=== PATIENT | female | born 1940 | race Caucasian/White ===

== ENCOUNTER → 2016-11-26 | Outpatient (CLI) | payer OTHER ==
[~2016-11-26] MED LIST: ATEN-171 PO; ATEN50TA21 PO; CITA20TA4 PO; CLX/20 PO; COEN1CAP17 PO; CRS10 PO; CYAN500T13 PO; DOCU100T7 PO; DOXY100C PO; MAGN1TAB19 PO; MECL1CHW4 PO; MISCCAP80 PO; MULTTAB58 PO; OMEG340C PO; OMEP20CA9 PO; OXYC1TAB3 PO; POTA20TA13 PO; PRED20TA PO; ROSU10TA24 PO
[2016-11-26 13:46] LABS: ESTIMATED AVERAGE GLUCOSE 111 mg/dl; HA1C FLAG Normal (Normal)
[2016-11-26 13:48] LABS: ALT/SGPT 30 U/L (12-78); AST/SGOT 22 U/L (15-37); BLOOD UREA NITROGEN 16 mg/dl (7-18); BUN/CREATININE RATIO 20.9 (10-20); CALCIUM 9.1 mg/dl (8.5-10.1); CARBON DIOXIDE 25 mmol/L (21-32); CHLORIDE 104 mmol/L (98-107); CHOLESTEROL 177 mg/dl (0-200); CREATININE 0.74 mg/dl (0.60-1.20); GLUCOSE 88 mg/dl (70-99); POTASSIUM 3.6 mmol/L (3.5-5.1); SODIUM 141 mmol/L (136-145); TRIGLYCERIDES 104 mg/dl (0-150); VERY LOW DENSITY LIPOPROT CALC 21 mg/dl
[2016-11-26 13:58] LABS: ALB/GLOB RATIO 1.2 (0.9-2); ALKALINE PHOSPHATASE 102 U/L (45-117); CHOLESTEROL/HDL RATIO 2.9; HDL CHOLESTEROL 62 mg/dl; LDL CHOLESTEROL CALCULATED 94 mg/dl
== END | disposition home or self-care (01) ==
LOC: C.LAB 12:00
PROVIDERS: ATTEND Internal Medicine
DX: R73.09 Other abnormal glucose (principal)

== ENCOUNTER → 2016-11-27 | Outpatient (CLI) | payer OTHER ==
--- NOTE | 2016-11-27 16:18 | MAMMOGRAPHY REPORT ---
BILATERAL DIGITAL SCREENING MAMMOGRAM WITH CAD: 11/27/2016 CLINICAL HISTORY: Routine screening examination. TECHNIQUE: Bilateral CC and MLO views were obtained. Current study was also evaluated with a Comput er Aided Detection (CAD) system. COMPARISON: Comparison is made to exams dated: 11/22/2015 mammogram, 08/18/2014 mammogram, 05/08/2012 mammogram, 04/23/2011 mammogram, 04/19/2010 mammogram - [facility], and 04/18/2009. BREAST COMPOSITION: There are scattered areas of fibroglandular density in both breasts. FINDINGS: There are benign calcifications scattered in the breasts. Minimal vascular calcification . An asymmetry in the lateral right breast appears very similar to the 04/19/2010, 04/15/2008 and 0 05/08/2012 mammograms, most likely normal glandular tissue. No new suspicious mass, architectural di stortion or cluster of microcalcifications is seen. IMPRESSION: ACR BI-RADS CATEGORY 1: NEGATIVE There is no mammographic evidence of malignancy. A 1 year screening mammogram is recommended. The p atient will receive written notification of the results. Approximately 10% of breast cancers are not detected with mammography. A negative mammographic repor t should not delay biopsy if a clinically suggestive mass is present. Sabrina Sears M.D. ay/:11/27/2016 15:00:29 Brass Bobbin Winder: Martha COBURN(Georges)(Cata), [facility] letter sent: Normal 1/2 BI-RADS Code: ACR BI-RADS Category 1: Negative
== END | disposition home or self-care (01) ==
LOC: C.MAMM 14:34
PROVIDERS: ATTEND Internal Medicine
DX: Z12.31 Encounter for screening mammogram for malignant neoplasm of breast (principal)

== ENCOUNTER 2017-07-23 16:22 | Emergency (ER) | payer OTHER ==
[~2017-07-23] VITALS: Ht 167.6 cm; Wt 79.6 kg
[~2017-07-23 16:22] MED LIST changes: -ATEN50TA21 PO; -CLX/20 PO; -COEN1CAP17 PO; -DOCU100T7 PO; -DOXY100C PO; -MAGN1TAB19 PO; -MULTTAB58 PO; -OMEP20CA9 PO; -OXYC1TAB3 PO; -POTA20TA13 PO; -PRED20TA PO; -ROSU10TA24 PO
[2017-07-23 16:27] VITALS: TEMP 36.8; Ht 167.6 cm; Wt 79.6 kg
[2017-07-23] MEDS ORDERED: KETOROLAC TROMETHAMINE 30 MG/ML VIAL IV STA (16:48)
[2017-07-23] MEDS ORDERED: DiphenhydrAMINE HCL 50 MG/ML VIAL IV STA (16:48)
[2017-07-23] MEDS ORDERED: SODIUM CHLORIDE 0.9% 1000ML 1,000 ML IV STA (16:48)
[2017-07-23] MEDS ORDERED: PROCHLORPERAZINE 5 MG/ML 2 ML VIAL IV STA (16:48)
[2017-07-23] MEDS ORDERED: ATEN50TA21 PO (17:03)
[2017-07-23] MEDS ORDERED: CLX/20 PO (17:03)
[2017-07-23] MEDS ORDERED: ROSU10TA24 PO (17:03)
--- NOTE | 2017-07-23 17:12 | DIAGNOSTIC IMAGING REPORT ---
CT SCAN OF THE BRAIN WITHOUT IV CONTRAST CLINICAL HISTORY: Headache. COMPARISON STUDY: CT of the brain dated 04/30/2014. TECHNIQUE: Unenhanced axial CT scan of the brain is performed from the vertex to the skull base. FINDINGS: Brain parenchyma: There are age-related involutional changes noting mild subcortical and periventricular microangiopathic change. There is no hemorrhage, mass effect, or evidence of acute territorial ischemia by CT criteria. Peñaloza-white matter is preserved. No extra-axial fluid collection is seen. Ventricles, sulci, cisterns: Prominent secondary to involutional change. Intracranial vasculature: There is atherosclerotic calcification of the cavernous carotid arteries. Calvarium: Unremarkable. Sinuses and mastoids: There is near complete opacification of the right maxillary antrum. Thickening and sclerosis of the sinus wall suggests chronicity. Calcified nodule debris is noted. Trace mucosal thickening is seen in the right frontal sinuses and the ethmoid sinuses. The mastoid air cells are well pneumatized. Orbits: The bony orbits are grossly intact. There are bilateral ocular lens implants. IMPRESSION: 1. There is no hemorrhage, mass effect, or evidence of acute territorial ischemia by CT criteria. 2. Chronic appearing paranasal sinus disease as above, greatest involving the right maxillary antrum. Electronically signed by: Reggie Hogan M.D. 07/23/2017 5:11 PM Dictated Date/Time: 07/23/2017 5:08 PM
[2017-07-23] MEDS ORDERED: OMEP20CA9 PO (17:18)
[2017-07-23] MEDS ORDERED: MULTTAB58 PO (17:18)
[2017-07-23] MEDS ORDERED: COEN1CAP17 PO (17:18)
[2017-07-23] MEDS ORDERED: POTA20TA13 PO (17:18)
[2017-07-23] MEDS ORDERED: MAGN1TAB19 PO (17:18)
[2017-07-23] MEDS ORDERED: DOCU100T7 PO (17:18)
--- NOTE | 2017-07-23 17:20 | EMERGENCY ROOM VISIT NOTE ---
ED Visit Note First contact with patient: 16:33 CHIEF COMPLAINT: Migraine headache - right side HISTORY OF PRESENT ILLNESS: This 77-year-old female patient presented to the emergency department ambulatory, with her daughter, with complaints of acute onset of a severe right sided headache that started approximately 2 hours prior to arrival. The patient states she did have a similar episode 2 days ago, where she had sudden onset of a right-sided headache. The patient states that she does have history of migraines, which have presented similarly, however has never come on all at once. The patient states on Saturday, she was able to control the headache with 2 extra strength Excedrin. She states she did take some Excedrin today, but is not experiencing relief of her symptoms. The patient was recently treated for a sinus infection, however did not take the entire course of the Augmentin. She states she took it for approximately 5 days. Patient did take a dose of Augmentin this evening when the headache began. She does have history of migraines, but has not had one for approximately 15 years. The pain at this time is severe on the right side of the face, radiating into the ear and the neck. Patient denies any trauma or falling. The patient states her depression has been worsening recently, and she has been crying a lot. The patient complains of her right teeth hurting, Lasix and sensitivity, and a pressure-like sensation in her head. The patient rates the pain 10/10. The patient denies fever or chills recently, and there is no weakness or numbness of the extremities. There is no difficulty with speech or vision. The pain is severe, constant, and it is slowly increasing in severity. This is not the worst headache of the life. She has not had recent imaging. The patient does report a history of sinus problems, and did recently begin seeing a local ENT. She became very concerned because her father of a CVA. She denies any dizziness, confusion, slurred speech, or facial droop. REVIEW OF SYSTEMS: A 10 system review of systems was performed with positives and pertinent negatives listed in the history of present illness. All other systems were reviewed and are negative. ALLERGIES: None MEDICATIONS: Excedrin, atenolol/chlorthalidone, citalopram, CoQ10, Crestor, magnesium, multivitamin, potassium, MiraLAX PMH: Migraines, hypertension, depression, hyperlipidemia, constipation, hypokalemia SOCIAL HISTORY: The patient lives locally with family. She denies drug, alcohol , tobacco use. PHYSICAL EXAM: Vital Signs: Reviewed Nurse's notes, vital signs stable. GENERAL: This is a 77-year-old white female, who appears in pain, but non toxic in appearance and in no acute distress. MENTAL STATUS: Alert, oriented, and coherent. HEENT: Normocephalic. PERRLA. EOMI. Nares patent, turbinates not inflamed. No drainage. There is tenderness of the right maxillary sinus. Tympanic membranes pearly peñaloza without erythema or effusion bilaterally. Mucous membranes moist. NECK: Supple, no nuchal rigidity, nontender, no lymphadenopathy. HEART: Regular rhythm and normal rate without murmurs, ectopy, gallops, or rubs. LUNGS: Clear to auscultation bilaterally without wheezes, rales or rhonchi. No dullness to percussion. No accessory muscle use. No retractions. SKIN: Normal. NEUROLOGICAL: Pupils are round, equal and react to light. The optic fundi are normal and the discs are flat. The patient moves all extremities well and the gait is normal. RADIOLOGY: CT Head without Contrast: CT SCAN OF THE BRAIN WITHOUT IV CONTRAST CLINICAL HISTORY: Headache. COMPARISON STUDY: CT of the brain dated 04/30/2014. TECHNIQUE: Unenhanced axial CT scan of the brain is performed from the vertex to the skull base. FINDINGS: Brain parenchyma: There are age-related involutional changes noting mild subcortical and periventricular microangiopathic change. There is no hemorrhage, mass effect, or evidence of acute territorial ischemia by CT criteria. Peñaloza-white matter is preserved. No extra-axial fluid collection is seen. Ventricles, sulci, cisterns: Prominent secondary to involutional change. Intracranial vasculature: There is atherosclerotic calcification of the cavernous carotid arteries. Calvarium: Unremarkable. Sinuses and mastoids: There is near complete opacification of the right maxillary antrum. Thickening and sclerosis of the sinus wall suggests chronicity. Calcified nodule debris is noted. Trace mucosal thickening is seen in the right frontal sinuses and the ethmoid sinuses. The mastoid air cells are well pneumatized. Orbits: The bony orbits are grossly intact. There are bilateral ocular lens implants. IMPRESSION: 1. There is no hemorrhage, mass effect, or evidence of acute territorial ischemia by CT criteria. 2. Chronic appearing paranasal sinus disease as above, greatest involving the right maxillary antrum. CT Sinuses without Contrast: SINUSES-MAXILLOFACIAL W/O CT DOSE: HISTORY: Pain right side headache/sinus pain TECHNIQUE: Multiaxial CT images of the paranasal sinuses were performed and reformatted in the coronal plane without the use of contrast. A dose lowering technique was utilized adhering to the principles of ALARA. COMPARISON: None. FINDINGS: Complete opacification right maxillary sinus. Partial calcification what is potentially expansile polypoid change. Expansile change through the medial wall right maxillary sinus to the right nasal canal and associated nasal turbinates. Nasal turbinates themselves show moderate hypertrophic change. There is complete occlusion of the right ostiomeatal unit which is expanded. Minimal mucosal thickening of the ethmoid and frontal air cells. The left ostiomeatal unit is patent. Left maxillary sinus is clear. The orbital margins show no definitive destructive change. The mastoid air cells are clear. The orbits are unremarkable. IMPRESSION: 1. Complete opacification right maxillary sinus with partial calcification of what appears to be expansile polypoid change. 2. The expansile polypoid lesion extends to the right nasal canal and right mid nasal turbinate. 3. Mild mucosal thickening of all remaining sinuses with the left ostiomeatal unit patent. 4. Hypertrophic and polypoid change of the nasal turbinates bilaterally EMERGENCY DEPARTMENT COURSE: I examined the patient. Initial labs were drawn. The patient was given Benadryl, Compazine, Toradol, IV fluids and did note some improvement in her symptoms. EKG did show normal sinus rhythm with a new onset left bundle branch block. The rate was 69 bpm. The patient is not having any cardiac symptoms including chest pain, pressure, dyspnea, or other associated symptoms. She states she was not told that she has a left bundle branch block in the past. Initial labs were reviewed. CBC was without leukocytosis, anemia, thrombocytopenia. CMP is without significant abnormalities. Based on the patient's new onset left bundle branch block, troponin and CK-MB were ordered. These tests were negative. CT of the head and sinuses was ordered and performed. This was reviewed by myself and radiologist with the above findings. I did discuss the case with Dr. Deluca, who did see and evaluate the patient. She did recommend giving the patient IV morphine and Decadron this time, as the patient continues to complain of some lingering pain. We agreed on the assessment and plan and discharge instructions. The patient was given discharge instructions at bedside. Medications were sent to the pharmacy. The patient was discharged home in good condition with her daughter driving. The differential diagnosis includes acute intracranial bleed, meningitis, encephalitis, mass or mass effect, sinusitis, infection, tumor, headache, temporal arteritis and carbon monoxide exposure, and migraine. DIAGNOSIS: Sinus headache, maxillary polyp, Left Bundle Branch Block. DISCHARGE INSTRUCTIONS & TREATMENT: You were seen in the emergency department today for a sinus headache. Imaging did show complete opacification of the right maxillary sinus. You were given pain medication in the emergency department which impairs her ability to drive. Please have drive or operate heavy machinery for the rest of the day. You have been prescribed OxyIR to be used for pain control. Take 1 tablets every 4-6 hours as needed for pain. This is a narcotic medication. You cannot drive or consume alcohol while on this medicine. This medicine should only be used for pain that cannot be controlled with [id number] pain medicines. You were prescribed doxycycline to be taken twice daily for 10 days. This is an antibiotic. All antibiotics have the potential to cause diarrhea. Stop this medication and contact a medical provider if you were to develop any significant adverse side effects including: wheezing, shortness of breath, passing out, vomiting, or a diffuse rash. Always take antibiotics as directed and COMPLETE the ENTIRE course regardless of the improvement of your symptoms. You have been prescribed Prednisone. This is a steroid which will help decrease your inflammation, redness, and itch. Take this medicine as prescribed. Take the ENTIRE 9 day course. It is best to take steroids early in the morning as PM dosing can affect your sleeping patterns. Please relax in a quiet, dark environment today. Drink plenty of fluids and stay well-hydrated. Incidentally, we did notice a left bundle branch block on your EKG. You should follow-up with your PCP regarding this. Your lab work and cardiac enzymes were normal in the emergency department. Please follow up with ENT this week if possible. Contact their office tomorrow to schedule an appointment. Return to the emergency department for worsening headache, dizziness, difficulty with speech, confusion, altered mental status, passing out, chest pain, dyspnea. Problem List Medical Problems: (1) Kidney stones Status: Chronic (2) Migraines Status: Chronic (3) Vertigo Status: Resolved Current/Historical Medications Scheduled Atenolol & Chlorthalidone (Tenoretic 50MG/25MG), 1 TAB PO DAILY Citalopram (Citalopram Hydrobromide), 20 MG PO DAILY Coenzyme Q10 (Ubidecarenone) (Co Q 10), 100 MG PO DAILY Docusate Sodium (Stool Softener), 100 MG PO BID Doxycycline Hyclate (Vibramycin), 100 MG PO BID Magnesium Oxide (Mg Supplement (Magnesium Oxide), 800 MG PO DAILY Multiple Vitamin (Multivitamin), 1 TAB PO DAILY Omeprazole (Prilosec), 20 MG PO DAILY Potassium Chloride Microencaps (Potassium Chloride Er), 40 MEQ PO DAILY Prednisone (Prednisone), 0 PO DAILY Rosuvastatin Calcium (Rosuvastatin Calcium), 10 MG PO DAILY Scheduled PRN Oxycodone Ir (Roxicodone Ir), 1 TAB PO Q4-6H PRN for Pain Allergies Coded Allergies: No Known Allergies (Unverified , 07/14/14) Vital Signs Date Time Temp Pulse Resp B/P (MAP) Pulse Ox O2 Delivery O2 Flow Rate FiO2 07/23/17 19:01 67 18 134/70 94 07/23/17 18:05 74 15 129/65 96 Room Air 07/23/17 17:20 74 19 153/77 95 Room Air 07/23/17 16:27 36.8 73 18 122/78 94 Room Air Laboratory Results 07/23/17 17:20 Red Blood Count 4.63, Mean Corpuscular Volume 89.8, Mean Corpuscular Hemoglobin 31.5, Mean Corpuscular Hemoglobin Concent 35.1, Mean Platelet Volume 8.8, Neutrophils (%) (Auto) 65.6, Lymphocytes (%) (Auto) 21.5, Monocytes (%) (Auto) 11.3, Eosinophils (%) (Auto) 1.1, Basophils (%) (Auto) 0.2, Neutrophils # (Auto ) 6.28, Lymphocytes # (Auto) 2.06, Monocytes # (Auto) 1.08, Eosinophils # (Auto ) 0.11, Basophils # (Auto) 0.02 07/23/17 17:20 Test 07/23/17 17:20 07/23/17 17:42 White Blood Count 9.58 K/uL (4.8-10.8) Red Blood Count 4.63 M/uL (4.2-5.4) Hemoglobin 14.6 g/dL (12.0-16.0) Hematocrit 41.6 % (37-47) Mean Corpuscular Volume 89.8 fL (80-100) Mean Corpuscular Hemoglobin 31.5 pg (25-34) Mean Corpuscular Hemoglobin Concent 35.1 g/dl (32-36) Platelet Count 259 K/uL (130-400) Mean Platelet Volume 8.8 fL (7.4-10.4) Neutrophils (%) (Auto) 65.6 % Lymphocytes (%) (Auto) 21.5 % Monocytes (%) (Auto) 11.3 % Eosinophils (%) (Auto) 1.1 % Basophils (%) (Auto) 0.2 % Neutrophils # (Auto) 6.28 K/uL (1.4-6.5) Lymphocytes # (Auto) 2.06 K/uL (1.2-3.4) Monocytes # (Auto) 1.08 K/uL (0.11-0.59) Eosinophils # (Auto) 0.11 K/uL (0-0.5) Basophils # (Auto) 0.02 K/uL (0-0.2) RDW Standard Deviation 43.6 fL (36.4-46.3) RDW Coefficient of Variation 13.3 % (11.5-14.5) Immature Granulocyte % (Auto) 0.3 % Immature Granulocyte # (Auto) 0.03 K/uL (0.00-0.02) Anion Gap 5.0 mmol/L (3-11) Est Creatinine Clear Calc Drug Dose 57.1 ml/min Estimated GFR () 75.5 Estimated GFR (Non- 65.2 BUN/Creatinine Ratio 20.6 (10-20) Calcium Level 9.4 mg/dl (8.5-10.1) Total Bilirubin 0.5 mg/dl (0.2-1) Aspartate Amino Transf (AST/SGOT) 31 U/L (15-37) Alanine Aminotransferase (ALT/SGPT) 42 U/L (12-78) Alkaline Phosphatase 122 U/L (45-117) Creatine Kinase MB 0.6 ng/ml (0.5-3.6) Troponin I < 0.015 ng/ml (0-0.045) Total Protein 7.3 gm/dl (6.4-8.2) Albumin 3.7 gm/dl (3.4-5.0) Globulin 3.6 gm/dl (2.5-4.0) Albumin/Globulin Ratio 1.0 (0.9-2) Creatine Kinase MB Ratio (0-3.0) Medications Administered Medications (Trade) Dose Ordered Sig/Deshawn Route Start Time Stop Time Status Last Admin Dose Admin Sodium Chloride 1,000 ml @ 999 mls/hr Q1H1M STAT IV 07/23/17 16:48 07/23/17 17:48 DC 07/23/17 17:20 999 MLS/HR Prochlorperazine Edisylate (Compazine Inj) 5 mg NOW STAT IV 07/23/17 16:48 07/23/17 16:52 DC 07/23/17 17:19 5 MG Ketorolac Tromethamine (Toradol Inj) 30 mg NOW STAT IV 07/23/17 16:48 07/23/17 16:52 DC 07/23/17 17:20 30 MG Diphenhydramine HCl (Benadryl Inj) 25 mg NOW STAT IV 07/23/17 16:48 07/23/17 16:52 DC 07/23/17 17:19 25 MG Dexamethasone Sodium Phosphate (Decadron Inj) 10 mg NOW ONCE IV 07/23/17 18:30 07/23/17 18:31 DC 07/23/17 18:42 10 MG Departure Information Impression Primary Impression: Antral (maxillary) polyp Additional Impression: Left bundle branch block (LBBB) on electrocardiogram Dispostion Home / Self-Care Condition GOOD Prescriptions Prednisone (Prednisone) 20 Mg Tab 0 PO DAILY, #18 TAB 3 DAILY FOR 3 DAYS, THEN 2 DAILY FOR 3 DAYS, THEN 1 DAILY FOR 3 DAYS. Prov: Katie Lroenzana PA-C 07/23/17 Oxycodone Ir (Roxicodone Ir) 5 Mg Tab 1 TAB PO Q4-6H Y for Pain, #15 TAB For Initial Treatment Prov: Katie Lorenzana PA-C 07/23/17 Doxycycline Hyclate (VIBRAMYCIN) 100 Mg Cap 100 MG PO BID for 10 Days, #20 CAP Prov: Katie Lorenzana PA-C 07/23/17 Referrals Leonidas Crisostomo M.D. (PCP) Nimo Mcguire PA Patient Instructions ED Headache Sinus, My [facility] Additional Instructions You were seen in the emergency department today for a sinus headache. Imaging did show complete opacification of the right maxillary sinus. You were given pain medication in the emergency department which impairs her ability to drive. Please have drive or operate heavy machinery for the rest of the day. You have been prescribed OxyIR to be used for pain control. Take 1 tablets every 4-6 hours as needed for pain. This is a narcotic medication. You cannot drive or consume alcohol while on this medicine. This medicine should only be used for pain that cannot be controlled with [id number] pain medicines. You were prescribed doxycycline to be taken twice daily for 10 days. This is an antibiotic. All antibiotics have the potential to cause diarrhea. Stop this medication and contact a medical provider if you were to develop any significant adverse side effects including: wheezing, shortness of breath, passing out, vomiting, or a diffuse rash. Always take antibiotics as directed and COMPLETE the ENTIRE course regardless of the improvement of your symptoms. You have been prescribed Prednisone. This is a steroid which will help decrease your inflammation, redness, and itch. Take this medicine as prescribed. Take the ENTIRE 9 day course. It is best to take steroids early in the morning as PM dosing can affect your sleeping patterns. Please relax in a quiet, dark environment today. Drink plenty of fluids and stay well-hydrated. Incidentally, we did notice a left bundle branch block on your EKG. You should follow-up with your PCP regarding this. Your lab work and cardiac enzymes were normal in the emergency department. Please follow up with ENT this week if possible. Contact their office tomorrow to schedule an appointment. Return to the emergency department for worsening headache, dizziness, difficulty with speech, confusion, altered mental status, passing out, chest pain, dyspnea. Problem Qualifiers
--- NOTE | 2017-07-23 17:28 | DIAGNOSTIC IMAGING REPORT ---
SINUSES-MAXILLOFACIAL W/O CT DOSE: HISTORY: Pain right side headache/sinus pain TECHNIQUE: Multiaxial CT images of the paranasal sinuses were performed and reformatted in the coronal plane without the use of contrast. A dose lowering technique was utilized adhering to the principles of ALARA. COMPARISON: None. FINDINGS: Complete opacification right maxillary sinus. Partial calcification what is potentially expansile polypoid change. Expansile change through the medial wall right maxillary sinus to the right nasal canal and associated nasal turbinates. Nasal turbinates themselves show moderate hypertrophic change. There is complete occlusion of the right ostiomeatal unit which is expanded. Minimal mucosal thickening of the ethmoid and frontal air cells. The left ostiomeatal unit is patent. Left maxillary sinus is clear. The orbital margins show no definitive destructive change. The mastoid air cells are clear. The orbits are unremarkable. IMPRESSION: 1. Complete opacification right maxillary sinus with partial calcification of what appears to be expansile polypoid change. 2. The expansile polypoid lesion extends to the right nasal canal and right mid nasal turbinate. 3. Mild mucosal thickening of all remaining sinuses with the left ostiomeatal unit patent. 4. Hypertrophic and polypoid change of the nasal turbinates bilaterally The above report was generated using voice recognition software. It may contain grammatical, syntax or spelling errors. Electronically signed by: Juan Diego Watkins M.D. 07/23/2017 5:26 PM Dictated Date/Time: 07/23/2017 5:23 PM
[2017-07-23 17:47] LABS: BASO % 0.2 %; BASO ABS # 0.02 K/uL (0-0.2); COMPLETE YES; EOS % 1.1 %; HEMATOCRIT 41.6 % (37-47); IG% 0.3 %; LYMPH % 21.5 %; LYMPH ABS # 2.06 K/uL (1.2-3.4); MEAN CELL VOLUME 89.8 fL (80-100); MEAN CORPUSCULAR HEMOGLOBIN 31.5 pg (25-34); MEAN CORPUSCULAR HGB CONC 35.1 g/dl (32-36); MEAN PLATELET VOLUME 8.8 fL (7.4-10.4); MONO % 11.3 %; NEUT % 65.6 %; PLATELET COUNT 259 K/uL (130-400); RED BLOOD COUNT 4.63 M/uL (4.2-5.4); WHITE BLOOD COUNT 9.58 K/uL (4.8-10.8)
[2017-07-23 18:05] LABS: ALT/SGPT 42 U/L (12-78); BLOOD UREA NITROGEN 18 mg/dl (7-18); BUN/CREATININE RATIO 20.6 (10-20); CALCIUM 9.4 mg/dl (8.5-10.1); CARBON DIOXIDE 33 mmol/L (21-32); CHLORIDE 104 mmol/L (98-107); CREATININE 0.85 mg/dl (0.60-1.20); GLUCOSE 80 mg/dl (70-99); POTASSIUM 3.5 mmol/L (3.5-5.1); SODIUM 142 mmol/L (136-145)
[2017-07-23 18:08] LABS: ALKALINE PHOSPHATASE 122 U/L (45-117); AST/SGOT 31 U/L (15-37)
[2017-07-23] MEDS ORDERED: MoRPHine SULFATE 4 MG/ML 1 ML CARP\\VIAL IV STA (18:25)
[2017-07-23] MEDS ORDERED: DEXAMETHASONE SOD INJ 10 MG/ML VIAL IV ONE (18:30)
[2017-07-23] MEDS ORDERED: MoRPHine SULFATE 2 MG/ML CARP ONE (18:33)
[2017-07-23] MEDS ORDERED: PRED20TA PO (18:40)
[2017-07-23] MEDS ORDERED: DOXY100C PO (18:40)
[2017-07-23] MEDS ORDERED: OXYC1TAB3 PO (18:40)
[2017-07-23 19:01] VITALS: BP 134/70; PULSE 67; O2SAT 94
--- NOTE | 2017-07-23 22:20 | EMERGENCY ROOM VISIT NOTE ---
ED Visit Note First contact with patient: 16:33 I have personally seen and evaluated the patient with the PA. I agree with the diagnosis and management decisions and have been personally involved in the case. The patient was placed on a steroid taper, doxycycline and will continue her nasal spray as prescribed. She is established with ENT and will follow-up with them in the next week. The patient seems comfortable with the plan will be discharged to her family members. She was advised to return to the ER for worsening of symptoms or any medical concerns. Please see Katie Lorenzana PA-C's notes for further details of the history, physical and visit.
== END 2017-07-23 19:00 | disposition home or self-care (01) ==
LOC: C.EDB 16:23 → C.EDC 19:00
DX: J33.8 Other polyp of sinus (principal); I44.7 Left bundle-branch block, unspecified; I10 Essential (primary) hypertension; F32.9 Major depressive disorder, single episode, unspecified; E78.5 Hyperlipidemia, unspecified; E87.6 Hypokalemia

== ENCOUNTER → 2017-08-14 | Outpatient (CLI) | payer OTHER ==
[~2017-08-14] MED LIST changes: -ATEN-171 PO; +ATEN50TA21 PO; -CITA20TA4 PO; +CLX/20 PO; +COEN1CAP17 PO; -CRS10 PO; -CYAN500T13 PO; +DOCU100T7 PO; +MAGN1TAB19 PO; -MECL1CHW4 PO; -MISCCAP80 PO; +MULTTAB58 PO; -OMEG340C PO; +OMEP20CA9 PO; +OXYC1TAB3 PO; +POTA20TA13 PO; +PRED20TA PO; +ROSU10TA24 PO
--- NOTE | 2017-08-14 10:38 | DIAGNOSTIC IMAGING REPORT ---
FUSION CT SINUSES W/O CLINICAL HISTORY: 77 years-old Female presenting with 09.82 Postnasal dripTO BE DONE IN 2 WEEKS. E X0D E [id number]. TECHNIQUE: Multidetector CT of the sinuses was performed without the use of intravenous contrast. IV contrast: None. A dose lowering technique was used consistent with the principles of ALARA (as low as reasonably achievable). COMPARISON: 07/23/2017. CT DOSE (mGy.cm): The estimated cumulative dose is 620.44 mGy.cm. FINDINGS: Derrick Helper topogram: Unremarkable. The right maxillary sinus is again completely opacified by peripherally hypodense and essentially hyperdense calcified material. There is erosion of the medial wall of the right maxillary sinus and obstruction secondary to mucosal thickening of the right ostiomeatal unit. Sclerosis of the right maxillary sinus further suggest chronic sinusitis. Remainder of sinuses and mastoid air cells clear. Left ostiomeatal units patent. Nasofrontal ethmoidal recesses patent. Minimal rightward deviation of the bony nasal septum without evidence of spurring. Mary bullosa configuration of the middle turbinates anteriorly. No evidence of bony dehiscence of the optic canals. Limited intracranial evaluation within normal limits. Orbits demonstrate absent bilateral port gamble lenses. No intraorbital inflammatory change. Remaining soft tissues of the face normal. Upper cervical spine with mild degenerative change. 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 Sclerotic right maxillary sinus moses further evidence chronic sinusitis. Electronically signed by: Leonidas Lemus M.D. 08/14/2017 10:37 AM Dictated Date/Time: 08/14/2017 10:31 AM
== END | disposition home or self-care (01) ==
LOC: C.CTS 10:13
PROVIDERS: ATTEND Physician Assistant
DX: R09.82 Postnasal drip (principal)

== ENCOUNTER → 2017-08-23 | Outpatient (CLI) | payer OTHER ==
[~2017-08-23] MED LIST changes: +BIOT1CAP8 PO; +COEN100C7 PO; +MAGN500C PO; +MISCCAP80 PO; +MULT-506 PO; +REGADENOSON 0.4 MG/5 ML SYR ONE; +VITAMIN B PO; +[UNRECOGNIZED DRUG - OTHER] PO
--- NOTE | 2017-08-27 13:51 | MYOCARDIAL PERFUSION SCAN ---
ONE-DAY NUCLEAR MEDICINE TECHNETIUM-99M CARDIOLITE MYOCARDIAL PERFUSION SCAN CLINICAL HISTORY: This stress test is being performed as a preoperative evaluation as the patient has a left bundle branch block. COMPARISON: None. TECHNIQUE: For the stress portion of the study, 28.5 mCi of Technetium 99 m Cardiolite IV was injected at 01:25 pm on 08/23/2017. 30 minutes following the injection, imaging of the heart was performed in multiple projection. For the rest portion of the study, 11.1 mCi of Technetium 99 m Cardiolite was injected IV at 11:29 am. One hour following the injection, imaging of the heart was performed in the same projections. For the stress portion of the study, 0.4 mg of Lexiscan was injected intravenously as per protocol. The patient did not experience chest discomfort and there were no EKG changes over the baseline abnormality. Following the study, the patient was hemodynamically stable without complaints. FINDINGS: The short axis, vertical long axis, and horizontal long axis images were reviewed in detail. There is a small defect in the distal anteroseptum present at stress and rest. This demonstrates normal systolic function and the rotating images suggest that this is breast attenuation rather than a myocardial infarction. There is no evidence of stress induced myocardial ischemia. The left ventricle demonstrates hyperdynamic systolic function without wall motion abnormalities. The ejection fraction is greater than 70%. CONCLUSIONS: 1. No definite scintigraphic evidence of a prior myocardial infarction or stress induced myocardial ischemia. 2. No Lexiscan induced chest pain. 3. No Lexiscan induced EKG changes over the baseline abnormality. 4. Hyperdynamic left ventricular ejection fraction of greater than 70% without wall motion abnormalities.
--- NOTE | 2017-08-29 12:41 | CODING QUERY MEDICAL NECESSITY ---
SUPPORTING DIAGNOSIS NEEDED Brad RODRÍGUEZ, A supporting diagnosis is required for the test/procedure performed on this patient in order for us to be reimbursed by the patient's insurance. Please provide a supporting diagnosis for the following test/procedure listed below next to the test name along with your signature. *If there is no additional diagnosis for this patient that would support the following test/procedure please document that below next to the test/procedure. Test(s)/Procedure(s) that require a supporting diagnosis: * ([id number]) MYOCARDIA PERF IMG (TC) SD DIAGNOSIS: DATE OF SERVICE: 08/23/17 Provider Signature: Date: Thank you Edmundo Pedroza Health Information Management Once completed, please kindly fax back to [phone] For questions please call [phone]
== END | disposition home or self-care (01) ==
LOC: C.NUCL 10:53
PROVIDERS: ATTEND Physician Assistant
DX: I44.7 Left bundle-branch block, unspecified (principal)

== ENCOUNTER → 2017-09-18 | Outpatient (CLI) | payer OTHER ==
[~2017-09-18] MED LIST changes: -COEN1CAP17 PO; -DOCU100T7 PO; -MAGN1TAB19 PO; -MULTTAB58 PO; -OXYC1TAB3 PO; -PRED20TA PO; -REGADENOSON 0.4 MG/5 ML SYR ONE
[2017-09-18 13:18] LABS: BASO % 0.4 %; BASO ABS # 0.03 K/uL (0-0.2); COMPLETE YES; EOS % 2.6 %; IG% 0.3 %; LYMPH % 30.1 %; LYMPH ABS # 2.23 K/uL (1.2-3.4); MEAN CELL VOLUME 88.8 fL (80-100); MEAN CORPUSCULAR HEMOGLOBIN 31.2 pg (25-34); MEAN CORPUSCULAR HGB CONC 35.1 g/dl (32-36); MEAN PLATELET VOLUME 8.9 fL (7.4-10.4); MONO % 7.4 %; NEUT % 59.2 %; PLATELET COUNT 234 K/uL (130-400); RED BLOOD COUNT 4.84 M/uL (4.2-5.4); WHITE BLOOD COUNT 7.41 K/uL (4.8-10.8)
[2017-09-18 13:29] LABS: PARTIAL THROMBOPLASTIN RATIO 1.1; PROTHROMBIN TIME (PATIENT) 10.9 SECONDS (9.0-12.0)
[2017-09-18 13:44] LABS: POTASSIUM 3.2 mmol/L (3.5-5.1)
== END | disposition home or self-care (01) ==
LOC: C.LAB 12:32
DX: Z01.812 Encounter for preprocedural laboratory examination (principal)

== ENCOUNTER → 2017-09-23 | Day surgery (SDC) | payer OTHER ==
[2017-08-29 11:46] VITALS: Ht 166.4 cm; Wt 79.5 kg
[~2017-09-23] VITALS: Ht 166.4 cm; Wt 79.5 kg
[~2017-09-23] MED LIST changes: +ATROPINE SULFATE 0.1 MG/ML 5ML SYR IV PRN; +CEFAZOLIN 2000MG IV PUSH 10 ML IV SCH; +DEXAMETHASONE SOD INJ 4 MG/ML VIAL ONE; +EpHEDrine SULFATE INJ 50 MG/ML AMP IV PRN; +EpHEDrine SULFATE INJ 50 MG/ML AMP ONE; +EpINEphrine INJ 1MG/ML AMP 1 MG/ML AMP ONE; +FENTANYL CITRATE INJ 50 MCG/1 ML 2 ML VIAL ONE; +GLYCOPYRROLATE INJ 0.2 MG/ML VIAL ONE; +HYDROCODONE/ACETAMOPHEN 5/325MG TAB PO PRN; +LACTATED RINGER'S 1000ML 1,000 ML IV SCH; +LIDOCAINE 4% MPF SOAK 5 ML = 1 DOSE TOP ONE; +LIDOCAINE HCL 2% 2 ML VIAL (20MG/ML) ONE; +LIDOCAINE/EPINEPHRINE 1% INJ 50 ML VIAL ONE; +MIDAZOLAM HCL 1 MG/ML 2ML VIAL ONE; +NEOSTIGMINE METHYLSULFATE 5 MG/5 ML SYR ONE; +ONDANSETRON INJ 2 MG/ML 2 ML VIAL IV PRN; +ONDANSETRON INJ 2 MG/ML 2 ML VIAL ONE; +OXYMETAZOLINE HCL 0.05% NA SPR 15 ML BTL PRN; +OXYMETAZOLINE HCL 0.05% NA SPR 15 ML BTL SCH; +PHENYLEPHRINE HCL INJ 10 MG/ML VIAL ONE; +PROPOFOL IV EMULSION 10 MG/ML 20 ML VIAL IV ONE; +SUCCINYLCHOLINE CHLORIDE 20 MG/ML 10 ML VIAL IV ONE
--- NOTE | 2017-09-23 13:56 | History and Physical: Surg Cnt ---
History & Physical Date Sep 23, 2017. Chief Complaint RIGHT CHRONIC SINUSITIS, BILATERAL CANELO BULLOSAE, BILATERAL INFERIOR TURBINATE HYPERTROPHY History of Present Illness The patient is a 77 year old female with complaints of CHRONIC RIGHT MAXILLARY SINUSITIS UNRESPONSIVE TO MAXIMAL MEDICAL RX. Past Medical/Surgical History Medical Problems: (1) Carpal Tunnel Syndrome (2) Cervical Disc Displacmnt (3) Cervicalgia (4) Hyperlipidemia Nec/Nos (5) Kidney stones (6) Migraines (7) Stricture Of Cervix (8) Vertigo ALSO ARTHRITIS, DEPRESSION, GERD, LEFT BBB PSH: S/P KNEE SURGERY, CERVICAL FUSION SURGERY, CARPAL TUNNEL SURGERY, OVARIAN CYSTECTOMY, SHOULDER SURGERY Allergies Coded Allergies: No Known Allergies (Unverified , 09/23/17) Home Medications Scheduled Atenolol & Chlorthalidone (Tenoretic 50MG/25MG), 1 TAB PO QAM Biotin (Biotin), 1 CAP PO QAM Citalopram (Citalopram Hydrobromide), 2 TAB PO QAM Coenzyme Q10 (Ubidecarenone) (Coq10), 1 CAP PO QAM Magnesium Oxide (Mg Supplement (Magnesium), 2 CAP PO QAM Multivitamin (Multivitamin), 1 TAB PO QAM Potassium Chloride Microencaps (Potassium Chloride Er), 40 MEQ PO QAM Probiotic Product (Probiotic), 1 CAP PO QAM Rosuvastatin Calcium (Rosuvastatin Calcium), 10 MG PO QAM [Complete Metabolism], 1 CAP PO QAM [Vitamin B], 1 TAB PO QAM Physical Examination Skin: warm/dry, no rash Eyes: normal inspection, EOMI, sclerae normal ENT: + pertinent finding (BILATERAL INFERIOR AND MIDDLE TURBINATE HYPERTROPHY) Head: normocephalic, atraumatic Neck: supple, no adenopathy, trachea midline Respiratory/Chest: lungs clear, normal breath sounds, no respiratory distress Cardiovascular: regular rate, rhythm, no edema, no murmur Neurologic/Psych: no motor/sensory deficits, alert, normal reflexes, oriented x 3 Diagnosis RIGHT CHRONIC SINUSITIS, BILATERAL CANELO BULLOSAE, BILATERAL INFERIOR TURBINATE HYPERTROPHY Plan of Treatment RIGHT MAXILLARY ANTROSTOMY, RIGHT ANTERIOR ETHMOIDECTOMY, BILATERAL CANELO BULLOSAE RESECTION, BILATERAL INFERIOR TURBINATE REDUCTION
--- NOTE | 2017-09-23 15:01 | [facility] Operative Report ---
Operative Report Operative Date Sep 23, 2017. Pre-Operative Diagnosis Chronic Sinusitis, Hypertrophy of Nasal Turbinates Post-Operative Diagnosis Same Procedure(s) Performed Bilateral Endosocopic Sinus Surgery, Bilateral Inferior Turbinate Reduction Surgeon Dr. Jimenez Radiation Protection Engineer Surgeon(s) None Estimated Blood Loss 50ML Findings 1. BILATERAL CANELO BULLOSA 2. BILATERAL INFERIOR TURBINATE HYPERTROPHY 3. PURULENCE AND INSPISSATED SECRETIONS COMPLETELY FILLING THE RIGHT MAXILLARY SINUS WITH SEVERE MUCOSAL EDEMA INVOLVING THE RIGHT MAXILLARY SINUS 4. MILD MUCOSAL THICKENING OF THE RIGHT ANTERIOR ETHMOID SINUS Specimens 1. Right Maxillary Sinus Contents for Culture and Gram Stain A. Right Maxillary Sinus Contents for permanent specimen I attest to the content of the Intraoperative Record and any orders documented therein. Any exceptions are noted below.
--- NOTE | 2017-09-23 15:03 | Discharge Instructions ---
Discharge Instructions Date of Service Sep 23, 2017. Admission Reason for Admission: Chronic Sinusitis, Hypertrophy Inferior Turbinate Discharge Discharge Diagnosis / Problem: SAME Discharge Goals Goal(s): Therapeutic intervention Activity Recommendations Activity Limitations: as noted below LIGHT ACTIVITY FOR 2 WEEKS AND NO DRIVING WHILE ON NORCO . Current Hospital Diet Patient's current hospital diet: Discharge Diet Recommended Diet: Regular Diet Procedures Procedures Performed: Bilateral Endosocopic Sinus Surgery, Bilateral Inferior Turbinate Reduction Pending Studies Studies pending at discharge: no Medical Emergencies . Who to Call and When: Medical Emergencies: If at any time you feel your situation is an emergency, please call 911 immediately. . Non-Emergent Contact Non-Emergency issues call your: Surgeon . . "Provider Documentation" section prepared by Germain Jimenez. . VTE Core Measure Inpt VTE Proph given/why not?: SCD's
[2017-09-23] MEDS: FENTANYL CITRATE INJ 50 MCG/1 ML 2 ML VIAL IV PRN ×4 (15:29→16:01)
--- NOTE | 2017-09-23 15:35 | OPERATIVE REPORT ---
DATE OF OPERATION: 09/23/2017 PREOPERATIVE DIAGNOSES: 1. Right chronic maxillary sinusitis. 2. Bilateral earl bullosa. 3. Bilateral inferior turbinate hypertrophy. POSTOPERATIVE DIAGNOSES: 1. Right chronic maxillary sinusitis. 2. Bilateral earl bullosa. 3. Bilateral inferior turbinate hypertrophy. PROCEDURES: 1. Right maxillary antrostomy with tissue removal. 2. Right anterior ethmoidectomy. 3. Bilateral endoscopic earl bullosa resection. 4. Bilateral inferior turbinate outfracture and turbinoplasty. SURGEON: Dr. Jimenez. ANESTHESIA: General endotracheal. ESTIMATED BLOOD LOSS: 50 mL. FINDINGS: 1. Bilateral earl bullosa. 2. Bilateral inferior turbinate hypertrophy. 3. Inspissated secretions and purulence completely filling the right maxillary sinus. 4. Severe right maxillary sinus mucosal thickening. 5. Mild right anterior ethmoid sinus mucosal thickening. SPECIMENS: Right maxillary sinus contents for Gram stain, aerobic culture and sensitivity as well as for permanent pathological assessment. COMPLICATIONS: None. INDICATIONS FOR THE PROCEDURE: The patient is a 77-year-old female with a history of right chronic sinusitis which has been unresponsive to maximal medical therapy. In addition, the patient has complaints of bilateral sinonasal congestion and nasal obstruction. She was found to have bilateral earl bullosa, bilateral inferior turbinate hypertrophy, and completely opacified right maxillary sinus on posttreatment fusion CT scan of the sinuses. She presents for the above-mentioned procedures on an outpatient elective basis. DESCRIPTION OF PROCEDURE: After informed consent had been obtained from the patient, the patient was wheeled to the operating room and placed on the operating table in supine position. Monitors were placed. After induction of general endotracheal anesthesia, the patient was prepped in usual fashion for endoscopic sinus surgery. Lidocaine and epinephrine pledgets were placed in the bilateral nasal cavities and pressure applied. After allowing adequate time for vasoconstriction, the left-sided pledgets were removed and 1% lidocaine with 1:100,000 epinephrine was used to inject the left middle turbinate. The right middle turbinate was then addressed in a similar fashion. A sickle knife was used to incise the left middle turbinate longitudinally and the lateral half of the left middle turbinate was removed using straight Arnie-Cut forceps and powered instrumentation. In this fashion, an endoscopic left earl bullosa resection was performed. Powered instrumentation was used to smooth the edge of the lateral half of the middle turbinate. Merogel was placed into the left middle meatus for hemostasis. The right side was then addressed in a similar fashion with the endoscopic earl bullosa resection. There was purulent debris noted to be emanating from the right maxillary sinus. A right maxillary antrostomy was performed using powered instrumentation. A large amount of inspissated secretions and purulence was carefully evacuated from the right maxillary sinus. Care was taken to evacuate all of the sinus contents. There was significant amount of inspissated secretions and purulence, which was sent off for Gram stain, aerobic culture and sensitivity. Severe mucosal thickening was seen within the right maxillary sinus and several pieces of mucosa were removed using 45 degree Arnie-Cut forceps for permanent pathological assessment. A right anterior ethmoidectomy was then performed using powered instrumentation. Merogel was then placed in the right ethmoid cavity/middle meatus. A Ruelas elevator was then used to infracture and subsequently outfracture the inferior turbinates bilaterally. Lidocaine 1% with 1:100,000 epinephrine was used to inject the inferior turbinates bilaterally. Using a 2.0 mm turbinate blade using powered instrumentation, bilateral inferior turbinoplasties were performed in a submucosal fashion. The nasal cavities and nasopharynx were then suctioned. An orogastric tube was placed and the stomach was suctioned free of air and stomach contents. This marked the end of the case. The patient tolerated the procedure well. There were no apparent complications. The patient was extubated and transferred to recovery room in stable condition. I attest to the content of the Intraoperative Record and any orders documented therein. Any exception s are noted below.
[2017-09-23 16:15] VITALS: BP 120/69; PULSE 73; TEMP 36.4; O2SAT 94
--- NOTE | 2017-09-23 16:51 | Anesthesia Progress Nt - [facility] ---
Anesthesia Post Op Note Date & Time Sep 23, 2017 at 16:51 Vital Signs Pain Intensity: 2.0 Vital Signs Past 12 Hours Date Time Temp Pulse Resp B/P (MAP) Pulse Ox O2 Delivery O2 Flow Rate FiO2 09/23/17 16:15 36.4 73 16 120/69 (86) 94 Room Air 09/23/17 16:11 131/36 09/23/17 16:10 68 19 09/23/17 16:10 68 19 96 09/23/17 16:08 36.3 70 20 131/36 94 Room Air 09/23/17 16:06 121/80 09/23/17 16:05 72 23 09/23/17 16:05 72 23 96 09/23/17 16:01 128/59 09/23/17 16:00 70 18 09/23/17 16:00 69 18 94 09/23/17 15:56 135/68 09/23/17 15:55 71 16 09/23/17 15:55 71 16 95 09/23/17 15:51 128/68 09/23/17 15:50 73 16 94 09/23/17 15:50 73 16 09/23/17 15:46 141/70 09/23/17 15:45 75 16 09/23/17 15:45 74 16 93 09/23/17 15:41 122/68 09/23/17 15:40 74 20 94 09/23/17 15:40 73 20 09/23/17 15:36 121/74 09/23/17 15:35 74 18 95 09/23/17 15:35 74 18 09/23/17 15:31 97/85 09/23/17 15:30 74 15 97 09/23/17 15:30 74 15 09/23/17 15:26 117/59 09/23/17 15:25 76 16 95 09/23/17 15:25 76 16 09/23/17 15:21 132/66 09/23/17 15:20 78 13 96 09/23/17 15:20 78 13 09/23/17 15:16 118/76 09/23/17 15:15 36.1 78 18 118/76 94 Humidified Oxygen Mask 09/23/17 11:15 36.2 61 18 137/78 (97) 96 Room Air Notes Mental Status: alert / awake / arousable, participated in evaluation Pt Amnestic to Procedure: Yes Nausea / Vomiting: adequately controlled Pain: adequately controlled Airway Patency, RR, SpO2: stable & adequate BP & HR: stable & adequate Hydration State: stable & adequate Anesthetic Complications: no major complications apparent
== END | disposition home or self-care (01) ==
LOC: X.SURG 10:45
DX: J32.0 Chronic maxillary sinusitis (principal); J34.3 Hypertrophy of nasal turbinates; J34.9 Unspecified disorder of nose and nasal sinuses; F41.8 Other specified anxiety disorders; I10 Essential (primary) hypertension
CPT/HCPCS: 30930; 31255; 31256; S1090

== ENCOUNTER → 2017-11-28 | Outpatient (CLI) | payer OTHER ==
[~2017-11-28] MED LIST changes: -ATROPINE SULFATE 0.1 MG/ML 5ML SYR IV PRN; -CEFAZOLIN 2000MG IV PUSH 10 ML IV SCH; -DEXAMETHASONE SOD INJ 4 MG/ML VIAL ONE; -EpHEDrine SULFATE INJ 50 MG/ML AMP IV PRN; -EpHEDrine SULFATE INJ 50 MG/ML AMP ONE; -EpINEphrine INJ 1MG/ML AMP 1 MG/ML AMP ONE; -FENTANYL CITRATE INJ 50 MCG/1 ML 2 ML VIAL ONE; -GLYCOPYRROLATE INJ 0.2 MG/ML VIAL ONE; -HYDROCODONE/ACETAMOPHEN 5/325MG TAB PO PRN; -LACTATED RINGER'S 1000ML 1,000 ML IV SCH; -LIDOCAINE 4% MPF SOAK 5 ML = 1 DOSE TOP ONE; -LIDOCAINE HCL 2% 2 ML VIAL (20MG/ML) ONE; -LIDOCAINE/EPINEPHRINE 1% INJ 50 ML VIAL ONE; -MIDAZOLAM HCL 1 MG/ML 2ML VIAL ONE; -NEOSTIGMINE METHYLSULFATE 5 MG/5 ML SYR ONE; -OMEP20CA9 PO; -ONDANSETRON INJ 2 MG/ML 2 ML VIAL IV PRN; -ONDANSETRON INJ 2 MG/ML 2 ML VIAL ONE; -OXYMETAZOLINE HCL 0.05% NA SPR 15 ML BTL PRN; -OXYMETAZOLINE HCL 0.05% NA SPR 15 ML BTL SCH; -PHENYLEPHRINE HCL INJ 10 MG/ML VIAL ONE; -PROPOFOL IV EMULSION 10 MG/ML 20 ML VIAL IV ONE; -ROSU10TA24 PO; +ROSU10TA35 PO; -SUCCINYLCHOLINE CHLORIDE 20 MG/ML 10 ML VIAL IV ONE
--- NOTE | 2017-11-29 13:25 | MAMMOGRAPHY REPORT ---
BILATERAL DIGITAL SCREENING MAMMOGRAM TOMOSYNTHESIS WITH CAD: 11/28/2017 CLINICAL HISTORY: Routine screening. Patient has no complaints. TECHNIQUE: Breast tomosynthesis in addition to standard 2D mammography was performed. Current study was also evaluated with a Computer Aided Detection (CAD) system. COMPARISON: Comparison is made to exams dated: 11/27/2016 mammogram, 11/22/2015 mammogram, 08/18/2014 mammogram, 05/08/2012 mammogram, 04/23/2011 mammogram, and 04/19/2010 mammogram - [facility] enter. BREAST COMPOSITION: There are scattered areas of fibroglandular density in both breasts. FINDINGS: No suspicious masses, calcifications, or areas of architectural distortion are noted in ei ther breast. There has been no significant interval change compared to prior exams. Scattered bilater al benign-appearing calcifications are not significantly changed. IMPRESSION: ACR BI-RADS CATEGORY 2: BENIGN There is no mammographic evidence of malignancy. A 1 year screening mammogram is recommended. The pa tient will receive written notification of the results. Approximately 10% of breast cancers are not detected with mammography. A negative mammographic report should not delay biopsy if a clinically suggestive mass is present. Simona Davis M.D. /:11/28/2017 15:14:28 Hide And Skin Classer: Mariely ATKINS)([place]), [facility] letter sent: Normal 1/2 BI-RADS Code: ACR BI-RADS Category 2: Benign
== END | disposition home or self-care (01) ==
LOC: C.MAMM 10:35
PROVIDERS: ATTEND Internal Medicine
DX: Z12.31 Encounter for screening mammogram for malignant neoplasm of breast (principal)

== ENCOUNTER → 2018-03-03 | Outpatient (CLI) | payer OTHER ==
[2018-03-03 17:14] LABS: LIPASE 194 U/L (73-393)
== END | disposition home or self-care (01) ==
LOC: C.LABBC 12:12
PROVIDERS: ATTEND Physician Assistant Medical
DX: R10.11 Right upper quadrant pain (principal)

== ENCOUNTER → 2018-03-18 | Outpatient (CLI) | payer OTHER ==
--- NOTE | 2018-03-19 05:56 | PAP/PSG TECHNICIAN REPORT ---
[facility] Telecommunications Technician Polysomnogram Report Study name: None Report date: 03/19/2018 Study date: 03/18/2018 Referring Physician: Emely Paniagua PA-C Name: DAMARISHAZELMICHAELIS ANGELINA Interpreting Physician: Urbano Robbins M.D. Date of : 1940 Telecommunications Technician: Keya Arrieta [facility]. Sex: Female Age: 77 StudyType: PSG Weight: 176 lbs Height: 77 years, Height Neck Circum:14.5in. BMI: Medications: Citalopram 20mg, CoQ10 100mg, Rosuvastatin Calcium 10mg, Atenolol-Chlorthalidone 50-25 mg, Potassium Chloride ER 20 MEQ, Mag Ox 400mg, Multivitamin, Probiotic, Stool Softener Patient History Study started on room air with no ETCO2 monitoring in room #6. 77 yr old female here tonight for a diagnostic psg. She has a history of depression, EDS and witnessed apnea. Her ESS=11/24. Neck circ=14.5inches Parameters Monitored NPSG: E1-M2, E2-M1, Fp1-M2, Fp2-M1, F3-M2, F4-M2, F4-M1, C3-M2, C4-M2, C4-M1, O1-M2, O2-M2, O2-M1, T3-M2, T4-M1, P3-M2, P4-M1, CHIN1, CHIN2, HR, EKG, Legs, PFLOW, SNOR, FLOW, CFLOW, Tidal Volume, THOR, ABDO, SpO2, PLTH, CPRESS, ETCO2 Wave, ETCO2, pH Sleep Architecture Sleep Stages Time at Lights Off 11:02:49 PM STAGES Time (min.) TST (%) Time at Lights On 5:22:49 AM Wake 74.5 -- Total Recording Time (TRT) 380.00 min. N1 24.5 8 Total Sleep Period (TSP) 342.0 min. N2 155.5 51 Total Sleep Time (TST) 305.5min. N3 39.0 13 Awake Time 74.5 min. REM 86.5 28 Wake after Sleep Onset 37.5 min. Sleep Efficiency (SE) 80 % Sleep Onset Latency (ARUNA) 37.0 min. Number of Stage 1 Shifts None Awakenings 25 Stage Changes 90 Number of REM periods 4 REM 86.5 28 REM Latency 105.0 min. NREM 219.0 72 Body Position Analysis Supine Right Left Side Prone Vertical Total Sleep Time (min.) 380.0 0.0 0.0 0.00 0.0 0.0 Total Sleep Time (%) 100% 0% 0% 0 0% N/A% Total Sleep Time REM (min.) 86.5 0.0 0.0 None 0.0 0.0 Total Sleep Time NREM (min.) 219.0 0.0 0.0 None 0.0 0.0 Intermittent Wake (min.) 74.5 0.0 0.0 None 0.0 0.0 Total Sleep Period (%) 100% None None None None None Arousals Myoclonus (PLM) * Events Count Index Events Count Index Spontaneous 13 3 Events Awake (PLMW) 123 99.1 Respiratory 9 1.6 Events Asleep w/ Arousal (PLMA) 8 1.6 PLM 7 2 Events Asleep w/o Arousal (PLMS) 64 12.6 Snoring 2 0 Total Asleep 72 14.1 Total 31 6 Total 195 31 Respiratory Analysis * CA OA MA CH H RERA Total Count 2 0 0 0 24 1 26 Index 0.4 0.0 0.0 0 4.7 0 5.3 Mean Duration 13.9 0.0 0.0 0.00 19.2 12.4 18.5 Longest Duration 17.6 0.0 0.0 0.00 0.0 12.4 37.2 Respiratory Event Summary Total Supine ~Supine Right Left Prone REM NREM Apneas Count 2 2 N/A N/A N/A N/A 1 1 Index 0.4 0 N/A N/A N/A N/A 1 0 Hypopneas (4% Desat) Count 24 24 N/A N/A N/A N/A 5 19 Index 4.7 4.7 N/A N/A N/A N/A 3.5 5.2 Apneas & All Hypopneas Count 26 26 N/A N/A N/A N/A 6 20 Index 5.1 5 N/A N/A N/A N/A 4.2 5.5 Respiratory Events (Suit Maker+All Hyp+RERA) Count 26 27 N/A N/A N/A N/A 6 20 Index 5.3 5 N/A N/A N/A N/A 4.2 5.8 Respiratory Related Arousal Count 9 27 N/A N/A N/A N/A 0 8 Index 1.6 2 N/A N/A N/A N/A 0 2 Snoring Analysis Supine Right Left Prone REM NREM Total Snore duration 2.3 min Snores count 90 N/A N/A N/A 17 73 90 Snore mean duration 1.5 Sec Snores index 18 N/A N/A N/A 11.8 20.0 17.7 TST with snoring (%) 0.7% Desaturation Event Summary: Minimum %SpO2 Event Count Mean/Min/Max Duration(sec.) Desaturation Index % Time In Bed > 90 49 25.7 / 10.5 / 50.3 23.1 33.6 86 - 90 24 30.8 / 11.0 / 53.8 5.7 66.2 81 - 85 0 N/A 0.0 0.1 76 - 80 0 N/A 0.0 0.0 71 - 75 0 N/A 0.0 0.0 66 - 70 0 N/A 0.0 0.0 61 - 65 0 N/A 0.0 0.0 56 - 60 0 N/A 0.0 0.0 51 - 55 0 N/A 0.0 0.0 < 50 0 N/A 0.0 0.0 Total REM NREM Awake <50% 0.0 min. 0.0 min. 0.0 min. 0.0 min. 51 - 60% 0.0 min. 0.0 min. 0.0 min. 0.0 min. 61 - 70% 0.0 min. 0.0 min. 0.0 min. 0.0 min. 71 - 80% 0.0 min. 0.0 min. 0.0 min. 0.0 min. 81 - 90% 251.1 min. 66.4 min. 170.4 min. 14.3 min. 91 - 100% 127.3 min. 20.2 min. 48.6 min. 58.6 min. Average 90 90 90 92 Minimum SpO2 85 85 86 86 Desaturation Event Index 9.3 9.0 7.9 16.1 # Desat. Events below 89% 39 12 19 8 Time(%) with Saturation below 89% 8.2 3.3 3.9 0.9 Time(min.) with Saturation below 89% 31.0 12.5 14.8 3.6 Time (mins) REM (mins) NREM (mins) % of TST SpO2 Below 90% 39 13 N26 41.0 SpO2 Below 88% 15 0 0 2 Heart Rate Analysis Min (bpm) Max (bpm) Average (bpm) Awake 54 127 62 NREM 56 76 61 REM 57 72 65 Overall 56 76 62 Supplemental O2 Values Minimum O2 level: None Value Start Time End Time Telecommunications Technician Comments Mrs. Krause slept in the supine position. Cardiac arrhythmia and some leg movements were noted, please see print outs. No bruxism noted. Snoring was noted and scored as a 1 on a scale of 1 through 5. (0=no snoring, 5=snoring loud enough to be heard through a closed door or down the [place] way) She did not use the restroom during the night. She stated that she slept about the same as when at home. The final report will be interpreted and signed by a sleep physician. The completed physician report will then be placed in the patient medical record. Therapy (cm H2O) 0 TIB (min.) 380.0 TST (min.) 305.5 Sleep Onset (min.) 37.0 REM Onset From Sleep (min.) 105.0 Sleep Efficiency % 80 Wakefulness (%) 20 Wakefulness (min.) 74.5 NREM 1 (%) 8 NREM 1 (min.) 24.5 NREM 2 (%) 51 NREM 2 (min.) 155.5 NREM 3 (%) 13 NREM 3 (min.) 39.0 REM (%) 28 REM (min.) 86.5 # Arousals 31 Arousal Index 6 # Snore 90 Snore Index 17.7 AHI 5.1 AHI Supine 5 AHI Non-Supine N/A NREM AHI 5.5 REM AHI 4.2 RDI 5.3 # Obstructive Apnea 0 # Central Apnea 2 # Mixed Apnea 0 # Hypopneas 24 RERAs 1 Total Respiratory Events 31 Time Below SpO2 89% (min.) 27.4 Mean NREM SpO2 (%) 90 Mean REM SpO2 (%) 90 Mean Sleep SpO2 (%) 90 Min NREM SpO2 (%) 86 Min REM SpO2 (%) 85 Position Supine (min.) 380.0 Position Non-supine (min.) 0.0 LM Index Sleep 14.1 LM Index NREM 14.5 LM Index REM 13.2 Mean Heart Rate (bpm) 62 Min Heart Rate (bpm) 56
== END | disposition home or self-care (01) ==
LOC: C.NEUR 20:00
PROVIDERS: ATTEND Physician Assistant Medical
DX: G47.30 Sleep apnea, unspecified (principal)

== ENCOUNTER → 2018-06-17 | Outpatient (CLI) | payer OTHER ==
[~2018-06-17] MED LIST changes: +ROSU10TA26 PO; -ROSU10TA35 PO
[2018-06-17 13:05] LABS: BASO % 0.3 %; BASO ABS # 0.02 K/uL (0-0.2); EOS % 2.6 %; EOS ABS # 0.16 K/uL (0-0.5); HEMATOCRIT 43.8 % (37-47); HEMOGLOBIN 15.1 g/dL (12.0-16.0); IG# 0.01 K/uL (0.00-0.02); LYMPH % 31.9 %; LYMPH ABS # 1.94 K/uL (1.2-3.4); MEAN CELL VOLUME 87.6 fL (80-100); MEAN CORPUSCULAR HEMOGLOBIN 30.2 pg (25-34); MEAN CORPUSCULAR HGB CONC 34.5 g/dl (32-36); MEAN PLATELET VOLUME 9.3 fL (7.4-10.4); MONO % 7.6 %; MONO ABS # 0.46 K/uL (0.11-0.59); NEUT % 57.4 %; NEUT ABS # 3.49 K/uL (1.4-6.5); PLATELET COUNT 250 K/uL (130-400); RED CELL DISTRIBUTION WIDTH CV 13.1 % (11.5-14.5); RED CELL DISTRIBUTION WIDTH SD 41.9 fL (36.4-46.3); WHITE BLOOD COUNT 6.08 K/uL (4.8-10.8)
[2018-06-17 13:22] LABS: HEMOGLOBIN A1C 5.7 % (4.5-5.6)
[2018-06-17 14:39] LABS: ALBUMIN 3.9 gm/dl (3.4-5.0); BLOOD UREA NITROGEN 11 mg/dl (7-18); CALCIUM 9.2 mg/dl (8.5-10.1); CARBON DIOXIDE 25 mmol/L (21-32); CREATININE 0.69 mg/dl (0.60-1.20); GLUCOSE 88 mg/dl (70-99); POTASSIUM 3.3 mmol/L (3.5-5.1); SODIUM 138 mmol/L (136-145); TOTAL PROTEIN 7.5 gm/dl (6.4-8.2)
[2018-06-17 14:40] LABS: ALKALINE PHOSPHATASE 105 U/L (45-117); ALT/SGPT 41 U/L (12-78); AST/SGOT 30 U/L (15-37); CHOLESTEROL 201 mg/dl (0-200); LDL CHOLESTEROL CALCULATED 109 mg/dl
== END | disposition home or self-care (01) ==
LOC: C.LABBC 10:59
PROVIDERS: ATTEND Internal Medicine
DX: J32.9 Chronic sinusitis, unspecified (principal); F32.9 Major depressive disorder, single episode, unspecified; M19.90 Unspecified osteoarthritis, unspecified site; E78.5 Hyperlipidemia, unspecified; R73.03 Prediabetes; I10 Essential (primary) hypertension; G31.84 Mild cognitive impairment of uncertain or unknown etiology

== ENCOUNTER → 2018-06-24 | Outpatient (CLI) | payer OTHER ==
--- NOTE | 2018-06-24 13:40 | DIAGNOSTIC IMAGING REPORT ---
BRAIN WITHOUT CONTRAST HISTORY: 78 years-old Female F32.9 [id number] Mild cognitive impairment acute depression with cognitive impairment. Acutely altered mental status. COMPARISON: Brain MRI 04/30/2014 TECHNIQUE: Multiplanar multisequence MRI of the brain was obtained without the use of IV contrast. FINDINGS: There is no restricted diffusion to suggest acute or subacute infarction. Midline structures including the corpus callosum, brainstem, optic chiasm, pituitary and pineal glands appear unremarkable the sagittal T1 series. 4 mm pineal gland cyst incidentally noted. Degenerative changes of the imaged cervical spine. No cerebellar tonsillar herniation. No pathologic blooming artifact on the T2 star series. There is no acute intracranial hemorrhage, midline shift, abnormal extra axial collections, hydrocephalus or intracranial mass. Moderate degree of scattered subcentimeter T2/FLAIR hyperintensities are again seen within the subcortical, deep and periventricular white matter of the cerebral hemispheres bilaterally, not significantly changed from comparison study 04/30/2014. Mild brain atrophy. The major flow voids appear patent. Mastoid air cells are clear. Moderate mucosal thickening with air-fluid level of the left maxillary sinus suggesting acute process. Mild mucosal thickening of the ethmoid air cells and right maxillary sinus. Soft tissues and skull appear unremarkable. Prior bilateral cataract repair. IMPRESSION: 1. Mild atrophy without acute intracranial abnormality. 2. Moderate chronic microvascular ischemic changes. 3. Paranasal sinus disease includes moderate disease about the left maxillary sinus. The above report was generated using voice recognition software. It may contain grammatical, syntax or spelling errors. Electronically signed by: Henok Christianson M.D. 06/24/2018 1:39 PM Dictated Date/Time: 06/24/2018 1:33 PM
== END | disposition home or self-care (01) ==
LOC: C.MRIBC 12:56
PROVIDERS: ATTEND Internal Medicine
DX: F32.9 Major depressive disorder, single episode, unspecified (principal); G31.84 Mild cognitive impairment of uncertain or unknown etiology; I67.9 Cerebrovascular disease, unspecified; J32.0 Chronic maxillary sinusitis

== ENCOUNTER 2022-04-20 22:46 | Observation (INO) ==
[2022-04-20] MEDS ORDERED: fentaNYL citrate 100 MCG/2 ML VIAL IV STA (23:16)
[2022-04-20] MEDS ORDERED: SODIUM CHLORIDE 0.9% 1000ML 500 ML IV ONE (23:16)
[2022-04-20] MEDS ORDERED: ONDANSETRON INJ 2 MG/ML 2 ML VIAL IV STA (23:16)
[2022-04-20 23:32] LABS: Basophils # (auto) 0.01 K/uL (0-0.2); Basophils % (auto) 0.1 %; Eosinophils # (auto) 0.17 K/uL (0-0.5); Eosinophils % (auto) 1.5 %; Hematocrit (blood only) 39.4 % (37-47); Hemoglobin 13.8 g/dL (12.0-16.0); Immature Granulocytes # (auto) 0.03 K/uL (0.00-0.02); Immature Granulocytes % (auto) 0.3 %; Lymphocytes # (auto) 1.94 K/uL (1.2-3.4); Lymphocytes % (auto) 17.3 %; Mean Corpuscular Hemoglobin 32.6 pg (25-34); Mean Corpuscular Volume 93.1 fL (80-100); Mean Platelet Volume 9.2 fL (7.4-10.4); Monocytes # (auto) 1.16 K/uL (0.11-0.59); Monocytes % (auto) 10.3 %; Neutrophils # (auto) 7.92 K/uL (1.4-6.5); Neutrophils % (auto) 70.5 %; Platelet Count 198 K/uL (130-400); RDW Coefficient of Variation 13.3 % (11.5-14.5); RDW Standard Deviation 45.4 fL (36.4-46.3); Red Blood Count 4.23 M/uL (4.2-5.4); White Blood Count 11.23 K/uL (4.8-10.8)
[2022-04-20 23:53] LABS: Alanine Aminotransferase 21 U/L (7-52); Albumin Globulin Ratio 1.6 (0.9-2); Albumin Level 4.2 gm/dl (3.4-5.0); Alkaline Phosphatase 100 U/L (34-104); Anion Gap 8 (3-11); Aspartate Aminotransferase 21 U/L (13-39); BUN Creatinine Ratio 26.5 (10-20); Bilirubin,Total 0.6 mg/dl (0.2-1.0); Blood Urea Nitrogen 22 mg/dl (6-23); Calcium 9.3 mg/dl (8.5-10.1); Carbon Dioxide 25 mmol/L (21-32); Chloride 105 mmol/L (98-107); Est GFR (African American) 75.6 ml/min; Est GFR (Non-African American) 65.2 ml/min; Globulin 2.6 gm/dl (2.5-4.0); Glucose 99 mg/dl (70-99(Fasting)); Lipase 66 U/L (11-82); Potassium 3.8 mmol/L (3.5-5.1); Sodium 138 mmol/L (136-145); Total Protein 6.8 gm/dl (6.0-8.3)
[2022-04-21 00:05] LABS: Troponin I High Sensitivity 3.5 pg/ml (0-14)
[2022-04-21 00:05] LABS: iSTAT Creatinine 0.8 mg/dl (0.6-1.3); iSTAT Hemoglobin 11.9 g/dl (12.0-16.0); iSTAT Ionized Calcium 1.1 mmol/l (1.12-1.32); iSTAT Potassium 3.5 mmol/L (3.3-5.0)
--- NOTE | 2022-04-21 00:05 | Emergency Department Note ---
ED Visit Note I agree with the diagnosis and management decisions and have been personally involved in the case. CT imaging of the abdomen pelvis was performed due to severe abdominal pain. CT imaging reveals diverticulosis without evidence of acute diverticulitis. Patient was noted to have a mild elevation of the WBC and significant abdominal pain. Patient was medicated with IV Zosyn IV Tylenol and IV fentanyl. Due to the ongoing discomfort, she was evaluated by the hospitalist service for presumed diverticulitis and further management. Please see Sera Hernandez PA-C's notes for further details of the history, physical and visit. .
[2022-04-21 00:21] LABS: Appearance Urine Clear (Clear); Bilirubin Urine Negative (Negative); Blood Urine Negative (Negative); Color Urine Yellow; Glucose Urine UA Negative (Negative); Ketones Urine Negative (Negative); Leukocyte Esterase Urine Negative (Negative); Nitrite Urine Negative (Negative); Protein Urine Negative (Negative); Specific Gravity Urine 1.025 (1.000-1.030); Urobilinogen Urine Negative (Negative)
[2022-04-21] MEDS ORDERED: OPTIRAY 320 100ml IV ONE ×2 (00:22→13:10)
[2022-04-21] MEDS ORDERED: ACETAMINOPHEN 1,000 MG/100 ML VIAL IV STA (00:46)
[2022-04-21] MEDS ORDERED: PIPERACILLIN/TAZOBACTAM 4.5 GM/120 ML BAG IV ONE (00:46)
--- NOTE | 2022-04-21 00:50 | Emergency Department Note ---
History of Present Illness General Chief complaint: Abdominal Pain Stated complaint: ABDOMINAL PAIN Time Seen by Provider: 04/20/22 23:05 History of Present Illness Maximum Pain Intensity: 5 This 81-year-old with dementia and depression presents to the ER complaining of severe sudden onset of abdominal pain Location: Abdomen Quality: Severe Severity: Severe Duration: This afternoon Timing: This afternoon Context: Daughter was concerned and brought the patient in Modifying factors: better with nothing; worse with movement patient denies chest pain, dyspnea, fevers, flulike illness, blood thinners, history of ischemic bowel, prior abdominal surgeries besides ovarian cyst issues. Home Medications Medication Instructions Recorded Confirmed Type donepezil 10 mg tablet 10 mg PO HS #90 tab 02/01/21 04/21/22 Rx multivitamin 1 tab PO QAM 02/15/21 04/21/22 History spironolactone 25 mg tablet 25 mg PO DAILY #90 tab 05/23/21 04/21/22 Rx rosuvastatin 10 mg tablet 10 mg PO DAILY #90 tab 08/18/21 04/21/22 Rx potassium chloride 10 mEq 10 meq PO DAILY #90 cap 10/18/21 04/21/22 Rx capsule,extended release sertraline 100 mg tablet 150 mg PO DAILY #135 tab 10/24/21 04/21/22 Rx Focus Factor Vitamin 1 tab PO DAILY 04/20/22 04/21/22 History valacyclovir 1 gram tablet 1,000 mg PO DAILY 04/20/22 04/21/22 History atenolol 50 mg tablet 50 mg PO DAILY 04/21/22 04/21/22 History memantine 10 mg tablet 10 mg PO BID 04/21/22 04/21/22 History Allergies Allergy/AdvReac Type Severity Reaction Status Date / Time simvastatin [From Zocor] Allergy Unknown CAN'T Verified 04/20/22 23:59 REMEMBER Past Med/Surg History Medical History Abdominal pain, RUQ Carpal tunnel syndrome Cervicalgia Chronic osteoarthritis Chronic sinusitis Confusion Depression Fatigue GERD without esophagitis Hoarseness Hyperlipidemia Hypertension Hypertrophy of both inferior nasal turbinates Kidney stones Left bundle branch block Migraines Osteopenia after menopause Other and unspecified hyperlipidemia Other cervical disc displacement, mid-cervical region, unspecified level Pre-diabetes Primary osteoarthritis, unspecified hand Sensorineural hearing loss (SNHL) of both ears Sleep apnea Stricture of cervix Vertigo Surgical History Cervical vertebral fusion H/O ovarian cystectomy History of arthroplasty History of carpal tunnel surgery History of shoulder surgery History of sinus surgery S/P excision of Flannery's neuroma Status post medial meniscus repair Family History Father Emphysema lung Asthma Sinusitis Mother Stroke syndrome Brother Stroke syndrome Epilepsy Esophageal cancer Sinusitis Coronary heart disease Sister Sinusitis Breast cancer Thoracic spinal stenosis Aunt Stroke Uncle Stroke Grandmother Cancer Denies family history of Ovarian cancer Prostate cancer Myocardial infarction Lung cancer Colorectal cancer Social History Smoking Status: Never smoker Second Hand Exposure: No; Hx Alcohol Use: No Hx Substance Use: No Preferred Language: [place] Communication Ability: Effective Visual Impairment: Limited Hearing Ability: Use of Hearing Aid marital status: / Current Living Situation: Alone current occupational status: retired How many Children do You have: 3 Feels Safe at Home: Yes Childhood Exposure to Second-Hand Smoke: Yes (dad smoked in house ) caffeine: Yes (soda ) Dental Care, Regularly: Yes Physical Activity Frequency: Does not Exercise Seatbelt Use: always Sunscreen Use: Yes (sometimes ) Review of Systems A total of 10 systems reviewed and were otherwise negative Physical Exam Vital Signs Vital Signs - 24 hr 04/20/22 22:57 04/20/22 23:06 04/21/22 00:33 Temperature 36.8 C Temperature Source Temporal Artery Scan Pulse Rate 74 Respiratory Rate 18 14 Blood Pressure 116/52 L Blood Pressure [Right Arm] 131/59 L Blood Pressure Mean 73 Blood Pressure Mean [Right Arm] 83 Blood Pressure Position Sitting Blood Pressure Position [Right Arm] Lying Pulse Oximetry 97 93 97 Oxygen Delivery Method Room Air Room Air Sepsis Recent Fever Within 48 Hours No Sepsis New/Unexplained Change in Mental Status N/A Sepsis Action Taken by Nursing No Action Required VITALS: Vitals are noted on the nurse's note and reviewed by myself. Vital signs stable. GENERAL: Elderly female writhing in pain, nondiaphoretic, well-developed well- nourished. SKIN: The skin was without rashes, erythema, edema, or bruising. There is no tenting of the skin. Capillary reflex less than 2 seconds. HEAD: Normocephalic atraumatic. EARS: External auditory canals clear, EYES: Pupils equal round and reactive to light and accommodation. Conjunctivae without injection, sclerae without icterus. Extraocular movements intact. NOSE: Patent, turbinates without inflammation or discharge. MOUTH: Mucous membranes moist. Pharynx without erythema or exudate. Uvula midline. Airway patent. Tongue does not deviate. NECK: Supple without nuchal rigidity. No lymphadenopathy. No thyromegaly. Cervical spine is nontender. No JVD. HEART: Regular rate and rhythm LUNGS: Clear to auscultation bilaterally without wheezes, rales or rhonchi. No retractions or accessory muscle use. ABDOMEN: Positive bowel sounds x 4. Normal tympanic percussion. Soft, diffuse severe tenderness throughout, without masses or organomegaly. Ramírez sign negative. No guarding or rebound tenderness. No CVA tenderness MUSCULOSKELETAL: No muscle atrophy, erythema, or edema noted. NEURO: Patient was alert and oriented to person place and time. Normal sensati on to light and sharp touch. No focal neurological deficits. Course Administered Medications Discontinued Medications Fentanyl Citrate (Fentanyl Citrate 100 Mcg/2 Ml Vial) 25 mcg IV NOW STA Stop: 04/20/22 23:17 Last Admin: 04/20/22 23:33 Dose: 25 mcg Documented by: [id number] Sodium Chloride (Nss 1000ml) 500 mls @ 999 mls/hr IV .Q31M ONE Stop: 04/20/22 23:46 Last Admin: 04/20/22 23:32 Dose: 999 mls/hr Documented by: [id number] Ioversol (Optiray 320 100ml) 94 ml IV ONCE ONE Stop: 04/21/22 00:23 Last Admin: 04/21/22 00:25 Dose: 94 ml Documented by: [id number] Ondansetron HCl (Ondansetron Inj 2 Mg/Ml 2 Ml Vial) 4 mg IV NOW STA Stop: 04/20/22 23:17 Last Admin: 04/20/22 23:33 Dose: 4 mg Documented by: [id number] Medical Decision Making Medical Records Attestation: I reviewed the patient's medical records. Home Medications Current Medication List: was personally reviewed by me Laboratory Data Attestation: I reviewed the patient's lab results. Result diagrams: 04/20/22 23:20 04/20/22 23:20 Lab Results 04/20/22 04/20/22 04/20/22 Range/Units 23:20 23:20 23:20 WBC 11.23 H (4.8-10.8) K/uL RBC 4.23 (4.2-5.4) M/uL Hgb 13.8 (12.0-16.0) g/dL POC Hgb (12.0-16.0) g/dl Hct 39.4 (37-47) % POC Hct (37-47) % MCV 93.1 (80-100) fL MCH 32.6 (25-34) pg MCHC 35.0 (32-36) g/dL RDW Std Deviation 45.4 (36.4-46.3) fL RDW Coeff of Major 13.3 (11.5-14.5) % Plt Count 198 (130-400) K/uL MPV 9.2 (7.4-10.4) fL Immature Gran % (Auto) 0.3 % Neut % (Auto) 70.5 % Lymph % (Auto) 17.3 % Humphreys % (Auto) 10.3 % Eos % (Auto) 1.5 % Baso % (Auto) 0.1 % Neut # (Auto) 7.92 H (1.4-6.5) K/uL Lymph # (Auto) 1.94 (1.2-3.4) K/uL Humphreys # (Auto) 1.16 H (0.11-0.59) K/uL Eos # (Auto) 0.17 (0-0.5) K/uL Baso # (Auto) 0.01 (0-0.2) K/uL Immature Gran # (Auto) 0.03 H (0.00-0.02) K/uL POC Sodium (135-144) mmol/L Sodium 138 (136-145) mmol/L POC Potassium (3.3-5.0) mmol/L Potassium 3.8 (3.5-5.1) mmol/L POC Chloride (101-112) mmol/L Chloride 105 (98-107) mmol/L Carbon Dioxide 25 (21-32) mmol/L POC Total CO2 (24-31) mmol/L Anion Gap 8 (3-11) POC Anion Gap (16-25) mmol/L POC BUN (7-18) mg/dl BUN 22 (6-23) mg/dl Creatinine 0.83 (0.6-1.2) mg/dl POC Creatinine (0.6-1.3) mg/dl Est Cr Clr Drug Dosing Not Reportable Est GFR ( Amer) 75.6 ml/min Est GFR (Non-Af Amer) 65.2 ml/min BUN/Creatinine Ratio 26.5 H (10-20) Glucose 99 (70-99(Fasting)) mg/dl POC Glucose (other) (70-99) mg/dl Lactate 1.0 (0.4-2.0) mmol/L Calcium 9.3 (8.5-10.1) mg/dl POC Ioniz Calcium Celine (1.12-1.32) mmol/l Magnesium 2.0 (1.7-2.4) mg/dl Total Bilirubin 0.6 (0.2-1.0) mg/dl AST 21 (13-39) U/L ALT 21 (7-52) U/L Alkaline Phosphatase 100 (34-104) U/L Troponin I High Sens 3.5 (0-14) pg/ml Total Protein 6.8 (6.0-8.3) gm/dl Albumin 4.2 (3.4-5.0) gm/dl Globulin 2.6 (2.5-4.0) gm/dl Albumin/Globulin Ratio 1.6 (0.9-2) Lipase 66 (11-82) U/L Urine Color Urine Appearance (Clear) Urine pH (4.5-7.5) Ur Specific [place] (1.000-1.030) Urine Protein (Negative) Urine Glucose (UA) (Negative) Urine Ketones (Negative) Urine Blood (Negative) Urine Nitrite (Negative) Urine Bilirubin (Negative) Urine Urobilinogen (Negative) Ur Leukocyte Esterase (Negative) 04/20/22 04/20/22 Range/Units 23:20 23:51 WBC (4.8-10.8) K/uL RBC (4.2-5.4) M/uL Hgb (12.0-16.0) g/dL POC Hgb 11.9 L (12.0-16.0) g/dl Hct (37-47) % POC Hct 35 L (37-47) % MCV (80-100) fL MCH (25-34) pg MCHC (32-36) g/dL RDW Std Deviation (36.4-46.3) fL RDW Coeff of Major (11.5-14.5) % Plt Count (130-400) K/uL MPV (7.4-10.4) fL Immature Gran % (Auto) % Neut % (Auto) % Lymph % (Auto) % Humphreys % (Auto) % Eos % (Auto) % Baso % (Auto) % Neut # (Auto) (1.4-6.5) K/uL Lymph # (Auto) (1.2-3.4) K/uL Humphreys # (Auto) (0.11-0.59) K/uL Eos # (Auto) (0-0.5) K/uL Baso # (Auto) (0-0.2) K/uL Immature Gran # (Auto) (0.00-0.02) K/uL POC Sodium 141 (135-144) mmol/L Sodium (136-145) mmol/L POC Potassium 3.5 (3.3-5.0) mmol/L Potassium (3.5-5.1) mmol/L POC Chloride 106 (101-112) mmol/L Chloride (98-107) mmol/L Carbon Dioxide (21-32) mmol/L POC Total CO2 22 L (24-31) mmol/L Anion Gap (3-11) POC Anion Gap 17.0 (16-25) mmol/L POC BUN 21 H (7-18) mg/dl BUN (6-23) mg/dl Creatinine (0.6-1.2) mg/dl POC Creatinine 0.8 (0.6-1.3) mg/dl Est Cr Clr Drug Dosing Est GFR ( Amer) ml/min Est GFR (Non-Af Amer) ml/min BUN/Creatinine Ratio (10-20) Glucose (70-99(Fasting)) mg/dl POC Glucose (other) 95 (70-99) mg/dl Lactate (0.4-2.0) mmol/L Calcium (8.5-10.1) mg/dl POC Ioniz Calcium Celine 1.10 L (1.12-1.32) mmol/l Magnesium (1.7-2.4) mg/dl Total Bilirubin (0.2-1.0) mg/dl AST (13-39) U/L ALT (7-52) U/L Alkaline Phosphatase (34-104) U/L Troponin I High Sens (0-14) pg/ml Total Protein (6.0-8.3) gm/dl Albumin (3.4-5.0) gm/dl Globulin (2.5-4.0) gm/dl Albumin/Globulin Ratio (0.9-2) Lipase (11-82) U/L Urine Color Yellow Urine Appearance Clear (Clear) Urine pH 7.0 (4.5-7.5) Ur Specific [place] 1.025 (1.000-1.030) Urine Protein Negative (Negative) Urine Glucose (UA) Negative (Negative) Urine Ketones Negative (Negative) Urine Blood Negative (Negative) Urine Nitrite Negative (Negative) Urine Bilirubin Negative (Negative) Urine Urobilinogen Negative (Negative) Ur Leukocyte Esterase Negative (Negative) Imaging Data Attestation: I personally reviewed and interpreted this imaging study as follows: MDM Narrative Prior records/ancillary studies reviewed. Triage Nursing notes reviewed. Additional history obtained from family. The patient's history was concerning for abdominal pain. Differential diagnosis: Etiologies such as appendicitis, diverticulitis, PUD, biliary pathology, UTI, pancreatitis, obstruction, mesenteric ischemia, aortic pathology, infections, inflammatory bowel disease, renal colic, as well as others were entertained. Physical examination findings: As above. ER treatment provided: An order was placed for continuous cardiac monitoring. The monitor shows a rate of 60-100 with a sinus rhythm. Fluids fentanyl Zofran Tylenol Zosyn On reassessment the patient felt better. Diagnostics interpreted by me: ECG: Ordered for abdominal pain EKG: Normal sinus, left bundle branch block, no acute ST-T wave changes. Impression normal sinus rhythm with a left bundle branch block interpreted by myself I think arrhythmia is unlikely. EKG shows no interval abnormalities such as QT prolongation or WPW. There are no findings to suggest Brugada syndrome. Cardiac monitoring in the emergency department reveals no tachycardic or bradycardic dysrhythmia. Hypertrophic cardiomyopathy was considered but there are no clear historical elements pointing toward this. EKG is not suggestive. The QRS voltage is not extremely large and there are no suggestive Q waves. The labs revealed negative lactic. Mild leukocytosis Imaging studies: Preliminary Findings Only See Final Report For Complete Findings CT ABDOMEN & PELVIS With Contrast: Diverticulitis noted near the transition of the descending and sigmoid colon in the left lateral pelvis. No evidence for perforation or abscess. No evidence for bowel obstruction. The intra-abdominal solid organs are stable in appearance from the examination dated 07/15/2021. No appreciable alteration. No other significant alteration. Radiologist: Tristan Rivera MD Consultation: A consultation was placed with the hospitalist. The case was discussed and diagnostics were reviewed. The patient was evaluated in the ER for further treatment. Exam and history seem consistent with diverticulitis. Patient was in severe amount of pain. Patient will be admitted. Medicine was consulted. She is given pain meds and antibiotics. She was reassessed multiple times. Patient and family are agreeable. By the evaluation outlined above emergent etiologies such as appendicitis, PUD, biliary pathology, UTI, pancreatitis, obstruction, mesenteric ischemia, aortic pathology inflammatory bowel disease, renal colic, as well as others were deemed relatively unlikely. The pt/daughter informed about the findings as listed above. All questions were answered and pleased with the treatment. The chart was completed utilizing [employer] Speech voice recognition software. Grammatical errors, random word insertions, pronoun errors, and incomplete sentences are an occassional consequence of this system due to software limitations, ambient noise, and hardware issues. Any formal questions or c oncerns about the content, text, or information contained within the body of this dictation should be directly addressed to the physician assistant professor of philosophy for clarification. Impression & Plan Diverticulitis Discharge Plan Visit Data Chief Complaint: Abdominal Pain Stated Complaint: ABDOMINAL PAIN ED Provider: Paola Deluca ED Midlevel Provider: Teresa Hernandez Discharge Problem: Diverticulitis Patient Disposition: Admitted As Inpatient Condition: Good Forms Stand Alone Forms: My [facility] Alg Prescriptions Prescriptions: No Action donepezil 10 mg tablet 10 mg PO HS Qty: 90 RF: 3 spironolactone 25 mg tablet 25 mg PO DAILY Qty: 90 RF: 3 rosuvastatin 10 mg tablet 10 mg PO DAILY Qty: 90 RF: 3 potassium chloride 10 mEq capsule, extended release 10 meq PO DAILY Qty: 90 RF: 3 sertraline 100 mg tablet 150 mg PO DAILY Qty: 135 RF: 3 multivitamin Tablet 1 tab PO QAM RF: 0 valacyclovir 1 gram Tablet 1,000 mg PO DAILY RF: 0 Focus Factor Vitamin 1 tab PO DAILY RF: 0 atenolol 50 mg tablet 50 mg PO DAILY RF: 0 memantine 10 mg tablet 10 mg PO BID RF: 0 Referrals Referrals: Leonidas Crisostomo MD [Primary Care Provider] -
--- NOTE | 2022-04-21 01:49 | History & Physical Report ---
Date of Service April 21, 2022 Assessment & Plan (1) Diverticulitis: Plan: 81yo female with history of dementia, HTN, HLP presenting with acute LLQ abdominal pain that began 04/20/22. Patient found to have acute uncomplicated diverticulitis - no perforation/abscess. She is afebrile, HD stable. Very uncomfortable in the ER with significant abdominal tenderness. Workup otherwise significant for WBC=11.23. -Admit to medical -Keep NPO for now. Advance to clear liquids as tolerated -Zosyn 3.375gm IV q 8 hours -Morphine PRN -Zofran PRN -Gentle IV hydration with LR at 100mL/hr x 2 liters -Serial abdominal exam to assess for progression of pain or distention - reim aging if patient's clinical symptoms progress -Monitor for improvement in symptoms. Patient will be clear for discharge when pain improves, tolerating PO. She should complete 10-14 days of antibiotics Recommended for followup colonoscopy in 6-8 weeks if desired (2) Dementia: Plan: Patient with dementia. Daughter reports that she becomes confused in the hospital -Frequent orientation, ambulation as tolerated -Maintenance of sleep/wake cycle as able -Continue Aricept and Namenda -Continue Sertraline -Avoid potentially delirium inducing agents (3) Hypertension: Plan: Blood pressure adequately controlled at present. Per last PCP note, Atenolol was decreased to 25mg po daily -Continue Atenolol 25mg po daily -Continue to monitor BP (4) Hyperlipemia: Plan: Chronic. Stable -Continue Rosuvastatin 10mg po daily (5) Depression: Plan: Chronic. -Continue Sertraline (6) Sleep apnea: Plan: Chronic. No device use Plan: F/E/N - LR at 100mL/hr x 2 liters, electrolytes WNL, NPO for now - advance to clear liquids as tolerated Ppx - low risk for DVT Code - Full per discussion with patient Dispo - Admit to medical History of Present Illness Chief Complaint: abdominal pain Primary Care Provider: Leonidas Crisostomo MD Brunilda Krause is an 81yo female with history of HTN, HLP, GERD and Dementia presenting with acute uncomplicated diverticulitis. Patient developed left sided lower abdominal pain yesterday 04/20/22 which has been progressing in severity. The pain is severe, 10/10, cramping in nature. She has some associated chills but otherwise is without nausea, vomiting, diarrhea or distentions. She reports she is not passing gas. Is uncertain of when her last BM was. Patient with dementia, becomes confused when in the hospital. She presently lives alone with family close by to check on her. She had an episode of diverticulitis many years ago. In the ER patient noted to be in severe discomfort. She was provided with IV Fentanyl - still in discomfort. Afebrile, HD stable ER Course: Acetaminophen, Fentanyl 25mcg IV, Zofran 4mg, Zosyn 4.5gm, NSS x 500 Allergies Allergy/AdvReac Type Severity Reaction Status Date / Time simvastatin [From Zocor] Allergy Unknown CAN'T Verified 04/20/22 23:59 REMEMBER Home Medications Medication Instructions Recorded Confirmed Type donepezil 10 mg tablet 10 mg PO HS #90 tab 02/01/21 04/21/22 Rx multivitamin 1 tab PO QAM 02/15/21 04/21/22 History spironolactone 25 mg tablet 25 mg PO DAILY #90 tab 05/23/21 04/21/22 Rx rosuvastatin 10 mg tablet 10 mg PO DAILY #90 tab 08/18/21 04/21/22 Rx potassium chloride 10 mEq 10 meq PO DAILY #90 cap 10/18/21 04/21/22 Rx capsule,extended release sertraline 100 mg tablet 150 mg PO DAILY #135 tab 10/24/21 04/21/22 Rx Focus Factor Vitamin 1 tab PO DAILY 04/20/22 04/21/22 History valacyclovir 1 gram tablet 1,000 mg PO DAILY 04/20/22 04/21/22 History atenolol 50 mg tablet 50 mg PO DAILY 04/21/22 04/21/22 History memantine 10 mg tablet 10 mg PO BID 04/21/22 04/21/22 History Past Med/Surg History Medical History Abdominal pain, RUQ Carpal tunnel syndrome Cervicalgia Chronic osteoarthritis Chronic sinusitis Confusion Depression Fatigue GERD without esophagitis Hoarseness Hyperlipidemia Hypertension Hypertrophy of both inferior nasal turbinates Kidney stones Left bundle branch block Migraines Osteopenia after menopause Other and unspecified hyperlipidemia Other cervical disc displacement, mid-cervical region, unspecified level Pre-diabetes Primary osteoarthritis, unspecified hand Sensorineural hearing loss (SNHL) of both ears Sleep apnea Stricture of cervix Vertigo Surgical History Cervical vertebral fusion H/O ovarian cystectomy History of arthroplasty History of carpal tunnel surgery History of shoulder surgery History of sinus surgery S/P excision of Flannery's neuroma Status post medial meniscus repair Family History Father Emphysema lung Asthma Sinusitis Mother Stroke syndrome Brother Stroke syndrome Epilepsy Esophageal cancer Sinusitis Coronary heart disease Sister Sinusitis Breast cancer Thoracic spinal stenosis Aunt Stroke Uncle Stroke Grandmother Cancer Denies family history of Ovarian cancer Prostate cancer Myocardial infarction Lung cancer Colorectal cancer Social History Smoking Status: Never smoker Second Hand Exposure: No; Hx Alcohol Use: No Hx Substance Use: No Preferred Language: Malay Communication Ability: Effective Visual Impairment: Limited Hearing Ability: Use of Hearing Aid marital status: / Current Living Situation: Alone current occupational status: retired How many Children do You have: 3 Feels Safe at Home: Yes Childhood Exposure to Second-Hand Smoke: Yes (dad smoked in house ) caffeine: Yes (soda ) Dental Care, Regularly: Yes Physical Activity Frequency: Does not Exercise Seatbelt Use: always Sunscreen Use: Yes (sometimes ) Review of Systems Review of Systems: All systems reviewed & are unremarkable except as noted in HPI & below Physical Exam Physical Exam: General: patient resting comfortably, NAD, non-toxic in appearance, AA&O to person and location. Provides adequate history Skin: warm, dry, intact, no rashes or lesions HEENT: NC/AT, PERRL, EOMI, anicteric sclera, conjunctiva without injection, external ear normal to inspection and nontender, nares patent, moist mucus membranes, dentition intact, no oropharyngeal lesions, neck supple, trachea midline, no LAD, no thyromegaly, no JVD Heart: +S1/S2, regular, no m/r/g Lungs: equal air entry bilaterally, no rales/rhonchi/wheezes Abd: +BS, soft, mildly distended - very tender to palpation in LLQ with voluntary guarding, no rebound tenderness Ext: warm, 2+ pulses in UE/LE bilaterally, no clubbing/cyanosis or edema Neuro: nonfocal, patient AA&O x 3, speech intact, no facial droop, moving all extremities on command with equal strength 5/5 Results & Data Results & Data ([facility]) Vital Signs (Past 12 Hours) Vital Signs Temp Pulse Resp BP BP Pulse Ox 04/21/22 00:33 14 131/59 L 97 04/20/22 23:06 93 04/20/22 22:57 36.8 C 74 18 116/52 L 97 Laboratory Results Laboratory Results WBC 11.23 K/uL (4.8-10.8) H 04/20/22 23:20 RBC 4.23 M/uL (4.2-5.4) 04/20/22 23:20 Hgb 13.8 g/dL (12.0-16.0) 04/20/22 23:20 POC Hgb 11.9 g/dl (12.0-16.0) L 04/20/22 23:51 Hct 39.4 % (37-47) 04/20/22 23:20 POC Hct 35 % (37-47) L 04/20/22 23:51 MCV 93.1 fL (80-100) 04/20/22 23:20 MCH 32.6 pg (25-34) 04/20/22 23:20 MCHC 35.0 g/dL (32-36) 04/20/22 23:20 RDW Std Deviation 45.4 fL (36.4-46.3) 04/20/22 23:20 RDW Coeff of Major 13.3 % (11.5-14.5) 04/20/22 23:20 Plt Count 198 K/uL (130-400) 04/20/22 23:20 MPV 9.2 fL (7.4-10.4) 04/20/22 23:20 Immature Gran % (Auto) 0.3 % 04/20/22 23:20 Neut % (Auto) 70.5 % 04/20/22 23:20 Lymph % (Auto) 17.3 % 04/20/22 23:20 [place] % (Auto) 10.3 % 04/20/22 23:20 Eos % (Auto) 1.5 % 04/20/22 23:20 Baso % (Auto) 0.1 % 04/20/22 23:20 Neut # (Auto) 7.92 K/uL (1.4-6.5) H 04/20/22 23:20 Lymph # (Auto) 1.94 K/uL (1.2-3.4) 04/20/22 23:20 [place]ry # (Auto) 1.16 K/uL (0.11-0.59) H 04/20/22 23:20 Eos # (Auto) 0.17 K/uL (0-0.5) 04/20/22 23:20 Baso # (Auto) 0.01 K/uL (0-0.2) 04/20/22 23:20 Immature Gran # (Auto) 0.03 K/uL (0.00-0.02) H 04/20/22 23:20 POC Sodium 141 mmol/L (135-144) 04/20/22 23:51 Sodium 138 mmol/L (136-145) 04/20/22 23:20 POC Potassium 3.5 mmol/L (3.3-5.0) 04/20/22 23:51 Potassium 3.8 mmol/L (3.5-5.1) 04/20/22 23:20 POC Chloride 106 mmol/L (101-112) 04/20/22 23:51 Chloride 105 mmol/L (98-107) 04/20/22 23:20 Carbon Dioxide 25 mmol/L (21-32) 04/20/22 23:20 POC Total CO2 22 mmol/L (24-31) L 04/20/22 23:51 Anion Gap 8 (3-11) 04/20/22 23:20 POC Anion Gap 17.0 mmol/L (16-25) 04/20/22 23:51 POC BUN 21 mg/dl (7-18) H 04/20/22 23:51 BUN 22 mg/dl (6-23) 04/20/22 23:20 Creatinine 0.83 mg/dl (0.6-1.2) 04/20/22 23:20 POC Creatinine 0.8 mg/dl (0.6-1.3) 04/20/22 23:51 Est Cr Clr Drug Dosing Not Reportable 04/20/22 23:20 Est GFR ( Amer) 75.6 ml/min 04/20/22 23:20 Est GFR (Non-Af Amer) 65.2 ml/min 04/20/22 23:20 BUN/Creatinine Ratio 26.5 (10-20) H 04/20/22 23:20 Glucose 99 mg/dl (70-99(Fasting)) 04/20/22 23:20 POC Glucose (other) 95 mg/dl (70-99) 04/20/22 23:51 Lactate 1.0 mmol/L (0.4-2.0) 04/20/22 23:20 Calcium 9.3 mg/dl (8.5-10.1) 04/20/22 23:20 POC Ioniz Calcium Celine 1.10 mmol/l (1.12-1.32) L 04/20/22 23:51 Magnesium 2.0 mg/dl (1.7-2.4) 04/20/22 23:20 Total Bilirubin 0.6 mg/dl (0.2-1.0) 04/20/22 23:20 AST 21 U/L (13-39) 04/20/22 23:20 ALT 21 U/L (7-52) 04/20/22 23:20 Alkaline Phosphatase 100 U/L (34-104) 04/20/22 23:20 Troponin I High Sens 3.5 pg/ml (0-14) 04/20/22 23:20 Total Protein 6.8 gm/dl (6.0-8.3) 04/20/22 23:20 Albumin 4.2 gm/dl (3.4-5.0) 04/20/22 23:20 Globulin 2.6 gm/dl (2.5-4.0) 04/20/22 23:20 Albumin/Globulin Ratio 1.6 (0.9-2) 04/20/22 23:20 Lipase 66 U/L (11-82) 04/20/22 23:20 Urine Color Yellow 04/20/22 23:20 Urine Appearance Clear (Clear) 04/20/22 23:20 Urine pH 7.0 (4.5-7.5) 04/20/22 23:20 Ur Specific [place] 1.025 (1.000-1.030) 04/20/22 23:20 Urine Protein Negative (Negative) 04/20/22 23:20 Urine Glucose (UA) Negative (Negative) 04/20/22 23:20 Urine Ketones Negative (Negative) 04/20/22 23:20 Urine Blood Negative (Negative) 04/20/22 23:20 Urine Nitrite Negative (Negative) 04/20/22 23:20 Urine Bilirubin Negative (Negative) 04/20/22 23:20 Urine Urobilinogen Negative (Negative) 04/20/22 23:20 Ur Leukocyte Esterase Negative (Negative) 04/20/22 23:20 SARS-CoV-2, RNA, NAAT NEGATIVE (NEGATIVE) 04/21/[address] Abdomen and Pelvis with Contrast: Per STAT rad - diverticulitis noted near the transition of the descending and sigmoid colon in the left lateral pelvis. No evidence for perforation or abscess. No evidence for bowel obstruction. The intra-abdominal solid organs are stable in appearance from the examination dated 07/15/21. No appreciable alteration. No other significant alteration. PG Care Time/CCT Total # of Minutes Spent Total Time Spent with Patient: Total time spent is greater than 50% in coordination of care (as documented) at patient's floor/unit and/or counseling patient: Coding Level of Care Code 04684 Initial Inpt Care Lvl 3 Diagnoses Diverticulitis K57.92 Hyperlipemia E78.5 Dementia F03.90 Dementia type: unspecified type Dementia behavioral disturbance: without behavioral disturbance Hypertension I10 Hypertension type: essential hypertension Sleep apnea G47.33 Sleep apnea type: obstructive Depression F32.9 Depression Type: reactive depression (1) Dementia Dementia type: unspecified type Dementia behavioral disturbance: without behavioral disturbance Qualified Code(s): F03.90 - Unspecified dementia without behavioral disturbance (2) Hypertension Hypertension type: essential hypertension Qualified Code(s): I10 - Essential (primary) hypertension (3) Sleep apnea Sleep apnea type: obstructive Qualified Code(s): G47.33 - Obstructive sleep apnea (adult) (pediatric) (4) Depression Depression Type: reactive depression Qualified Code(s): F32.9 - Major depressive disorder, single episode, unspecified
[2022-04-21] MEDS ORDERED: LACTATED RINGER'S 1,000 ML IV SCH (03:50)
[2022-04-21] MEDS ORDERED: MoRPHine SULFATE 2 MG/ML CARP IV PRN ×3 (03:50→12:43)
[2022-04-21] MEDS: PIPERACILLIN/TAZOBACTAM 3.375 GM in DEXTROSE 5% 100 ML IV SCH ×3 (06:57→16:54)
--- NOTE | 2022-04-21 07:41 | CT Scan Report ---
CT abd pelvis IV con only CLINICAL HISTORY: Left-sided lower abdominal pain and nausea COMPARISON STUDY: 07/15/2021 CT DOSE: 628.32 mGy.cm TECHNIQUE: Standard CT of the Abdomen and Pelvis was performed with IV contrast. A dose lowering annie hnique was utilized adhering to the principles of ALARA. Contrast Volume: Optiray 320, 94 ml. The patient did not receive oral contrast. FINDINGS: Lung base: The lung bases are clear with minimal linear scarring again seen. Coronary artery calcific ation is present. Abdominal cavity: There is no evidence for abdominal mass, adenopathy or ascites. Liver: There is homogeneous attenuation of the liver parenchyma. There is no evidence for enhancing m ass lesion. Spleen: There is homogeneous attenuation of the splenic parenchyma. There is no enhancing mass lesion . Pancreas: There is homogeneous attenuation of the pancreatic parenchyma. There is no evidence for mas s lesion or peripancreatic fluid collection. Gall Bladder: The gallbladder is well distended with no evidence for intraluminal calculi, wall thick ening or pericholecystic edema. Adrenal glands: The adrenal glands are normal in size and attenuation. There is no evidence for enhan cing mass lesion. Kidneys: There is homogeneous attenuation of the renal parenchyma bilaterally. There is no evidence f or renal calculus or hydronephrosis. There is no evidence for enhancing mass. Bilateral parapelvic cy sts are again seen. Bowel: The bowel loops are normally placed within the abdomen and pelvis without evidence for dilatat ion or obstruction. There is no evidence for mass lesion. There is extensive diverticulosis of the de scending and sigmoid colon. There is acute diverticulitis of the distal descending colon with pericol onic inflammatory changes present. There is no evidence for perforation or abscess. There is no evide nce for free air. Bladder: The bladder is within normal limits with no evidence for focal mass, calculus or diverticulu m. : There is no evidence for pelvic mass or adenopathy. There is no evidence for pelvic ascites. Vasculature: There is no evidence for aneurysmal dilatation of the abdominal aorta. Atherosclerotic c alcification is present. Osseous structures: There is no acute osseous pathology. Degenerative changes are seen. IMPRESSION: 1. Extensive diverticulosis of the descending and sigmoid colon with mild acute diverticulitis of the distal descending colon. No evidence for perforation or abscess. ACT 112: Negative or not required by law. Electronically signed by: Carlo Driver M.D. 04/21/2022 7:39 AM
--- NOTE | 2022-04-21 09:30 | Surgery Consultation ---
Date of Consultation April 21, 2022 Assessment & Plan (1) Diverticulitis: Certainly no urgent indication for surgical intervention. CT scan reviewed. Appears to be relatively mild inflammation. We will keep her n.p.o. and IV antibiotics. We will follow along. She is a poor historian does not recall her last colonoscopy was. Could consider colonoscopy in 6 to 8 weeks after resolution. (2) Dementia: (3) Hypertension: History of Present Illness Attending Physician: Desire Jones MD History of Present Illness Brunilda is a very pleasant 81-year-old lady. She states that she has had left lower quadrant abdominal pain since yesterday. She presented to the hospital and work-up has revealed acute diverticulitis. She does not recall ever having this before. Allergies Allergy/AdvReac Type Severity Reaction Status Date / Time simvastatin [From Zocor] Allergy Unknown CAN'T Verified 04/20/22 23:59 REMEMBER Home Medications Medication Instructions Recorded Confirmed Type donepezil 10 mg tablet 10 mg PO HS #90 tab 02/01/21 04/21/22 Rx multivitamin 1 tab PO QAM 02/15/21 04/21/22 History spironolactone 25 mg tablet 25 mg PO DAILY #90 tab 05/23/21 04/21/22 Rx rosuvastatin 10 mg tablet 10 mg PO DAILY #90 tab 08/18/21 04/21/22 Rx potassium chloride 10 mEq 10 meq PO DAILY #90 cap 10/18/21 04/21/22 Rx capsule,extended release sertraline 100 mg tablet 150 mg PO DAILY #135 tab 10/24/21 04/21/22 Rx Focus Factor Vitamin 1 tab PO DAILY 04/20/22 04/21/22 History valacyclovir 1 gram tablet 1,000 mg PO DAILY 04/20/22 04/21/22 History atenolol 50 mg tablet 50 mg PO DAILY 04/21/22 04/21/22 History memantine 10 mg tablet 10 mg PO BID 04/21/22 04/21/22 History Patient History Medical History Abdominal pain, RUQ Carpal tunnel syndrome Cervicalgia Chronic osteoarthritis Chronic sinusitis Confusion Depression Fatigue GERD without esophagitis Hoarseness Hyperlipidemia Hypertension Hypertrophy of both inferior nasal turbinates Kidney stones Left bundle branch block Migraines Osteopenia after menopause Other and unspecified hyperlipidemia Other cervical disc displacement, mid-cervical region, unspecified level Pre-diabetes Primary osteoarthritis, unspecified hand Sensorineural hearing loss (SNHL) of both ears Sleep apnea Stricture of cervix Vertigo Surgical History Cervical vertebral fusion H/O ovarian cystectomy History of arthroplasty History of carpal tunnel surgery History of shoulder surgery History of sinus surgery S/P excision of Flannery's neuroma Status post medial meniscus repair Family History Father Emphysema lung Asthma Sinusitis Mother Stroke syndrome Brother Stroke syndrome Epilepsy Esophageal cancer Sinusitis Coronary heart disease Sister Sinusitis Breast cancer Thoracic spinal stenosis Aunt Stroke Uncle Stroke Grandmother Cancer Denies family history of Ovarian cancer Prostate cancer Myocardial infarction Lung cancer Colorectal cancer Social History Smoking Status: Never smoker Second Hand Exposure: No; Hx Alcohol Use: No Hx Substance Use: No Preferred Language: [place] Citizen Communication Ability: Effective Visual Impairment: Limited Hearing Ability: Use of Hearing Aid 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 marital status: / Current Living Situation: Alone current occupational status: retired How many Children do You have: 3 Feels Safe at Home: Yes Childhood Exposure to Second-Hand Smoke: Yes (dad smoked in house ) caffeine: Yes (soda ) Dental Care, Regularly: Yes Physical Activity Frequency: Does not Exercise Seatbelt Use: always Sunscreen Use: Yes (sometimes ) Review of Systems Review of Systems: All systems reviewed & are unremarkable except as noted in HPI & below Physical Exam Constitutional: WD/WN, vitals as above no acute distress and not ill appearing Eyes: PERRL, conjunctivae normal, anicteric sclerae EOM intact bilaterally ENMT: external ear and nose normal, oropharynx normal Ears: no hearing impairment Neck: trachea midline, no thyromegaly Respiratory: normal respiratory effort; no respiratory distress and does not use accessory muscles Cardiovascular: Rate/Rhythm: regular rate and regular rhythm Gastrointestinal (Abdomen): Soft. Positive left lower quadrant tenderness. Positive guarding. Mild suprapubic tenderness. No peritonitis. Skin: no rashes, warm and dry Psychiatric: Orientation: alert, oriented x 3 and cooperative Results & Data ([facility]) Vital Signs (Past 12 Hours) Vital Signs Temp Pulse Pulse Resp BP BP Pulse Ox 04/21/22 08:00 72 20 122/66 98 04/21/22 07:00 36.8 C 63 16 101/56 L 93 04/21/22 06:00 101/56 L 04/21/22 04:00 128/76 04/21/22 03:50 72 16 120/72 92 04/21/22 02:00 123/51 L 04/21/22 00:33 14 131/59 L 97 04/20/22 23:06 93 04/20/22 22:57 36.8 C 74 18 116/52 L 97 PG Care Time/CCT Total # of Minutes Spent Total Time Spent with Patient: Total time spent is greater than 50% in coordination of care (as documented) at patient's floor/unit and/or counseling patient: Coding Level of Care Code 20678 Initial Inpt Care Lvl 3 Diagnoses Diverticulitis K57.92 Dementia F03.90 Dementia type: unspecified type Dementia behavioral disturbance: without behavioral disturbance Hypertension I10 Hypertension type: essential hypertension (1) Dementia Dementia type: unspecified type Dementia behavioral disturbance: without behavioral disturbance Qualified Code(s): F03.90 - Unspecified dementia without behavioral disturbance (2) Hypertension Hypertension type: essential hypertension Qualified Code(s): I10 - Essential (primary) hypertension
[2022-04-21] MEDS: ONDANSETRON INJ 2 MG/ML 2 ML VIAL IV PRN (10:39)
[2022-04-21] MEDS: SERTRALINE HCL 50 MG TABLET PO SCH (11:29)
[2022-04-21] MEDS: ROSUVASTATIN CALCIUM 10 MG TAB PO SCH (11:29)
[2022-04-21] MEDS: ATENOLOL 25 MG TABLET PO SCH (11:29)
[2022-04-21] MEDS: valACYclovir HCL 500 MG TABLET PO SCH (11:32)
[2022-04-21] MEDS: MEMANTINE HCL 10 MG TAB PO SCH ×2 (11:32→20:16)
--- NOTE | 2022-04-21 12:10 | History & Physical Bridge Note ---
Date of Service April 21, 2022 History & Physical Bridge Note I have examined the patient, reviewed the History & Physical and in the interval since the performance of the History & Physical I have noted the following changes of clinical significance: no changes noted Patient seen in ER B pod room 5 Patient stated had been feeling improved compared to admission regarding pain, however for some reason diet was advanced to clear liquids. Patient without much appetite but decided to eat jello x 2 attempted broth and developed worsened LLQ pain. She states not as severe as the pain that brought her in but discussed NPO at least 24 hours/until pain improving. Just got dose of morphine and stated no need for additional pain medication at this time. Passed some gas but no BM. Given dose zofran earlier for nausea but no nausea currently. General surgery on consult/following. Significant tenderness LLQ on exam, generalized tenderness. No guarding/rigidity. Placed back to NPO, discussed with nursing staff. Will continue supportive care/IVF/Zosyn/pain control/antiemetics and monitor status. To alert of any worsening abdominal pain but do not suspect need for repeat CTAP at this time.
[2022-04-21] MEDS ORDERED: MoRPHine SULFATE 2 MG/ML CARP IV ONE (12:39)
[2022-04-21] MEDS ORDERED: MoRPHine SULFATE 2 MG/ML CARP ONE (12:44)
[2022-04-21 12:59] LABS: Hematocrit (blood only) 38.6 % (37-47); Hemoglobin 13.1 g/dL (12.0-16.0); Mean Corpuscular Hemoglobin 31.1 pg (25-34); Mean Corpuscular Hgb Conc 33.9 g/dL (32-36); Mean Corpuscular Volume 91.7 fL (80-100); Mean Platelet Volume 9.2 fL (7.4-10.4); Platelet Count 193 K/uL (130-400); RDW Coefficient of Variation 13.5 % (11.5-14.5); RDW Standard Deviation 44.6 fL (36.4-46.3); Red Blood Count 4.21 M/uL (4.2-5.4); White Blood Count 8.98 K/uL (4.8-10.8)
[2022-04-21 13:17] LABS: BUN Creatinine Ratio 19.3 (10-20); Calcium 8.8 mg/dl (8.5-10.1); Creatinine Clr Calc Pharmacy 54.3 ml/min; Est GFR (African American) 75.6 ml/min; Est GFR (Non-African American) 65.2 ml/min; Magnesium 1.9 mg/dl (1.7-2.4); Potassium 3.8 mmol/L (3.5-5.1)
--- NOTE | 2022-04-21 13:31 | CT Scan Report ---
CT OF THE ABDOMEN AND PELVIS WITH CONTRAST CLINICAL HISTORY: worsening abdominal pain COMPARISON STUDY: CT of the abdomen and pelvis April 21, 2022 at 12:22 am. TECHNIQUE: Following IV administration of 94 mL of Optiray, axial images of the abdomen and pelvis we re obtained from the lung bases to the proximal femurs. Images were reviewed in the axial, sagittal, and coronal planes. IV contrast was administered without complication. Automated exposure control wa s utilized for the study. A dose lowering technique was utilized adhering to the principles of ALARA . CT DOSE: 661.36 mGy.cm FINDINGS: Lung bases are unremarkable. Small hiatal hernia is present. No pneumatosis, free air or po rtal venous gas is present. Liver, spleen, adrenal glands and pancreas are unremarkable. There are bi lateral renal parapelvic cysts. There is no hydronephrosis. There is contrast within the bladder from recent contrast-enhanced CT. A few small right renal calculi measure up to 2 mm. There are no ureter al calculi. There is moderate renal cortical thinning. No evidence for a bowel obstruction. Extensive colonic diverticulosis is noted. There is an inflamed diverticulum of the mid descending colon with moderate inflammation and mild colonic wall thickening. Moderate adjacent inflammation is unchanged. The appearance is unchanged since prior CT. No additional sites of bowel wall thickening are noted. N o acute fracture within the visualized skeletal structures. Major vasculature is patent. There is mod erate plaque of the abdominal aorta. IMPRESSION: Acute diverticulitis of the descending colon, similar to prior exam. No free air or absc ess. ACT 112: Negative or not required by law. Electronically signed by: Dg Lacy M.D. 04/21/2022 1:30 PM
[2022-04-21] MEDS ORDERED: MAGNESIUM SULFATE / D5W 1 GM/100 ML BAG IV ONE (14:35)
[2022-04-21] MEDS: POTASSIUM CHLORIDE 10 MEQ in LACTATED RINGER'S 1,000 ML IV SCH (17:09)
[2022-04-21] MEDS: DONEPEZIL HCL 10 MG TAB PO SCH (20:16)
[2022-04-21] MEDS: ACETAMINOPHEN 1000 MG/100 ML IV IV PRN (20:22)
[2022-04-22] MEDS: PIPERACILLIN/TAZOBACTAM 3.375 GM in DEXTROSE 5% 100 ML IV SCH ×3 (01:34→17:32)
[2022-04-22] MEDS: POTASSIUM CHLORIDE 10 MEQ in LACTATED RINGER'S 1,000 ML IV SCH ×2 (05:13→19:42)
--- NOTE | 2022-04-22 06:08 | Surgery Progress Note ---
Date of Service April 22, 2022 Assessment & Plan (1) Diverticulitis: Plan: Patient has been admitted by the medical service. Continue analgesics Continue antiemetics Continue broad-spectrum antibiotics in the form of Zosyn Continue n.p.o. status until further improvement of abdominal pain noted Continue hydration measures with IV fluids until oral intake can be advanced Check a.m. labs when available As above. warper tender with palpation. Would continue n.p.o. with ice chips another 24 hours. Highly doubt surgical intervention at this time will be necessary. We will continue to follow until lower quadrant pain improves. Admission and Anticipated Discharge Date Admission Date: April 21, 2022 Subjective Patient is resting in bed. She does note some continued abdominal pain but overall feels this is improved since admission. She denies any nausea or vomiting. No fevers, shakes, or chills. She has not passed any flatus or not had a bowel movement since admission. Physical Exam Gastrointestinal (Abdomen): Abdomen is soft and nondistended. Bowel sounds are hypoactive. Patient does have pain with palpation which is greatest in the left lower quadrant. Results & Data ([facility]) Vital Signs (Past 12 Hours) Vital Signs Temp Pulse Resp BP Pulse Ox 04/22/22 00:27 36.5 C 64 16 120/60 92 PG Care Time/CCT Total # of Minutes Spent Total Time Spent with Patient: Total time spent is greater than 50% in coordination of care (as documented) at patient's floor/unit and/or counseling patient: Coding Level of Care Code 55803 Subseq Hosp Care Lvl 2 Diagnoses Diverticulitis K57.92
[2022-04-22 07:26] LABS: Basophils # (auto) 0.02 K/uL (0-0.2); Basophils % (auto) 0.3 %; Eosinophils # (auto) 0.12 K/uL (0-0.5); Eosinophils % (auto) 1.8 %; Hematocrit (blood only) 38.1 % (37-47); Hemoglobin 12.9 g/dL (12.0-16.0); Immature Granulocytes # (auto) 0.02 K/uL (0.00-0.02); Immature Granulocytes % (auto) 0.3 %; Lymphocytes # (auto) 0.73 K/uL (1.2-3.4); Lymphocytes % (auto) 11.2 %; Mean Corpuscular Hemoglobin 31.6 pg (25-34); Mean Corpuscular Hgb Conc 33.9 g/dL (32-36); Mean Corpuscular Volume 93.4 fL (80-100); Mean Platelet Volume 9.2 fL (7.4-10.4); Monocytes # (auto) 0.56 K/uL (0.11-0.59); Monocytes % (auto) 8.6 %; Neutrophils # (auto) 5.09 K/uL (1.4-6.5); Neutrophils % (auto) 77.8 %; Platelet Count 182 K/uL (130-400); RDW Coefficient of Variation 13.4 % (11.5-14.5); RDW Standard Deviation 46.1 fL (36.4-46.3); Red Blood Count 4.08 M/uL (4.2-5.4); White Blood Count 6.54 K/uL (4.8-10.8)
[2022-04-22] MEDS: ACETAMINOPHEN 1000 MG/100 ML IV IV PRN (07:38)
[2022-04-22 07:43] LABS: Albumin Globulin Ratio 1.4 (0.9-2); Albumin Level 3.5 gm/dl (3.4-5.0); BUN Creatinine Ratio 14.3 (10-20); Bilirubin,Total 0.8 mg/dl (0.2-1.0); Calcium 8.4 mg/dl (8.5-10.1); Creatinine Clr Calc Pharmacy 58.5 ml/min; Est GFR (African American) 82.8 ml/min; Est GFR (Non-African American) 71.4 ml/min; Globulin 2.5 gm/dl (2.5-4.0); Magnesium 2.1 mg/dl (1.7-2.4); Phosphorus 3.6 mg/dl (2.5-4.9); Potassium 3.6 mmol/L (3.5-5.1)
[2022-04-22 07:54] LABS: Vitamin D, 25 Hydrox 29.5 ng/ml (30-100)
--- NOTE | 2022-04-22 08:11 | Hospitalist Progress Note ---
Date of Service April 22, 2022 Assessment & Plan (1) Diverticulitis: Plan: 81yo female with history of dementia, HTN, HLP presenting with acute LLQ abdominal pain that began 04/20/22 with evidence for acute diverticulitis of distal descending colon w/o abscess or perforation WBC 11k, given 125mcg fentanyl on admit for pain * Patient given clear liquid diet for some unknown reason 04/21 morning after admitted with increased discomfort and screaming out in pain and repeat imaging completed, no significant change/no abscess/fluid collection -- mild acute diverticulitis distal descending colon Continue Zosyn , WBC 6.5k and has remained afebrile -- Plan to complete 10-14 days, transition to Augmentin at discharge Continue NPO for now this morning - pain significantly improved, passing gas, no BM - Will plan to try clear liquids this afternoon given significant improvement but continue clears overnight, full liquid in AM if continued improvement - Continue LR, but decreased to 75cc/hr and added 10meq Kcl, can further decrease as tolerating PO -IV mag given to keep ~2, mag 2.1 on AM labs Pain control --IV Tylenol added and has been significantly helped -- Morphine available for breakthrough but limiting opiates given age and Tyle nol seems to be effective Antiemetics prn PT/OT consulted given lives alone (daughter close by) Patient with history of dementia and if able to provide daughter with info for diet could consider home with full liquid for a day or two then advance to low fiber rather than more quickly advance prior to discharge Rec f/u colonoscopy 6-8 wks after resolution -- discussed with daughter and can discuss in follow up with PCP (2) Dementia: Plan: Patient with dementia. Daughter reports that she becomes confused in the hospital Frequent orientation, ambulation as tolerated. Maintain sleep/wake cycle Continue aricept/namenda, sertraline Appears at stable baseline per daughter (3) Hypertension: Plan: Blood pressure adequately controlled at present. Per last PCP note, Atenolol was decreased to 25mg po daily -Continue Atenolol 25mg po daily -- held this morning given BP on lower side yesterday, BP stable 133/65 Resume in AM as long as BP stable (4) Hyperlipemia: Plan: Chronic. Stable -Continue Rosuvastatin 10mg po daily when diet advanced (5) Depression: Plan: Chronic. -Continue Sertraline (6) Sleep apnea: Plan: Chronic. No device use Plan: DVT Prophylaxis -- SCDs added, consider adding chemoproph pending time in hospital PT/OT consulted as patient lives alone, however does have daughter that lives very close Admission and Anticipated Discharge Date Admission Date: April 21, 2022 Supervising Physician Co-Signing Physician Notes PA Supervision Note: I did not personally see or examine the patient today, but I verified all menjivar points of EMY Dawsno's assessment and plan with the following exceptions/additions: None Subjective Patient evaluated late morning. Sitting up in chair. Pain is MUCH improved, only slightly tender/cramping to her LLQ. States about a 3-4/10 well controlled with ordered medications. Passing some gas/belly grumbling and she is hungry but states she will eat whatever/whenever we give it. Initially thought she was in a fpc. Discussed keeping NPO for now but if continued pain control can consider increased. Updated daughter at ok from patient. Discussed improvement, clear liquids for tonight. She endorses her mother definitely had a c-scope in the past if not several during her life but unsure of any issues, and not due for further. Discussed c- scope after tx/resolution but can discuss with PCP and wait vs pursue vs if another episode then would push further to investigate. She is in agreement to continue full liquid diet with advancement to low fiber x 2 weeks at discharge if patient able to be advanced to that tomorrow and tolerates rather than keeping in the hospital longer. Will continue to monitor. Review of Systems Review of Systems: All systems reviewed & are unremarkable except as noted in HPI & below Physical Exam Physical Exam: General: WD/WN female sitting up in bed, NAD HEENT: head normocephalic atraumatic, mmm, trachea midline without deviation Resp: CTAB, no w/c/r 96% RA CV: bradycardic (rate 56bpm), regular, no edema GI: +BS throughout, no guarding/rigidity, slight tenderness to deep palpation LLQ no tariq MSK/Neuro: moves all extremities, no focal deficit Psych: alert to person/place (occasionally), not time, easily reoriented and baseline dementia, pleasant and cooperative Results & Data Results & Data ([facility]) Vital Signs (Past 12 Hours) Vital Signs Temp Pulse Resp BP Pulse Ox 04/22/22 07:31 36.7 C 58 L 18 133/65 96 04/22/22 00:27 36.5 C 64 16 120/60 92 Laboratory Results 04/22/22 04/22/22 04/22/22 Range/Units 06:37 06:37 06:37 WBC 6.54 (4.8-10.8) K/uL RBC 4.08 L (4.2-5.4) M/uL Hgb 12.9 (12.0-16.0) g/dL Hct 38.1 (37-47) % MCV 93.4 (80-100) fL MCH 31.6 (25-34) pg MCHC 33.9 (32-36) g/dL RDW Std Deviation 46.1 (36.4-46.3) fL RDW Coeff of Major 13.4 (11.5-14.5) % Plt Count 182 (130-400) K/uL MPV 9.2 (7.4-10.4) fL Immature Gran % (Auto) 0.3 % Neut % (Auto) 77.8 % Lymph % (Auto) 11.2 % [place] % (Auto) 8.6 % Eos % (Auto) 1.8 % Baso % (Auto) 0.3 % Neut # (Auto) 5.09 (1.4-6.5) K/uL Lymph # (Auto) 0.73 L (1.2-3.4) K/uL [place] # (Auto) 0.56 (0.11-0.59) K/uL Eos # (Auto) 0.12 (0-0.5) K/uL Baso # (Auto) 0.02 (0-0.2) K/uL Immature Gran # (Auto) 0.02 (0.00-0.02) K/uL Sodium 138 (136-145) mmol/L Potassium 3.6 (3.5-5.1) mmol/L Chloride 105 (98-107) mmol/L Carbon Dioxide 27 (21-32) mmol/L Anion Gap 6 (3-11) BUN 11 (6-23) mg/dl Creatinine 0.77 (0.6-1.2) mg/dl Est Cr Clr Drug Dosing 58.5 ml/min Est GFR ( Amer) 82.8 ml/min Est GFR (Non-Af Amer) 71.4 ml/min BUN/Creatinine Ratio 14.3 (10-20) Glucose 82 (70-99(Fasting)) mg/dl Calcium 8.4 L (8.5-10.1) mg/dl Phosphorus 3.6 (2.5-4.9) mg/dl Magnesium 2.1 (1.7-2.4) mg/dl Total Bilirubin 0.8 (0.2-1.0) mg/dl AST 16 (13-39) U/L ALT 16 (7-52) U/L Alkaline Phosphatase 76 (34-104) U/L Total Protein 6.0 (6.0-8.3) gm/dl Albumin 3.5 (3.4-5.0) gm/dl Globulin 2.5 (2.5-4.0) gm/dl Albumin/Globulin Ratio 1.4 (0.9-2) Vitamin B12 477 (180-914) pg/ml 25-OH Vitamin D Total 29.5 L (30-100) ng/ml 04/21/22 04/21/22 Range/Units 12:19 12:19 WBC 8.98 (4.8-10.8) K/uL RBC 4.21 (4.2-5.4) M/uL Hgb 13.1 (12.0-16.0) g/dL Hct 38.6 (37-47) % MCV 91.7 (80-100) fL MCH 31.1 (25-34) pg MCHC 33.9 (32-36) g/dL RDW Std Deviation 44.6 (36.4-46.3) fL RDW Coeff of Major 13.5 (11.5-14.5) % Plt Count 193 (130-400) K/uL MPV 9.2 (7.4-10.4) fL Immature Gran % (Auto) % Neut % (Auto) % Lymph % (Auto) % [place] % (Auto) % Eos % (Auto) % Baso % (Auto) % Neut # (Auto) (1.4-6.5) K/uL Lymph # (Auto) (1.2-3.4) K/uL [place] # (Auto) (0.11-0.59) K/uL Eos # (Auto) (0-0.5) K/uL Baso # (Auto) (0-0.2) K/uL Immature Gran # (Auto) (0.00-0.02) K/uL Sodium 136 (136-145) mmol/L Potassium 3.8 (3.5-5.1) mmol/L Chloride 103 (98-107) mmol/L Carbon Dioxide 27 (21-32) mmol/L Anion Gap 6 (3-11) BUN 16 (6-23) mg/dl Creatinine 0.83 (0.6-1.2) mg/dl Est Cr Clr Drug Dosing 54.3 ml/min Est GFR ( Amer) 75.6 ml/min Est GFR (Non-Af Amer) 65.2 ml/min BUN/Creatinine Ratio 19.3 (10-20) Glucose 80 (70-99(Fasting)) mg/dl Calcium 8.8 (8.5-10.1) mg/dl Phosphorus (2.5-4.9) mg/dl Magnesium 1.9 (1.7-2.4) mg/dl Total Bilirubin (0.2-1.0) mg/dl AST (13-39) U/L ALT (7-52) U/L Alkaline Phosphatase (34-104) U/L Total Protein (6.0-8.3) gm/dl Albumin (3.4-5.0) gm/dl Globulin (2.5-4.0) gm/dl Albumin/Globulin Ratio (0.9-2) Vitamin B12 (180-914) pg/ml 25-OH Vitamin D Total (30-100) ng/ml Diagnostic Findings Abdomen/Pelvis CT 04/21/22 12:43 CT OF THE ABDOMEN AND PELVIS WITH CONTRAST CLINICAL HISTORY: worsening abdominal pain COMPARISON STUDY: CT of the abdomen and pelvis April 21, 2022 at 12:22 am. TECHNIQUE: Following IV administration of 94 mL of Optiray, axial images of the abdomen and pelvis were obtained from the lung bases to the proximal femurs. Images were reviewed in the axial, sagittal, and coronal planes. IV contrast was administered without complication. Automated exposure control was utilized for the study. A dose lowering technique was utilized adhering to the principles of ALARA. CT DOSE: 661.36 mGy.cm FINDINGS: Lung bases are unremarkable. Small hiatal hernia is present. No pneumatosis, free air or portal venous gas is present. Liver, spleen, adrenal glands and pancreas are unremarkable. There are bilateral renal parapelvic cysts. There is no hydronephrosis. There is contrast within the bladder from recent contrast-enhanced CT. A few small right renal calculi measure up to 2 mm. There are no ureteral calculi. There is moderate renal cortical thinning. No evidence for a bowel obstruction. Extensive colonic diverticulosis is noted. There is an inflamed diverticulum of the mid descending colon with moderate inflammation and mild colonic wall thickening. Moderate adjacent inflammation is unchanged. The appearance is unchanged since prior CT. No additional sites of b owel wall thickening are noted. No acute fracture within the visualized skeletal structures. Major vasculature is patent. There is moderate plaque of the abdominal aorta. IMPRESSION: Acute diverticulitis of the descending colon, similar to prior exam. No free air or abscess. ACT 112: Negative or not required by law. Electronically signed by: Dg Lacy M.D. 04/21/2022 1:30 PM PG Care Time/CCT Total # of Minutes Spent Total Time Spent with Patient: Total time spent is greater than 50% in coordination of care (as documented) at patient's floor/unit and/or counseling patient: Coding Level of Care Code 63995 Subseq Hosp Care Lvl 2 Diagnoses Diverticulitis K57.92 Dementia F03.90 Dementia behavioral disturbance: without behavioral disturbance Dementia type: unspecified type Hypertension I10 Hypertension type: essential hypertension Hyperlipemia E78.5 Depression F32.9 Depression Type: reactive depression Sleep apnea G47.33 Sleep apnea type: obstructive (1) Sleep apnea Sleep apnea type: obstructive Qualified Code(s): G47.33 - Obstructive sleep apnea (adult) (pediatric) (2) Dementia Dementia behavioral disturbance: without behavioral disturbance Dementia type: unspecified type Qualified Code(s): F03.90 - Unspecified dementia without behavioral disturbance (3) Depression Depression Type: reactive depression Qualified Code(s): F32.9 - Major depressive disorder, single episode, unspecified (4) Hypertension Hypertension type: essential hypertension Qualified Code(s): I10 - Essential (primary) hypertension
[2022-04-22] MEDS: MEMANTINE HCL 10 MG TAB PO SCH ×2 (09:08→20:48)
[2022-04-22] MEDS: SERTRALINE HCL 50 MG TABLET PO SCH (09:08)
[2022-04-22] MEDS: valACYclovir HCL 500 MG TABLET PO SCH (09:08)
[2022-04-22] MEDS ORDERED: KETOROLAC TROMETHAMINE 15 MG/ML VIAL IV ONE (15:11)
[2022-04-22] MEDS: ONDANSETRON INJ 2 MG/ML 2 ML VIAL IV PRN (15:19)
[2022-04-22] MEDS ORDERED: ONDANSETRON INJ 2 MG/ML 2 ML VIAL IV STA (19:35)
[2022-04-22] MEDS: DONEPEZIL HCL 10 MG TAB PO SCH (20:47)
[2022-04-23] MEDS: PIPERACILLIN/TAZOBACTAM 3.375 GM in DEXTROSE 5% 100 ML IV SCH ×2 (01:55→09:12)
[2022-04-23] MEDS: ACETAMINOPHEN 1000 MG/100 ML IV IV PRN (04:52)
[2022-04-23 08:22] LABS: Hematocrit (blood only) 35.7 % (37-47); Hemoglobin 12.2 g/dL (12.0-16.0); Red Blood Count 3.84 M/uL (4.2-5.4)
[2022-04-23 08:23] LABS: Mean Corpuscular Hemoglobin 31.8 pg (25-34); Mean Corpuscular Hgb Conc 34.2 g/dL (32-36); Mean Platelet Volume 9.3 fL (7.4-10.4); Platelet Count 190 K/uL (130-400); RDW Coefficient of Variation 13.3 % (11.5-14.5); RDW Standard Deviation 45.3 fL (36.4-46.3)
[2022-04-23 08:42] LABS: Calcium 8.1 mg/dl (8.5-10.1); Creatinine Clr Calc Pharmacy 60.1 ml/min; Est GFR (African American) 85.4 ml/min; Est GFR (Non-African American) 73.7 ml/min; Magnesium 1.7 mg/dl (1.7-2.4); Potassium 3.4 mmol/L (3.5-5.1)
--- NOTE | 2022-04-23 08:53 | Electrocardiogram Report ---
Test Reason : Blood Pressure : / mmHG Vent. Rate : 061 BPM Atrial Rate : 061 BPM P-R Int : 188 ms QRS Dur : 126 ms QT Int : 476 ms P-R-T Axes : 076 006 081 degrees QTc Int : 479 ms Normal sinus rhythm Left bundle branch block Abnormal ECG When compared with ECG of 15-JUL-2021 15:52, No significant change was found Confirmed by Leander Malloy [id number]) on 04/21/2022 10:33:58 AM Referred By: REFERRED SELF Confirmed By:Leander Malloy
--- NOTE | 2022-04-23 10:06 | Surgery Progress Note ---
Date of Service April 23, 2022 Assessment & Plan (1) Diverticulitis: Plan: Clinically improving. Currently no indication for surgical intervention. Can slowly advance diet and discharge on antibiotics. We will sign off. Please call if any concerns or questions. (2) Confusion: Admission and Anticipated Discharge Date Admission Date: April 21, 2022 Subjective Patient seen. Pleasantly confused. Currently denying any abdominal pain. Physical Exam Eyes: PERRL, conjunctivae normal, anicteric sclerae EOM intact bilaterally ENMT: external ear and nose normal, oropharynx normal Ears: no hearing impa irment Neck: trachea midline, no thyromegaly Respiratory: normal respiratory effort; no respiratory distress and does not use accessory muscles Cardiovascular: Rate/Rhythm: regular rate and regular rhythm Gastrointestinal (Abdomen): Soft. Nontender. No guarding. Improved from her initial exam. Skin: no rashes, warm and dry Psychiatric: Orientation: alert, oriented x 3 and cooperative Results & Data ([facility]) Vital Signs (Past 12 Hours) Vital Signs Temp Pulse Resp BP Pulse Ox 04/23/22 07:26 36.6 C 64 16 122/64 95 PG Care Time/CCT Total # of Minutes Spent Total Time Spent with Patient: Total time spent is greater than 50% in coordination of care (as documented) at patient's floor/unit and/or counseling patient: Coding Level of Care Code 75135 Subseq Hosp Care Lvl 2 Diagnoses Diverticulitis K57.92 Confusion R41.0
[2022-04-23] MEDS: MEMANTINE HCL 10 MG TAB PO SCH ×2 (11:19→21:28)
[2022-04-23] MEDS: SERTRALINE HCL 50 MG TABLET PO SCH (11:19)
[2022-04-23] MEDS ORDERED: POTASSIUM CHLORIDE CRTAB 20 MEQ TABCR PO STA (12:00)
--- NOTE | 2022-04-23 12:00 | Hospitalist Progress Note ---
Date of Service April 23, 2022 Assessment & Plan (1) Diverticulitis: Plan: 81yo female with history of dementia, HTN, HLP presenting with acute LLQ abdominal pain that began 04/20/22 with evidence for acute diverticulitis of distal descending colon w/o abscess or perforation WBC 11k Shortly after admission, had increased discomfort and screaming out in pain - repeat imaging completed, no significant change/no abscess/fluid collection -- mild acute diverticulitis distal descending colon Improving with bowel rest, IVFs, abx. Now tolerating clear liquids diet. Leukocytosis resolved, afebrile. Still some abdominal tenderness but overall improved. Now with frequent loose stools -check C. diff -continue IV Zosyn for now, plan to convert to po abx on dc to complete 10 day course -IVFs now dcd -continue pain control as needed-convert IV tylenol to po now that keon po. IV morphine ordered but none used since 04/22 -follow clinically -adv diet to full liquids (2) Dementia: Plan: Patient with dementia. Daughter reports that she becomes confused in the hospital Frequent orientation, ambulation as tolerated. Maintain sleep/wake cycle Continue aricept/namenda, sertraline try to avoid opioids for pain control unless really needed Appears at stable baseline per daughter (3) Hypertension: Plan: Blood pressure stable Per last PCP note, Atenolol was decreased to 25mg po daily -restart atenolol (held yesterday for low normal BPs) (4) Hyperlipemia: Plan: Chronic. Stable -restart Rosuvastatin 10mg po daily as now keon po (5) Depression: Plan: Chronic. -Continue Sertraline (6) Sleep apnea: Plan: Chronic. No device use Plan: DVT Prophylaxis -- SCDs, add Lovenox PT/OT consulted as patient lives alone, however does have daughter that lives very close Continued stay Admission and Anticipated Discharge Date Admission Date: April 21, 2022 Subjective Pt a little confused at times as per nursing. Reporting frequent diarrhea today. Tolerating clear liquids diet. Has some abdominal tenderness she reports. Denies CP, SOB. Review of Systems 2 Review of Systems: All systems reviewed & are unremarkable except as noted in HPI & below Physical Exam Constitutional: WD/WN, vitals as above Eyes: + anicteric sclerae ENMT: external ear and nose normal, oropharynx normal Neck: trachea midline, no thyromegaly Respiratory: normal respiratory effort, lungs clear to auscultation Cardiovascular: RRR, no murmur, no edema Chest (Breasts): Chest: normal inspection of chest Gastrointestinal (Abdomen): Inspection/Auscultation: abdomen normal to inspection and normal bowel sounds; abdomen not distended Percussion/Palpation: + abdomen tender (in LLQ without guarding or rebound) and abdomen soft Musculoskeletal: Extremities: extremities normal to inspection; no cyanosis and no clubbing Skin: no rashes, warm and dry Neurologic: moves all extremities and awake; no focal motor deficits Psychiatric: Orientation: alert, oriented to person and cooperative Lymphatic: no lymphedema Results & Data Results & Data ([facility]) Vital Signs (Past 12 Hours) Vital Signs Temp Pulse Resp BP Pulse Ox 04/23/22 07:26 36.6 C 64 16 122/64 95 Laboratory Results 04/23/22 04/23/22 Range/Units 07:28 07:28 WBC 5.90 (4.8-10.8) K/uL RBC 3.84 L (4.2-5.4) M/uL Hgb 12.2 (12.0-16.0) g/dL Hct 35.7 L (37-47) % MCV 93.0 (80-100) fL MCH 31.8 (25-34) pg MCHC 34.2 (32-36) g/dL RDW Std Deviation 45.3 (36.4-46.3) fL RDW Coeff of Major 13.3 (11.5-14.5) % Plt Count 190 (130-400) K/uL MPV 9.3 (7.4-10.4) fL Sodium 138 (136-145) mmol/L Potassium 3.4 L (3.5-5.1) mmol/L Chloride 106 (98-107) mmol/L Carbon Dioxide 23 (21-32) mmol/L Anion Gap 9 (3-11) BUN 9 (6-23) mg/dl Creatinine 0.75 (0.6-1.2) mg/dl Est Cr Clr Drug Dosing 60.1 ml/min Est GFR ( Amer) 85.4 ml/min Est GFR (Non-Af Amer) 73.7 ml/min BUN/Creatinine Ratio 12.0 (10-20) Glucose 79 (70-99(Fasting)) mg/dl Calcium 8.1 L (8.5-10.1) mg/dl Magnesium 1.7 (1.7-2.4) mg/dl PG Care Time/CCT Total # of Minutes Spent Total Time Spent with Patient: Total time spent is greater than 50% in coordination of care (as documented) at patient's floor/unit and/or counseling patient: Coding Level of Care Code 44801 Subseq Hosp Care Lvl 2 Diagnoses Diverticulitis K57.92 Dementia F03.90 Dementia type: unspecified type Dementia behavioral disturbance: without behavioral disturbance Hypertension I10 Hypertension type: essential hypertension Hyperlipemia E78.5 Depression F32.9 Depression Type: reactive depression Sleep apnea G47.33 Sleep apnea type: obstructive (1) Dementia Dementia type: unspecified type Dementia behavioral disturbance: without behavioral disturbance Qualified Code(s): F03.90 - Unspecified dementia without behavioral disturbance (2) Hypertension Hypertension type: essential hypertension Qualified Code(s): I10 - Essential (primary) hypertension (3) Depression Depression Type: reactive depression Qualified Code(s): F32.9 - Major depressive disorder, single episode, unspecified (4) Sleep apnea Sleep apnea type: obstructive Qualified Code(s): G47.33 - Obstructive sleep apnea (adult) (pediatric)
[2022-04-23] MEDS: valACYclovir HCL 500 MG TABLET PO SCH (12:08)
[2022-04-23] MEDS ORDERED: ATENOLOL 25 MG TABLET PO ONE (13:00)
[2022-04-23] MEDS: MAGNESIUM SULFATE / D5W 1 GM/100 ML BAG IV SCH ×2 (13:48→16:17)
[2022-04-23] MEDS: ENOXAPARIN INJ 40 MG/0.4 ML SYR SQ SCH (14:43)
[2022-04-23] MEDS ORDERED: ACETAMINOPHEN 325 MG TAB PO PRN (18:08)
[2022-04-23] MEDS: AMOXICILLIN/CLAVULANATE 875 MG TAB PO SCH (18:40)
[2022-04-23] MEDS ORDERED: MENTHOL-ZINC OXIDE 360 APPLN/120 GM TUBE EXT SCH (21:00)
[2022-04-23] MEDS: DONEPEZIL HCL 10 MG TAB PO SCH (21:28)
[2022-04-24 08:18] LABS: Basophils # (auto) 0.01 K/uL (0-0.2); Basophils % (auto) 0.2 %; Eosinophils # (auto) 0.18 K/uL (0-0.5); Eosinophils % (auto) 3.7 %; Hematocrit (blood only) 37.4 % (37-47); Hemoglobin 12.5 g/dL (12.0-16.0); Immature Granulocytes # (auto) 0.01 K/uL (0.00-0.02); Immature Granulocytes % (auto) 0.2 %; Lymphocytes # (auto) 1.19 K/uL (1.2-3.4); Lymphocytes % (auto) 24.5 %; Mean Corpuscular Hgb Conc 33.4 g/dL (32-36); Mean Corpuscular Volume 92.8 fL (80-100); Mean Platelet Volume 9.3 fL (7.4-10.4); Monocytes # (auto) 0.43 K/uL (0.11-0.59); Monocytes % (auto) 8.9 %; Neutrophils # (auto) 3.03 K/uL (1.4-6.5); Neutrophils % (auto) 62.5 %; Platelet Count 213 K/uL (130-400); RDW Coefficient of Variation 13.7 % (11.5-14.5); Red Blood Count 4.03 M/uL (4.2-5.4); White Blood Count 4.85 K/uL (4.8-10.8)
[2022-04-24] MEDS: valACYclovir HCL 500 MG TABLET PO SCH (08:41)
[2022-04-24] MEDS: AMOXICILLIN/CLAVULANATE 875 MG TAB PO SCH (08:41)
[2022-04-24] MEDS: SERTRALINE HCL 50 MG TABLET PO SCH (08:41)
[2022-04-24] MEDS: ROSUVASTATIN CALCIUM 10 MG TAB PO SCH (08:41)
[2022-04-24] MEDS: MEMANTINE HCL 10 MG TAB PO SCH (08:41)
[2022-04-24] MEDS: ATENOLOL 25 MG TABLET PO SCH (08:42)
[2022-04-24] MEDS ORDERED: CHOLECALCIFEROL 1,000 UNITS 25 MCG TAB PO SCH (09:00)
[2022-04-24 09:05] LABS: Albumin Globulin Ratio 1.3 (0.9-2); Albumin Level 3.5 gm/dl (3.4-5.0); BUN Creatinine Ratio 7.5 (10-20); Bilirubin,Total 0.4 mg/dl (0.2-1.0); Calcium 8.7 mg/dl (8.5-10.1); Creatinine Clr Calc Pharmacy 67.3 ml/min; Est GFR (African American) 94.2 ml/min; Est GFR (Non-African American) 81.3 ml/min; Globulin 2.6 gm/dl (2.5-4.0); Potassium 3.5 mmol/L (3.5-5.1); Total Protein 6.1 gm/dl (6.0-8.3)
[2022-04-24] MEDS: ENOXAPARIN INJ 40 MG/0.4 ML SYR SQ SCH (12:59)
--- NOTE | 2022-04-24 15:06 | Discharge Summary ---
Date of Service April 24, 2022 Admission HPI Per Admitting Provider Brunilda Krause is an 81yo female with history of HTN, HLP, GERD and Dementia presenting with acute uncomplicated diverticulitis. Patient developed left sided lower abdominal pain yesterday 04/20/22 which has been progressing in severity. The pain is severe, 10/10, cramping in nature. She has some associated chills but otherwise is without nausea, vomiting, diarrhea or distentions. She reports she is not passing gas. Is uncertain of when her last BM was. Patient with dementia, becomes confused when in the hospital. She presently lives alone with family close by to check on her. She had an episode of diverticulitis many years ago. In the ER patient noted to be in severe discomfort. She was provided with IV Fentanyl - still in discomfort. Afebrile, HD stable ER Course: Acetaminophen, Fentanyl 25mcg IV, Zofran 4mg, Zosyn 4.5gm, NSS x 500 Discharge Data Allergies Allergy/AdvReac Type Severity Reaction Status Date / Time simvastatin [From Zocor] Allergy Unknown CAN'T Verified 04/20/22 23:59 REMEMBER Consultations 04/21/22 00:46 ED Decision to Admit Stat 04/21/22 07:53 Consult General Surgery Routine Ordered Studies 04/20/22 23:05 CT abd pelvis IV con only Urgent 04/21/22 12:43 CT abd pelvis IV con only Stat Hospital Course (1) Diverticulitis: 81yo female with history of dementia, HTN, HLP presenting with acute LLQ abdominal pain that began 04/20/22 with evidence for acute diverticulitis of distal descending colon w/o abscess or perforation WBC 11k Shortly after admission, had increased discomfort and screaming out in pain - repeat imaging completed, no significant change/no abscess/fluid collection -- mild acute diverticulitis distal descending colon Improving with bowel rest, IVFs, abx. Now tolerating clear liquids diet. Leukocytosis resolved, afebrile. Still some abdominal tenderness but overall improved. Now with frequent loose stools -check C. diff -continue IV Zosyn for now, plan to convert to po abx on dc to complete 10 day course -IVFs now dcd -continue pain control as needed-convert IV tylenol to po now that keon po. IV morphine ordered but none used since 04/22 -follow clinically -adv diet to full liquids (2) Dementia: Patient with dementia. Daughter reports that she becomes confused in the hospital Frequent orientation, ambulation as tolerated. Maintain sleep/wake cycle Continue aricept/namenda, sertraline try to avoid opioids for pain control unless really needed Appears at stable baseline per daughter (3) Hypertension: Blood pressure stable Per last PCP note, Atenolol was decreased to 25mg po daily -restart atenolol (held yesterday for low normal BPs) (4) Hyperlipemia: Chronic. Stable -restart Rosuvastatin 10mg po daily as now keon po (5) Depression: Chronic. -Continue Sertraline (6) Sleep apnea: Chronic. No device use DVT Prophylaxis -- SCDs, add Lovenox PT/OT consulted as patient lives alone, however does have daughter that lives very close Continued stay Home Health Attestation I certify that this patient is under my care and that I, or a physicians clinical trials assistant working with me, had a face to-face encounter that meets the home health [id number] encounter requirements with this patient. The encounter with the patient was in whole, or in part, for the following medical condition, which is the primary reason for home health care (list medical condition): divertculitis I certify that, based on my findings, the following services are medically necessary home health services: My clinical findings support the need for the above services because: OT Assess ADL Status and Restore Function w ADLs PT Assessment for Endurance / Balance / Strength PT Eval for Safety and Mobility PT Eval for Safety, Gait Training, Assistive Devices PT Gait and Balance Training, Strengthening and Safety Further, I certify that my clinical findings support that this patient is homebound (i.e. absences from home require considerable and taxing effort and are for medical reasons or [employer] services or infrequently or of short duration when for other reasons) because: Transportation Assistance/Unable to Leave Home Unassisted Certification for Home Health Services: Based on the above findings, I certify that this patient is confined to the home and needs intermittent halfway care, physical therapy and/or speech therapy or continues to need occupational therapy. The patient is under my care, and I have initiated the establishment of the plan of care. This patient will be followed by a physician who will periodically review the plan of care. Discharge Plan Discharge Items Patient Disposition: Home - Home Health Services Reason For Visit: ACUTE DIVERTICULITIS Discharge Diagnosis: Acute diverticulitis Condition on Discharge: Good Activity: As commented below Activity Comment: Gradually increase activities over the next week Non-emergency contact: Primary Care Provider Call non-emergency contact if: you have any medication questions, your symptoms worsen, your pain is not controlled, your pain is worsening, your pain is unusual for you, your pain is concerning for you and you have a fever Follow-up/Referrals: Leonidas Crisostomo MD [Primary Care Provider] - 04/26/22 11:00 am (5-7 days ) Diet: Full liquid Addtl Attending Provider Instructions: Mrs Krause, You were hospitalized at [facility] for acute diverticulitis of the left colon. Please see handout describing diverticulitis. You were treated with bowel rest, IV fluids, pain medication, and IV antibiotics. With time your abdominal symptoms improved. You were restarted on a simple, clear liquid diet and you tolerated this. The clear liquid diet was then advanced to full liquids and thus far you are tolerating this as well. Recommendations: 1. Diet - * please follow a FULL LIQUIDS diet TODAY, 04/24/22, as well as TOMORROW on 04/25/22. * see handout on FULL LIQUIDS diet for more information; note that FULL LIQUIDS includes dairy products (avoid cheese, however). * you can start to slowly introduce LOW FIBER foods into your diet on 04/26/22. Again go slowly with this. See handout on LOW FIBER FOODS for additional information. * once over to LOW FIBER diet please stay on the low fiber diet for an additional 10 days. * by early May you can then resume a "normal" diet including foods rich in fiber. * again it is important to go very slowly with the diet advancement and to stay well-hydrated by drinking plenty of fluids. 2. Antibiotics - * start this TONIGHT upon return home * amoxicillin-clavulanate 875mg twice daily x 7 more days * probiotics once daily x 10 days 3. Under normal circumstances we would typically recommend a colonoscopy in about 8 weeks. This would be to evaluate the area of diverticulitis identified on the CT scan and to check for any other abnormalities in that region. However, this will be an individual decision up to you and your family doctor. Please speak with your family doctor about pros/cons of undergoing a colonoscopy later this summer. 4. Changes to your blood pressure medications - * during times of illness we often have to adjust your blood pressure medications * please do the following - * LOWER your atenolol dose to 25mg (1/2 tablet) once daily * HOLD your spironolactone for now; your family doctor will tell you if you need to resume it in the future 5. Your vitamin D level was just scantly low at 29.5 (normal is >30). Please take [id number] vitamin D 1000 IU daily. 6. Your stools may be loose/runny/soft for a few more days. As the diverticulitis fully resolves the stools will return to normal. Follow-up - see your family doctor in 5-7 days Return to [facility] if - * you have recurrent, severe abdominal pain * you have severe nausea and/or vomiting * you develop severe diarrhea * you have fevers over 100 degrees * any other concerns It was our pleasure to care for you at [facility]! Continue to feel better, Dr Carmona Pending Studies at Discharge: No Stand-Alone Forms: My [facility], Smoking Cessation Medications and DC Order Prescriptions: New cholecalciferol (vitamin D3) 25 mcg (1,000 unit) Capsule 1,000 unit PO QAM Qty: 60 RF: 0 amoxicillin-pot clavulanate 875-125 mg tablet 1 tab PO BID 7 Days Qty: 14 RF: 0 Saccharomyces boulardii 250 mg capsule 250 mg PO DAILY 10 Days Qty: 10 RF: 0 Continued rosuvastatin 10 mg tablet 10 mg PO DAILY Qty: 90 RF: 3 potassium chloride 10 mEq capsule, extended release 10 meq PO DAILY Qty: 90 RF: 3 sertraline 100 mg tablet 150 mg PO DAILY Qty: 135 RF: 3 donepezil 10 mg tablet See Rx Instructions .ROUTE .COMPLEX Qty: 90 RF: 3 multivitamin Tablet 1 tab PO QAM RF: 0 valacyclovir 1 gram Tablet 1,000 mg PO DAILY RF: 0 Focus Factor Vitamin 1 tab PO DAILY RF: 0 memantine 10 mg tablet 10 mg PO BID RF: 0 atenolol 50 mg tablet 25 mg PO DAILY Qty: 0 RF: 0 Discontinued spironolactone 25 mg tablet 25 mg PO DAILY Qty: 90 RF: 3 Discharge Orders: Discharge Order (Routine); Ordered 06/21/22 Ordered By: Rachid Becerra/Other Patient Handouts: Low-Fiber Diet, ED Diverticulitis, ED Full Liquid Diet Admission Data Admit Date/Time: 04/21/22 01:30 Attending Provider: Rachid Carmona Admit Provider: Faiza Rojas Primary Care Provider: Leonidas Crisostomo Other Providers: Faiza Rojas ; Tristan Ortiz Coding Diagnoses Diverticulitis K57.92 Dementia F03.90 Dementia type: unspecified type Dementia behavioral disturbance: without behavioral disturbance Hypertension I10 Hypertension type: essential hypertension Hyperlipemia E78.5 Depression F32.9 Depression Type: reactive depression Sleep apnea G47.33 Sleep apnea type: obstructive
== END 2022-04-24 16:54 | disposition home or self-care (01) | DRG 392 ==
LOC: ED 22:46 → EDINP 04-21 01:30 → SUATTDRO 04-21 01:30 → INTOOBSV 04-21 01:30 → 3W 04-21 15:15
DX: I44.7 Left bundle-branch block, unspecified; H90.3 Sensorineural hearing loss, bilateral; E83.42 Hypomagnesemia; F03.90 Unspecified dementia, unspecified severity, without behavioral disturbance, psychotic disturbance, mood disturbance, and anxiety; I10 Essential (primary) hypertension; K21.9 Gastro-esophageal reflux disease without esophagitis; G43.909 Migraine, unspecified, not intractable, without status migrainosus; G47.30 Sleep apnea, unspecified; M85.9 Disorder of bone density and structure, unspecified; B02.30 Zoster ocular disease, unspecified; K57.32 Diverticulitis of large intestine without perforation or abscess without bleeding; Z88.8 Allergy status to other drugs, medicaments and biological substances; F32.A Depression, unspecified; Z90.721 Acquired absence of ovaries, unilateral; E78.5 Hyperlipidemia, unspecified; J30.9 Allergic rhinitis, unspecified; M19.049 Primary osteoarthritis, unspecified hand; E87.6 Hypokalemia

== ENCOUNTER 2024-05-05 21:07 | Observation (INO) ==
[2024-05-05] MEDS: SODIUM CHLORIDE 0.9% 500 ML IV STA (22:06)
--- NOTE | 2024-05-05 22:07 | Emergency Department Note ---
Impression & Plan Kidney stone on right side, Hydronephrosis, Acute right flank pain ED Provider Note NAME: VERN ISLAS AGE: 83 SEX: F : 1940 ARRIVES VIA: Walk-In INFORMANT: Patient, the patient's family members ED PROVIDER(S): Rolo Murillo DO CHIEF COMPLAINT: Abdominal pain HPI: The patient is an 83-year-old female who presented to the emergency department with family for evaluation of acute abdominal pain. The patient has a history of kidney stones but she also has a history of diverticulitis. There is no reported fever but the patient did have nausea and vomiting prior to arrival. The patient was well earlier in the evening according to the family. ROS: See above HPI for pertinent positives & negatives. A total of 10 systems reviewed and were otherwise negative. PAST MEDICAL HISTORY: See Below PAST SURGICAL HISTORY: See Below FAMILY HISTORY: See Below SOCIAL HISTORY: See Below HOME MEDICATIONS: See Below ALLERGIES: See Below VITALS: See Below PHYSICAL EXAMINATION: GENERAL: The patient is awake and alert. The patient is very anxious and appears to be uncomfortable. EYES: The conjunctivae are clear. The pupils are round and reactive. EARS, NOSE, MOUTH AND THROAT: The nose is without any evidence of any deformity. NECK: The neck is nontender and supple. RESPIRATORY: Normal respiratory effort is noted there is no evidence of wheezing rhonchi or rales CARDIOVASCULAR: Regular rate and rhythm noted there no murmurs rubs or gallops normal S1 normal S2. GASTROINTESTINAL: The abdomen is distended with diffuse tenderness to palpation. There is guarding in the right side of the abdomen. MUSCULOSKELETAL/EXTREMITIES: There is no evidence of gross deformity full range of motion is noted in the hips and shoulders. SKIN: There is no obvious evidence of any rash. There are no petechiae, pallor or cyanosis noted. NEUROLOGIC: Patient is awake alert and oriented to person place and situation. Strength was symmetric. MEDICAL DECISION MAKING: The patient is an 83-year-old female who presented to the emergency department with severe right-sided flank pain. The patient was treated with pain medication in the emergency department. She was reevaluated multiple times. The patient does have a history of kidney stones. The patient was feeling somewhat improved on reevaluation. I discussed the patient's laboratory and radiographic studies with her and her family member. She does appear to have a distal right ureteral calculus with hydronephrosis. She does not live at home she lives in a personal residential. It sounds though they were not comfortable managing the patient's pain as an outpatient and I do not feel given her comorbidities that she would be an outpatient candidate. For this reason I discussed her case with the on-call [facility] hospitalist. Triage Nursing notes reviewed. Prior medical records reviewed Vital Signs: reviewed and remarkable for hypertension. Differential diagnosis: Etiologies such as appendicitis, diverticulitis, obstruction, inflammatory bowel disease, renal colic, PUD, biliary pathology, pancreatitis, mesenteric ischemia, aortic pathology, infections, genitourinary, UTI, perforated viscus, as well as others were entertained. ER treatment provided: See below Diagnostics interpreted by me: ECG: EKG was obtained in the emergency department. My interpretation is sinus rhythm at 65 bpm. Left bundle branch block pattern was noted. There was no ectopy. This was compared to a tracing from April 20, 2022. No changes were noted. Cardiac Monitoring: An order was placed for continuous cardiac monitoring. The monitor shows a rate of 91 bpm with sinus rhythm. Laboratory studies: As stated above and show below. Imaging studies: See below. Radiographic imaging was reviewed by myself Consultation(s): I discussed this case with Dr. Rojas who is on-call for the [facility] hospitalist group. 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) Pre-diabetes (Chronic) Sensorineural hearing loss (SNHL) of both ears (Chronic) Atherosclerosis of both carotid arteries (Chronic) Hypokalemia (Chronic) Medical History Diverticulitis Hyperlipemia Other cervical disc displacement, mid-cervical region, unspecified level Dementia Abdominal pain, RUQ Carpal tunnel syndrome Chronic sinusitis Fatigue Hoarseness Other and unspecified hyperlipidemia Hypertrophy of both inferior nasal turbinates Primary osteoarthritis, unspecified hand Sleep apnea Stricture of cervix Kidney stones Migraines Vertigo Surgical History History of sinus surgery H/O ovarian cystectomy Status post medial meniscus repair Cervical vertebral fusion History of carpal tunnel surgery History of arthroplasty S/P excision of Flannery's neuroma History of shoulder surgery Family History Father Emphysema lung Asthma Sinusitis Mother Stroke syndrome Brother Stroke syndrome Epilepsy Esophageal cancer Sinusitis Coronary heart disease Sister Sinusitis Breast cancer Thoracic spinal stenosis Aunt Stroke Uncle Stroke Grandmother Cancer Denies family history of Ovarian cancer Prostate cancer Myocardial infarction Lung cancer Colorectal cancer Social History Smoking Status: Never smoker Second Hand Exposure: No; Do You Dip or Chew Tobacco: No; Hx Alcohol Use: No Hx Substance Use: No Preferred Language: German Communication Ability: Effective Communication Ability Comment: daughter reports decreased ability in last few months Visual Impairment: Limited Hearing Ability: Use of Hearing Aid Finance Executive Required: No Beliefs That Will Affect Care: None marital status: / Current Living Situation: Alone current occupational status: retired How many Children do You have: 3 Feels Safe at Home: Yes Childhood Exposure to Second-Hand Smoke: Yes (dad smoked in house ) caffeine: Yes (soda ) Dental Care, Regularly: Yes Physical Activity Frequency: Does not Exercise Seatbelt Use: always Sunscreen Use: Yes (sometimes ) Assistive Devices: Cane, Glasses and Hearing Aid - Bilateral Allergies Allergies Allergy/AdvReac Type Severity Reaction Status Date / Time metronidazole Allergy Unknown CAN'T Verified 05/05/24 22:53 REMEMBER simvastatin [From Zocor] Allergy Unknown CAN'T Verified 05/05/24 22:53 REMEMBER ciprofloxacin [From Cipro] AdvReac Intermediate vertigo Verified 05/05/24 22:53 Home Meds Home Medications Medication Instructions Recorded Confirmed [id number] 250 1 tab PO Q6H PRN Migraine Headache 05/05/24 05/05/24 mg-250 mg-65 mg tablet (Excedrin Migraine) cholecalciferol (vitamin D3) 25 25 mcg PO DAILY 05/05/24 05/05/24 mcg (1,000 unit) tablet (Vitamin D3) donepezil 10 mg tablet 10 mg PO HS 05/05/24 05/05/24 losartan 50 mg tablet 50 mg PO DAILY 05/05/24 05/05/24 memantine 10 mg tablet 10 mg PO BID 05/05/24 05/05/24 multivitamin no.34-folic acid 1 1 tab PO DAILY 05/05/24 05/05/24 mg-NADH 5 [id number] mg tablet (Amladex) naproxen sodium 220 mg tablet 220 mg PO Q12H PRN Pain 05/05/24 05/05/24 potassium chloride 10 mEq 10 meq PO DAILY 05/05/24 05/05/24 capsule,extended release quetiapine 25 mg tablet 25 mg PO HS 05/05/24 05/05/24 rosuvastatin 10 mg tablet 10 mg PO DAILY 05/05/24 05/05/24 sertraline 100 mg tablet 100 mg PO DAILY 05/05/24 05/05/24 sertraline 50 mg tablet 50 mg PO DAILY 05/05/24 05/05/24 valacyclovir 1 gram tablet 1,000 mg PO DAILY 05/05/24 05/05/24 Results & Data (ED) Vital Signs Vital Signs - 24 hr 05/05/24 21:09 05/05/24 22:14 05/05/24 22:17 Temperature 36.6 C Temperature Source Temporal Artery Scan Pulse Rate 76 72 77 Pulse Rate from SpO2 Sensor 72 Respiratory Rate 20 24 Respiratory Effort / Characteristics Non-Labored Respiratory Depth Normal Respiratory Pattern Regular Blood Pressure 138/74 141/85 H Blood Pressure Mean 95 104 Pulse Oximetry 98 97 Oxygen Delivery Method Room Air Room Air Sepsis Recent Fever Within 48 Hours No Sepsis New/Unexplained Change in Mental Status No Sepsis Action Taken by Nursing No Action Required 05/05/24 22:30 05/05/24 23:00 05/05/24 23:39 Temperature Temperature Source Pulse Rate 75 80 85 Pulse Rate from SpO2 Sensor 73 70 76 Respiratory Rate 25 H 17 22 Respiratory Effort / Characteristics Respiratory Depth Respiratory Pattern Blood Pressure 145/80 H 132/75 150/80 H Blood Pressure Mean 101 94 103 Pulse Oximetry 97 96 94 Oxygen Delivery Method Room Air Room Air Room Air Sepsis Recent Fever Within 48 Hours Sepsis New/Unexplained Change in Mental Status Sepsis Action Taken by Nursing 05/06/24 00:09 05/06/24 00:30 Temperature Temperature Source Pulse Rate 82 91 H Pulse Rate from SpO2 Sensor 82 91 H Respiratory Rate 22 22 Respiratory Effort / Characteristics Respiratory Depth Respiratory Pattern Blood Pressure 138/81 156/98 H Blood Pressure Mean 100 117 Pulse Oximetry 99 100 Oxygen Delivery Method Room Air Room Air Sepsis Recent Fever Within 48 Hours Sepsis New/Unexplained Change in Mental Status Sepsis Action Taken by Snf Medications Current Medication List: was personally reviewed by me Laboratory Data Attestation: I reviewed the patient's lab results. 05/05/24 22:04 05/05/24 22:04 Lab Results 05/05/24 05/06/24 Range/Units 22:04 00:40 WBC 7.33 (4.8-10.8) K/ul RBC 4.35 (4.20-5.40) M/uL Hgb 13.7 (12.0-16.0) g/dl Hct 38.8 (37.0-47.0) % MCV 89.2 (80.0-100.0) fL MCH 31.5 (25.0-34.0) pg MCHC 35.3 (32.0-36.0) g/dL RDW Std Deviation 43.3 (36.4-46.3) fL RDW Coeff of Major 13.2 (11.5-14.5) % Plt Count 201 (130-400) K/uL MPV 9.2 L (9.4-12.4) fL Immature Gran % (Auto) 0.3 % Neut % (Auto) 62.8 % Lymph % (Auto) 26.2 % Bracken % (Auto) 9.1 % Eos % (Auto) 1.1 % Baso % (Auto) 0.5 % Neut # (Auto) 4.60 (1.40-6.50) K/uL Lymph # (Auto) 1.92 (1.20-3.40) K/uL Bracken # (Auto) 0.67 H (0.11-0.59) K/uL Eos # (Auto) 0.08 (0.00-0.50) K/uL Baso # (Auto) 0.04 (0.00-0.20) K/uL Immature Gran # (Auto) 0.02 (0.01-0.20) K/uL PT 10.7 (9.0-12.0) Seconds INR 1.0 (0.9-1.1) APTT 24 (21-31) Seconds PTT Ratio 0.9 Sodium 140 (136-145) mmol/L Potassium 3.6 (3.5-5.1) mmol/L Chloride 108 H (98-107) mmol/L Carbon Dioxide 22 (21-32) mmol/L Anion Gap 10 (3-11) BUN 28 H (6-23) mg/dl Creatinine 1.00 (0.6-1.2) mg/dl Est Cr Clr Drug Dosing 43.7 ml/min Est GFR ( Amer) 59.5 ml/min Est GFR (Non-Af Amer) 51.3 ml/min BUN/Creatinine Ratio 28.0 H (10-20) Glucose 94 (70-99(Fasting)) mg/dl Calcium 9.9 (8.6-10.3) mg/dl Total Bilirubin 0.4 (0.2-1.0) mg/dl AST 18 (13-39) U/L ALT 15 (7-52) U/L Alkaline Phosphatase 98 (34-104) U/L Troponin I High Sens 6.8 (0-14) pg/ml Total Protein 6.8 (6.0-8.3) gm/dl Albumin 4.5 (3.4-5.0) gm/dl Globulin 2.3 L (2.5-4.0) gm/dl Albumin/Globulin Ratio 2.0 (0.9-2) Lipase 84 H (11-82) U/L Urine Color [place] Urine Appearance Cloudy A (Clear) Urine pH 6.0 (4.5-7.5) Ur Specific Leburn 1.019 (1.000-1.030) Urine Protein Trace H (Negative) Urine Glucose (UA) Trace H (Negative) Urine Ketones Trace H (Negative) Urine Blood 3+ H (Negative) Urine Nitrite Negative (Negative) Urine Bilirubin Negative (Negative) Urine Urobilinogen Negative (Negative) Ur Leukocyte Esterase 1+ H (Negative) Urine WBC (Auto) 0-5 (0-5) /hpf Urine RBC (Auto) >20 H (0-2) /hpf U Hyaline Cast (Auto) 0-2 (0-2) /lpf U Epithel Cells (Auto) 0-2 (0-2) /hpf Urine Bacteria (Auto) None Seen (None Seen) Administered Medications Morphine Sulfate (Morphine Sulfate 4 Mg/Ml 1 Ml Carp\Vial) 4 mg IV Q15M PRN PRN Reason: Pain Stop: 05/19/24 21:53 Last Admin: 05/05/24 22:09 Dose: 4 mg Documented By: HENNA Discontinued Medications Sodium Chloride (Nss) 500 mls @ 999 mls/hr IV .Q31M STA Stop: 05/05/24 22:24 Last Infusion: 05/05/24 23:09 Dose: Infused Documented By: Admin: 05/05/24 22:06 Dose: 999 mls/hr Documented By: HENNA Ondansetron HCl (Ondansetron Inj 2 Mg/Ml 2 Ml Vial) 4 mg IV NOW STA Stop: 05/05/24 21:55 Last Admin: 05/05/24 22:09 Dose: 4 mg Documented By: HENNA Imaging Data Attestation: I personally reviewed and interpreted this imaging study as follows: My Impression: CT of the abdomen and pelvis was obtained in the emergency department. My interpretation is hydronephrosis with a distal right ureteral calculus, final report below Radiologist's Impression: Abdomen/Pelvis CT 05/05/24 21:54 Exam(s): CT ABDOMEN + PELVIS Without Contrast EXAM: CT Abdomen and Pelvis Without Intravenous Contrast CLINICAL HISTORY: Flank Pain. TECHNIQUE: Axial computed tomography images of the abdomen and pelvis without intravenous contrast. CTDI is 27 mGy and DLP is 1257 mGy-cm. Automated exposure control was utilized for the study. A dose lowering technique was utilized adhering to the principles of ALARA. COMPARISON: CT abdomen and pelvis 06/24/2022 FINDINGS: Lung bases: Unremarkable. No mass. No consolidation. Mediastinum: Small hiatal hernia. ABDOMEN: Liver: Unremarkable. Gallbladder and bile ducts: Unremarkable. No calcified stones. No ductal dilation. Pancreas: Unremarkable. No ductal dilation. Spleen: Unremarkable. No splenomegaly. Adrenals: Unremarkable. No mass. Kidneys and ureters: Mild right hydronephrosis secondary to a 5 mm left distal ureteral calculus. Simple appearing bilateral renal cysts are present, no follow up is needed. No left hydronephrosis. Stomach and bowel: Diverticulosis. No obstruction. No mucosal thickening. PELVIS: Appendix: No findings to suggest acute appendicitis. Bladder: Unremarkable. No stones. Reproductive: Hysterectomy. ABDOMEN and PELVIS: Intraperitoneal space: Unremarkable. No free air. No significant fluid collection. Bones/joints: No acute fracture. No dislocation. Soft tissues: Unremarkable. Vasculature: Moderate atherosclerosis. No abdominal aortic aneurysm. Lymph nodes: Unremarkable. No enlarged lymph nodes. IMPRESSION: 1. Mild right hydronephrosis secondary to a 5 mm left distal ureteral calculus. 2. Small hiatal hernia. 3. Diverticulosis. Electronically signed by: Vidhi Alba MD 05/06/24 01:34 AM Discharge Plan Visit Data Chief Complaint: Flank Pain Stated Complaint: RT FLANK PAIN, VOMITING, POSSIBLE KIDNEY STONE ED Provider: Rloo Murillo Discharge Problem: Kidney stone on right side, Hydronephrosis, Acute right flank pain Patient Disposition: Being Evaluated by Hospitalist Forms Stand Alone Forms: My [facility] Prescriptions Prescriptions: No Action losartan 50 mg Tablet 50 mg PO DAILY quetiapine 25 mg tablet 25 mg PO HS potassium chloride 10 mEq Capsule, Extended Release 10 meq PO DAILY valacyclovir 1 gram Tablet 1,000 mg PO DAILY donepezil 10 mg Tablet 10 mg PO HS sertraline 100 mg Tablet 100 mg PO DAILY naproxen sodium 220 mg Tablet 220 mg PO Q12H PRN (Reason: Pain) sertraline 50 mg Tablet 50 mg PO DAILY Rx Instructions: Take with 100 mg to = 150mg. Excedrin Migraine 250-250-65 mg Tablet 1 tab PO Q6H PRN (Reason: Migraine Headache) rosuvastatin 10 mg Tablet 10 mg PO DAILY memantine 10 mg Tablet 10 mg PO BID cholecalciferol (vitamin D3) [Vitamin D3] 25 mcg (1,000 unit) Tablet 25 mcg PO DAILY Amladex 1-5-50 mg Tablet 1 tab PO DAILY Referrals [facility]: [facility] [Primary Care Provider] - Discharge Problem: Hydronephrosis Qualifiers: Hydronephrosis type: unspecified Qualified Code(s): N13.30 - Unspecified hydronephrosis
[2024-05-05] MEDS: MoRPHine SULFATE 4 MG/ML 1 ML CARP\\VIAL IV PRN (22:09)
[2024-05-05] MEDS: ONDANSETRON INJ 2 MG/ML 2 ML VIAL IV STA (22:09)
[2024-05-05 22:22] LABS: Basophils # (auto) 0.04 K/uL (0.00-0.20); Basophils % (auto) 0.5 %; Eosinophils # (auto) 0.08 K/uL (0.00-0.50); Eosinophils % (auto) 1.1 %; Hematocrit (blood only) 38.8 % (37.0-47.0); Hemoglobin 13.7 g/dl (12.0-16.0); Immature Granulocytes # (auto) 0.02 K/uL (0.01-0.20); Immature Granulocytes % (auto) 0.3 %; Lymphocytes # (auto) 1.92 K/uL (1.20-3.40); Lymphocytes % (auto) 26.2 %; Mean Corpuscular Hemoglobin 31.5 pg (25.0-34.0); Mean Corpuscular Hgb Conc 35.3 g/dL (32.0-36.0); Mean Corpuscular Volume 89.2 fL (80.0-100.0); Mean Platelet Volume 9.2 fL (9.4-12.4); Monocytes # (auto) 0.67 K/uL (0.11-0.59); Monocytes % (auto) 9.1 %; Neutrophils % (auto) 62.8 %; Platelet Count 201 K/uL (130-400); RDW Coefficient of Variation 13.2 % (11.5-14.5); RDW Standard Deviation 43.3 fL (36.4-46.3); Red Blood Count 4.35 M/uL (4.20-5.40); White Blood Count 7.33 K/ul (4.8-10.8)
[2024-05-05 22:45] LABS: Albumin Level 4.5 gm/dl (3.4-5.0); Bilirubin,Total 0.4 mg/dl (0.2-1.0); Calcium 9.9 mg/dl (8.6-10.3); Creatinine Clr Calc Pharmacy 43.7 ml/min; Est GFR (African American) 59.5 ml/min; Est GFR (Non-African American) 51.3 ml/min; Globulin 2.3 gm/dl (2.5-4.0); Partial Thromboplastin Ratio 0.9; Partial Thromboplastin Time 24 Seconds (21-31); Potassium 3.6 mmol/L (3.5-5.1); Prothrombin Time 10.7 Seconds (9.0-12.0); Total Protein 6.8 gm/dl (6.0-8.3)
[2024-05-05 22:51] LABS: Troponin I High Sensitivity 6.8 pg/ml (0-14)
[2024-05-06 01:13] LABS: Appearance Urine Cloudy (Clear); Bacteria Urine Automated None Seen (None Seen); Bilirubin Urine Negative (Negative); Blood Urine 3+ (Negative); Cast Urine Automated 0-2 /lpf (0-2); Color Urine Orange; Epithelial Cell Urine Auto 0-2 /hpf (0-2); Glucose Urine UA Trace (Negative); Ketones Urine Trace (Negative); Leukocyte Esterase Urine 1+ (Negative); Nitrite Urine Negative (Negative); Protein Urine Trace (Negative); RBC Urine Automated >20 /hpf (0-2); Specific Gravity Urine 1.019 (1.000-1.030); Urobilinogen Urine Negative (Negative); WBC Urine Automated 0-5 /hpf (0-5)
--- NOTE | 2024-05-06 01:35 | CT Scan Report ---
Exam(s): CT ABDOMEN + PELVIS Without Contrast EXAM: CT Abdomen and Pelvis Without Intravenous Contrast CLINICAL HISTORY: Flank Pain. TECHNIQUE: Axial computed tomography images of the abdomen and pelvis without intravenous contrast. CTDI is 27 mGy and DLP is 1257 mGy-cm. Automated exposure control was utilized for the study. A dose lowering technique was utilized adhering to the principles of ALARA. COMPARISON: CT abdomen and pelvis 06/24/2022 FINDINGS: Lung bases: Unremarkable. No mass. No consolidation. Mediastinum: Small hiatal hernia. ABDOMEN: Liver: Unremarkable. Gallbladder and bile ducts: Unremarkable. No calcified stones. No ductal dilation. Pancreas: Unremarkable. No ductal dilation. Spleen: Unremarkable. No splenomegaly. Adrenals: Unremarkable. No mass. Kidneys and ureters: Mild right hydronephrosis secondary to a 5 mm left distal ureteral calculus. Simple appearing bilateral renal cysts are present, no follow up is needed. No left hydronephrosis. Stomach and bowel: Diverticulosis. No obstruction. No mucosal thickening. PELVIS: Appendix: No findings to suggest acute appendicitis. Bladder: Unremarkable. No stones. Reproductive: Hysterectomy. ABDOMEN and PELVIS: Intraperitoneal space: Unremarkable. No free air. No significant fluid collection. Bones/joints: No acute fracture. No dislocation. Soft tissues: Unremarkable. Vasculature: Moderate atherosclerosis. No abdominal aortic aneurysm. Lymph nodes: Unremarkable. No enlarged lymph nodes. IMPRESSION: 1. Mild right hydronephrosis secondary to a 5 mm left distal ureteral calculus. 2. Small hiatal hernia. 3. Diverticulosis. Electronically signed by: Vidhi Alba MD 05/06/24 01:34 AM
--- NOTE | 2024-05-06 01:58 | History & Physical Report ---
Date of Service May 06, 2024 Assessment & Plan (1) Kidney stone on right side: Plan: Patient with distal right ureteral calculus - 5mm. No evidence of infection on UA -Admit to medical -Pain control with Tylenol and Morphine PRN -Zofran PRN -IVF -Flomax Plan Dementia -Frequent orientation -Continue Aricept and Namenda -Continue Seroquel and Sertraline HTN - blood pressure stable -Continue Losartan HLP - chronic -Continue Crestor History of Present Illness Chief Complaint: flank pain Primary Care Provider: Gillismargarita Bhatt [place] Cornelia Krause is an 83yo female with history of HLP, HTN, Dementia presenting with acute, severe right flank pain. Patient developed pain around 20:00, right sided with associated nausea and vomiting as well as shaking chills. She has history of kidney stones in the past but does not recall details. In the ER she is afebrile, HD stable Pain improved with Morphine ER Course: NSS x 500mL Morphine 4mg IV Zofran 4mg IV Allergies Allergy/AdvReac Type Severity Reaction Status Date / Time metronidazole Allergy Unknown CAN'T Verified 05/05/24 22:53 REMEMBER simvastatin [From Zocor] Allergy Unknown CAN'T Verified 05/05/24 22:53 REMEMBER ciprofloxacin [From Cipro] AdvReac Intermediate vertigo Verified 05/05/24 22:53 Home Medications Medication Instructions Recorded Confirmed Type ixtiixp-xxocvwctpxzlx-ifynwuac 250 1 tab PO Q6H PRN Migraine Headache 05/05/24 05/05/24 History mg-250 mg-65 mg tablet (Excedrin Migraine) cholecalciferol (vitamin D3) 25 25 mcg PO DAILY 05/05/24 05/05/24 History mcg (1,000 unit) tablet (Vitamin D3) donepezil 10 mg tablet 10 mg PO HS 05/05/24 05/05/24 History losartan 50 mg tablet 50 mg PO DAILY 05/05/24 05/05/24 History memantine 10 mg tablet 10 mg PO BID 05/05/24 05/05/24 History multivitamin no.34-folic acid 1 1 tab PO DAILY 05/05/24 05/05/24 History mg-NADH 5 vv-[id number]-54 mg tablet (Amladex) naproxen sodium 220 mg tablet 220 mg PO Q12H PRN Pain 05/05/24 05/05/24 History potassium chloride 10 mEq 10 meq PO DAILY 05/05/24 05/05/24 History capsule,extended release quetiapine 25 mg tablet 25 mg PO HS 05/05/24 05/05/24 History rosuvastatin 10 mg tablet 10 mg PO DAILY 05/05/24 05/05/24 History sertraline 100 mg tablet 100 mg PO DAILY 05/05/24 05/05/24 History sertraline 50 mg tablet 50 mg PO DAILY 05/05/24 05/05/24 History valacyclovir 1 gram tablet 1,000 mg PO DAILY 05/05/24 05/05/24 History Past Med/Surg History Problem List Acute right flank pain (Acute) Hydronephrosis (Acute) Kidney stone on right side (Acute) History of diverticulitis Hypertension Depression Dementia Vitamin D insufficiency Chronic kidney disease, stage II (mild) Knee pain Anserine bursitis Gait abnormality Osteoporosis, unspecified Gait abnormality Cervicalgia Chronic osteoarthritis (Chronic) GERD without esophagitis (Chronic) Hyperlipidemia (Chronic) Left bundle branch block (Chronic) 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) Pre-diabetes (Chronic) Sensorineural hearing loss (SNHL) of both ears (Chronic) Atherosclerosis of both carotid arteries (Chronic) Hypokalemia (Chronic) Medical History Diverticulitis Hyperlipemia Other cervical disc displacement, mid-cervical region, unspecified level Dementia Abdominal pain, RUQ Carpal tunnel syndrome Chronic sinusitis Fatigue Hoarseness Other and unspecified hyperlipidemia Hypertrophy of both inferior nasal turbinates Primary osteoarthritis, unspecified hand Sleep apnea Stricture of cervix Kidney stones Migraines Vertigo Surgical History History of sinus surgery H/O ovarian cystectomy Status post medial meniscus repair Cervical vertebral fusion History of carpal tunnel surgery History of arthroplasty S/P excision of Flannery's neuroma History of shoulder surgery Family History Father Emphysema lung Asthma Sinusitis Mother Stroke syndrome Brother Stroke syndrome Epilepsy Esophageal cancer Sinusitis Coronary heart disease Sister Sinusitis Breast cancer Thoracic spinal stenosis Aunt Stroke Uncle Stroke Grandmother Cancer Denies family history of Ovarian cancer Prostate cancer Myocardial infarction Lung cancer Colorectal cancer Social History Smoking Status: Never smoker Second Hand Exposure: No; Do You Dip or Chew Tobacco: No; Hx Alcohol Use: No Hx Substance Use: No Preferred Language: Divehi Communication Ability: Effective Communication Ability Comment: daughter reports decreased ability in last few months Visual Impairment: Limited Hearing Ability: Use of Hearing Aid Diamond Blender Required: No Beliefs That Will Affect Care: None marital status: / Current Living Situation: Alone current occupational status: retired How many Children do You have: 3 Feels Safe at Home: Yes Childhood Exposure to Second-Hand Smoke: Yes (dad smoked in house ) caffeine: Yes (soda ) Dental Care, Regularly: Yes Physical Activity Frequency: Does not Exercise Seatbelt Use: always Sunscreen Use: Yes (sometimes ) Assistive Devices: Cane, Glasses and Hearing Aid - Bilateral Review of Systems Review of Systems: All systems reviewed & are unremarkable except as noted in HPI & below Physical Exam Physical Exam: General: patient resting comfortably, NAD, pleasant, answering questions but not oriented Skin: warm, dry, intact, no rashes or lesions HEENT: NC/AT, PERRL, EOMI, anicteric sclera, conjunctiva without injection, external ear normal to inspection and nontender, nares patent, moist mucus membranes, dentition intact, no oropharyngeal lesions, neck supple, trachea midline, no LAD, no thyromegaly, no JVD Heart: +S1/S2, regular, no m/r/g Lungs: equal air entry bilaterally, no rales/rhonchi/wheezes Abd: +BS, soft, NT/ND, no masses/organomegaly/ascites Ext: warm, 2+ pulses in UE/LE bilaterally, no clubbing/cyanosis or edema Neuro: nonfocal, speech intact, no facial droop, moving all extremities on command with equal strength 5/5 Results & Data Results & Data Vital Signs (Past 12 Hours) Vital Signs Temp Pulse Resp BP Pulse Ox O2 Del Method 05/06/24 00:30 91 H 22 156/98 H 100 Room Air 05/06/24 00:09 82 22 138/81 99 Room Air 05/05/24 23:39 85 22 150/80 H 94 Room Air 05/05/24 23:00 80 17 132/75 96 Room Air 05/05/24 22:30 75 25 H 145/80 H 97 Room Air 05/05/24 22:17 77 05/05/24 22:14 72 24 141/85 H 97 Room Air 05/05/24 21:09 36.6 C 76 20 138/74 98 Room Air Laboratory Results Laboratory Results WBC 7.33 K/ul (4.8-10.8) 05/05/24 22:04 RBC 4.35 M/uL (4.20-5.40) 05/05/24 22:04 Hgb 13.7 g/dl (12.0-16.0) 05/05/24 22:04 Hct 38.8 % (37.0-47.0) 05/05/24 22:04 MCV 89.2 fL (80.0-100.0) 05/05/24 22:04 MCH 31.5 pg (25.0-34.0) 05/05/24 22:04 MCHC 35.3 g/dL (32.0-36.0) 05/05/24 22:04 RDW Std Deviation 43.3 fL (36.4-46.3) 05/05/24 22:04 RDW Coeff of Major 13.2 % (11.5-14.5) 05/05/24 22:04 Plt Count 201 K/uL (130-400) 05/05/24 22:04 MPV 9.2 fL (9.4-12.4) L 05/05/24 22:04 Immature Gran % (Auto) 0.3 % 05/05/24 22:04 Neut % (Auto) 62.8 % 05/05/24 22:04 Lymph % (Auto) 26.2 % 05/05/24 22:04 Wilcox % (Auto) 9.1 % 05/05/24 22:04 Eos % (Auto) 1.1 % 05/05/24 22:04 Baso % (Auto) 0.5 % 05/05/24 22:04 Neut # (Auto) 4.60 K/uL (1.40-6.50) 05/05/24 22:04 Lymph # (Auto) 1.92 K/uL (1.20-3.40) 05/05/24 22:04 Wilcox # (Auto) 0.67 K/uL (0.11-0.59) H 05/05/24 22:04 Eos # (Auto) 0.08 K/uL (0.00-0.50) 05/05/24 22:04 Baso # (Auto) 0.04 K/uL (0.00-0.20) 05/05/24 22:04 Immature Gran # (Auto) 0.02 K/uL (0.01-0.20) 05/05/24 22:04 PT 10.7 Seconds (9.0-12.0) 05/05/24 22:04 INR 1.0 (0.9-1.1) 05/05/24 22:04 APTT 24 Seconds (21-31) 05/05/24 22:04 PTT Ratio 0.9 05/05/24 22:04 Sodium 140 mmol/L (136-145) 05/05/24 22:04 Potassium 3.6 mmol/L (3.5-5.1) 05/05/24 22:04 Chloride 108 mmol/L (98-107) H 05/05/24 22:04 Carbon Dioxide 22 mmol/L (21-32) 05/05/24 22:04 Anion Gap 10 (3-11) 05/05/24 22:04 BUN 28 mg/dl (6-23) H 05/05/24 22:04 Creatinine 1.00 mg/dl (0.6-1.2) 05/05/24 22:04 Est Cr Clr Drug Dosing 43.7 ml/min 05/05/24 22:04 Est GFR ( Amer) 59.5 ml/min 05/05/24 22:04 Est GFR (Non-Af Amer) 51.3 ml/min 05/05/24 22:04 BUN/Creatinine Ratio 28.0 (10-20) H 05/05/24 22:04 Glucose 94 mg/dl (70-99(Fasting)) 05/05/24 22:04 Calcium 9.9 mg/dl (8.6-10.3) 05/05/24 22:04 Total Bilirubin 0.4 mg/dl (0.2-1.0) 05/05/24 22:04 AST 18 U/L (13-39) 05/05/24 22:04 ALT 15 U/L (7-52) 05/05/24 22:04 Alkaline Phosphatase 98 U/L (34-104) 05/05/24 22:04 Troponin I High Sens 6.8 pg/ml (0-14) 05/05/24 22:04 Total Protein 6.8 gm/dl (6.0-8.3) 05/05/24 22:04 Albumin 4.5 gm/dl (3.4-5.0) 05/05/24 22:04 Globulin 2.3 gm/dl (2.5-4.0) L 05/05/24 22:04 Albumin/Globulin Ratio 2.0 (0.9-2) 05/05/24 22:04 Lipase 84 U/L (11-82) H 05/05/24 22:04 Urine Color Collier 05/06/24 00:40 Urine Appearance Cloudy (Clear) A 05/06/24 00:40 Urine pH 6.0 (4.5-7.5) 05/06/24 00:40 Ur Specific Marlin 1.019 (1.000-1.030) 05/06/24 00:40 Urine Protein Trace (Negative) H 05/06/24 00:40 Urine Glucose (UA) Trace (Negative) H 05/06/24 00:40 Urine Ketones Trace (Negative) H 05/06/24 00:40 Urine Blood 3+ (Negative) H 05/06/24 00:40 Urine Nitrite Negative (Negative) 05/06/24 00:40 Urine Bilirubin Negative (Negative) 05/06/24 00:40 Urine Urobilinogen Negative (Negative) 05/06/24 00:40 Ur Leukocyte Esterase 1+ (Negative) H 05/06/24 00:40 Urine WBC (Auto) 0-5 /hpf (0-5) 05/06/24 00:40 Urine RBC (Auto) >20 /hpf (0-2) H 05/06/24 00:40 U Hyaline Cast (Auto) 0-2 /lpf (0-2) 05/06/24 00:40 U Epithel Cells (Auto) 0-2 /hpf (0-2) 05/06/24 00:40 Urine Bacteria (Auto) None Seen (None Seen) 05/06/24 00:40 Impressions Abdomen/Pelvis CT 05/05/24 21:54 Exam(s): CT ABDOMEN + PELVIS Without Contrast EXAM: CT Abdomen and Pelvis Without Intravenous Contrast CLINICAL HISTORY: Flank Pain. TECHNIQUE: Axial computed tomography images of the abdomen and pelvis without intravenous contrast. CTDI is 27 mGy and DLP is 1257 mGy-cm. Automated exposure control was utilized for the study. A dose lowering technique was utilized adhering to the principles of ALARA. COMPARISON: CT abdomen and pelvis 06/24/2022 FINDINGS: Lung bases: Unremarkable. No mass. No consolidation. Mediastinum: Small hiatal hernia. ABDOMEN: Liver: Unremarkable. Gallbladder and bile ducts: Unremarkable. No calcified stones. No ductal dilation. Pancreas: Unremarkable. No ductal dilation. Spleen: Unremarkable. No splenomegaly. Adrenals: Unremarkable. No mass. Kidneys and ureters: Mild right hydronephrosis secondary to a 5 mm left distal ureteral calculus. Simple appearing bilateral renal cysts are present, no follow up is needed. No left hydronephrosis. Stomach and bowel: Diverticulosis. No obstruction. No mucosal thickening. PELVIS: Appendix: No findings to suggest acute appendicitis. Bladder: Unremarkable. No stones. Reproductive: Hysterectomy. ABDOMEN and PELVIS: Intraperitoneal space: Unremarkable. No free air. No significant fluid collection. Bones/joints: No acute fracture. No dislocation. Soft tissues: Unremarkable. Vasculature: Moderate atherosclerosis. No abdominal aortic aneurysm. Lymph nodes: Unremarkable. No enlarged lymph nodes. IMPRESSION: 1. Mild right hydronephrosis secondary to a 5 mm left distal ureteral calculus. 2. Small hiatal hernia. 3. Diverticulosis. Electronically signed by: Vidhi Alba MD 05/06/24 01:34 AM Code Status & VTE Plan VTE Prophylaxis Plan VTE Prophylaxis will be ordered: Yes PG Care Time/CCT Total # of Minutes Spent Total Time Spent with Patient: Total time spent is greater than 50% in coordination of care (as documented) at patient's floor/unit and/or counseling patient: Coding Level of Care Code 63507 INT INP/OBS CARE 2/55MIN Diagnoses Kidney stone on right side N20.0
[2024-05-06] MEDS ORDERED: MoRPHine SULFATE 4 MG/ML 1 ML CARP\\VIAL IV PRN (03:40)
[2024-05-06] MEDS ORDERED: ONDANSETRON INJ 2 MG/ML 2 ML VIAL IV PRN (03:40)
[2024-05-06] MEDS: QUEtiapine FUMARATE 25 MG TABLET PO STA (04:19)
[2024-05-06] MEDS: DONEPEZIL HCL 10 MG TAB PO STA (04:19)
[2024-05-06] MEDS: MEMANTINE HCL 10 MG TAB PO STA (04:19)
[2024-05-06] MEDS: TAMSULOSIN HCL 0.4 MG CAP PO ONE (04:24)
[2024-05-06] MEDS ORDERED: HALOPERIDOL LACTATE 5 MG/ML 1 ML VIAL IM PRN (04:36)
[2024-05-06] MEDS: LACTATED RINGER'S 1,000 ML IV SCH (04:37)
[2024-05-06] MEDS: valACYclovir HCL 500 MG TABLET PO SCH (07:29)
[2024-05-06] MEDS: MEMANTINE HCL 10 MG TAB PO SCH (07:30)
[2024-05-06] MEDS: SERTRALINE HCL 100 MG TABLET PO SCH (07:30)
[2024-05-06] MEDS: SERTRALINE HCL 50 MG TABLET PO SCH (07:31)
[2024-05-06] MEDS: LOSARTAN POTASSIUM 50 MG TAB PO SCH (07:31)
[2024-05-06] MEDS: ROSUVASTATIN CALCIUM 10 MG TAB PO SCH (07:31)
[2024-05-06] MEDS: ACETAMINOPHEN 325 MG TAB PO PRN (07:42)
--- NOTE | 2024-05-06 08:00 | Hospitalist Progress Note ---
Date of Service May 06, 2024 Assessment & Plan (1) Kidney stone on right side: Plan: Patient with distal right ureteral calculus - 5mm. No evidence of infection on UA Intravenous fluids and culture urine -Pain control with Tylenol and Morphine PRN -Zofran PRN - -Flomax send urine culture Plan Dementia -Frequent orientation -Continue Aricept and Namenda -Continue Seroquel and Sertraline HTN - blood pressure stable -Continue Losartan HLP - chronic -Continue Crestor Admission and Anticipated Discharge Date Admission Date: May 06, 2024 Subjective Patient presented with abdominal pain family is unclear whether worse on the right or left side. Patient has a left renal stone with mild hydro on presentation. Patient is fairly memory impaired and difficult historian. Currently at rest she is without discomfort on exam she is particularly tender Physical Exam Physical Exam: Alert and oriented x 2 Card exam is regular with a systolic murmur Lungs are clear without wheezes or crackles Abdomen is tender in bilateral lower quadrants and bilateral CVA angle's Results & Data Results & Data Vital Signs (Past 12 Hours) Vital Signs Temp Pulse Pulse Resp BP Pulse Ox O2 Del Method 05/06/24 03:41 Room Air 05/06/24 03:41 93 H 16 95 Room Air 05/06/24 03:04 Room Air 05/06/24 02:33 92 H 17 05/06/24 02:09 85 20 135/81 95 Room Air 05/06/24 02:05 82 05/06/24 01:30 93 H 19 154/81 H 05/06/24 01:03 87 19 05/06/24 00:30 91 H 22 156/98 H 100 Room Air 05/06/24 00:09 82 22 138/81 99 Room Air 05/05/24 23:39 85 22 150/80 H 94 Room Air 05/05/24 23:00 80 17 132/75 96 Room Air 05/05/24 22:30 75 25 H 145/80 H 97 Room Air 05/05/24 22:17 77 05/05/24 22:14 72 24 141/85 H 97 Room Air 05/05/24 21:09 97.9 F 76 20 138/74 98 Room Air Laboratory Results Reviewed CBC reviewed chemistry PG Care Time/CCT Total # of Minutes Spent Total Time Spent with Patient: Total time spent is greater than 50% in coordination of care (as documented) at patient's floor/unit and/or counseling patient: Coding Level of Care Code 51895 SUB INP/OBS CARE MIN Diagnoses Kidney stone on right side N20.0
[2024-05-06] MEDS: PLASMA-LYTE A 1,000 ML IV SCH (10:39)
[2024-05-06] MEDS: TAMSULOSIN HCL 0.4 MG CAP PO SCH (10:39)
[2024-05-06 11:09] LABS: BUN Creatinine Ratio 25.8 (10-20); Calcium 8.9 mg/dl (8.6-10.3); Creatinine Clr Calc Pharmacy 49.3 ml/min; Est GFR (African American) 68.5 ml/min; Est GFR (Non-African American) 59.1 ml/min; Potassium 3.7 mmol/L (3.5-5.1)
[2024-05-06 11:14] LABS: Hematocrit (blood only) 36.1 % (37.0-47.0); Hemoglobin 12.1 g/dl (12.0-16.0); Mean Corpuscular Hemoglobin 31.1 pg (25.0-34.0); Mean Corpuscular Hgb Conc 33.5 g/dL (32.0-36.0); Mean Corpuscular Volume 92.8 fL (80.0-100.0); Mean Platelet Volume 9.2 fL (9.4-12.4); Platelet Count 167 K/uL (130-400); RDW Coefficient of Variation 13.3 % (11.5-14.5); RDW Standard Deviation 45.1 fL (36.4-46.3); Red Blood Count 3.89 M/uL (4.20-5.40); White Blood Count 5.79 K/ul (4.8-10.8)
--- NOTE | 2024-05-06 16:05 | XRay Report ---
XR KUB/Abdomen 1 view CLINICAL HISTORY: eval left renal stone TECHNIQUE: 1 view of the abdomen was obtained. Comparison: Comparison is made to CT abdomen pelvis 05/05/2024 FINDINGS: Right nephrolithiasis is seen. Left nephrolithiasis is not seen in this exam. Pelvic calcifications a re compatible with phleboliths. Previously noted right distal ureteral stone is likely unchanged. Deg enerative changes are seen in the visualized skeleton. The bowel gas pattern is nonobstructive. A mod erate amount of stool is noted within the large bowel. IMPRESSION: No left nephrolithiasis is seen. Previously noted right ureteral stone is likely unchanged in positio n. If clinical concern remains, a CT abdomen pelvis renal stone protocol is a more sensitive modality . ACT 112: Negative or not required by law. Electronically signed by: Jaime Thurston M.D. 05/06/2024 4:03 PM
[2024-05-06] MEDS: QUEtiapine FUMARATE 25 MG TABLET PO SCH (20:23)
[2024-05-06] MEDS: DONEPEZIL HCL 10 MG TAB PO SCH (20:24)
[2024-05-06] MEDS: MoRPHine SULFATE 2 MG/ML CARP IV PRN (20:31)
[2024-05-07 06:55] LABS: Hematocrit (blood only) 34.5 % (37.0-47.0); Hemoglobin 11.7 g/dl (12.0-16.0); Mean Corpuscular Hemoglobin 31.5 pg (25.0-34.0); Mean Corpuscular Hgb Conc 33.9 g/dL (32.0-36.0); Mean Platelet Volume 9.3 fL (9.4-12.4); Platelet Count 158 K/uL (130-400); RDW Coefficient of Variation 13.3 % (11.5-14.5); RDW Standard Deviation 44.9 fL (36.4-46.3); Red Blood Count 3.71 M/uL (4.20-5.40); White Blood Count 5.35 K/ul (4.8-10.8)
[2024-05-07 07:08] LABS: BUN Creatinine Ratio 25.7 (10-20); Calcium 8.3 mg/dl (8.6-10.3); Creatinine Clr Calc Pharmacy 62.7 ml/min; Est GFR (African American) 91.6 ml/min; Potassium 3.8 mmol/L (3.5-5.1)
--- NOTE | 2024-05-07 07:31 | Electrocardiogram Report ---
Test Reason : Blood Pressure : / mmHG Vent. Rate : 065 BPM Atrial Rate : 065 BPM P-R Int : 182 ms QRS Dur : 128 ms QT Int : 456 ms P-R-T Axes : 067 002 096 degrees QTc Int : 474 ms Normal sinus rhythm with sinus arrhythmia Left bundle branch block Abnormal ECG When compared with ECG of 20-APR-2022 23:42, No significant change was found Confirmed by Regino Jefferson ([id number]) on 05/07/2024 7:31:16 AM Referred By: Jose Jacinto Confirmed By:Regino Jefferson
--- NOTE | 2024-05-07 16:15 | Discharge Summary ---
Discharge Summary Date of Service May 07, 2024 Principal Dx & Hospital Course #1 = Principal Diagnosis (1) Kidney stone on right side: Patient presented with distal right ureteral calculus - 5mm. No evidence of infection on UA symptoms improved, kub without defined left sided stone seen, right sided stone unchanged no pain or renal distress will refer for outpt urology follow up, pt and son are pleased to go home - -Flomax ua with 50,000 group b strep, will rx some amoxil Plan Dementia -Frequent orientation -Continue Aricept and Namenda -Continue Seroquel and Sertraline HTN - blood pressure stable -Continue Losartan HLP - chronic -Continue Crestor Notes For Next Care Provider Medication Changes From Visit late entry for some amoxil as a precaution, will coordinate urology apt Admission HPI Per Admitting Provider Cornelia Krause is an 83yo female with history of HLP, HTN, Dementia presenting with acute, severe right flank pain. Patient developed pain around 20:00, right sided with associated nausea and vomiting as well as shaking chills. She has history of kidney stones in the past but does not recall details. In the ER she is afebrile, HD stable Pain improved with Morphine ER Course: NSS x 500mL Morphine 4mg IV Zofran 4mg IV Discharge Exam awake and walking in room, no distress, Updated Medication List Medication Instructions Recorded Confirmed Type yjhqndb-sumfpbktlzlzy-djyfezqd 250 1 tab PO Q6H PRN Migraine Headache 05/05/24 05/05/24 History mg-250 mg-65 mg tablet (Excedrin Migraine) cholecalciferol (vitamin D3) 25 25 mcg PO DAILY 05/05/24 05/05/24 History mcg (1,000 unit) tablet (Vitamin D3) donepezil 10 mg tablet 10 mg PO HS 05/05/24 05/05/24 History losartan 50 mg tablet 50 mg PO DAILY 05/05/24 05/05/24 History memantine 10 mg tablet 10 mg PO BID 05/05/24 05/05/24 History multivitamin no.34-folic acid 1 1 tab PO DAILY 05/05/24 05/05/24 History mg-NADH 5 [id number]-56 mg tablet (Amladex) naproxen sodium 220 mg tablet 220 mg PO Q12H PRN Pain 05/05/24 05/05/24 History potassium chloride 10 mEq 10 meq PO DAILY 05/05/24 05/05/24 History capsule,extended release quetiapine 25 mg tablet 25 mg PO HS 05/05/24 05/05/24 History rosuvastatin 10 mg tablet 10 mg PO DAILY 05/05/24 05/05/24 History sertraline 100 mg tablet 100 mg PO DAILY 05/05/24 05/05/24 History sertraline 50 mg tablet 50 mg PO DAILY 05/05/24 05/05/24 History valacyclovir 1 gram tablet 1,000 mg PO DAILY 05/05/24 05/05/24 History tamsulosin 0.4 mg capsule 0.4 mg PO QAM #5 caps 05/07/24 Rx Hospital Stay Data Consultations 05/06/24 01:38 ED Decision to Admit Stat Diagnostic Imagining Performed 05/05/24 21:54 CT abd pelvis wo con Stat Pending Results Patient Have Any Pending Studies at Discharge: Yes Discharge Instructions Given to Patient (Per Discharging Provider) you did have a renal stone, it is felt to have passed, there is no kidney dysfuntion, your urine culture will continue to be watched for the next 4 days and if an infection is identified you will have antibiotics phoned in for you to take keep hydrated and please return if symptoms recurr please also keep track of possible constipation Total Time Total Time Spent Total Time Spent (In Minutes): It required greater than 30 minutes to prepare this patient for discharge. Coding Level of Care Code 42922 INP/OBS DISCH >30 MIN Diagnoses Kidney stone on right side N20.0
== END 2024-05-07 12:49 | disposition home or self-care (01) ==
LOC: ED 21:07 → 3N 21:07 → SUATTDRO 05-06 01:57 → 3N 05-06 03:04
DX: N13.2 Hydronephrosis with renal and ureteral calculous obstruction; Z88.1 Allergy status to other antibiotic agents; Z79.899 Other long term (current) drug therapy; E78.5 Hyperlipidemia, unspecified; I10 Essential (primary) hypertension; F03.90 Unspecified dementia, unspecified severity, without behavioral disturbance, psychotic disturbance, mood disturbance, and anxiety; Z88.8 Allergy status to other drugs, medicaments and biological substances

== ENCOUNTER 2024-07-31 10:37 | Observation (INO) ==
--- NOTE | 2024-07-31 11:07 | Emergency Department Note ---
Impression & Plan Acute subdural hematoma, Abdominal pain, Fall from standing ED Provider Note HISTORY OF PRESENT ILLNESS: Patient is an 84-year-old female presenting after a fall from standing. Patient presents from the dementia unit. She reportedly was trying to run to escape from the unit when she fell, and landed on her bilateral knees and then hit her head. On arrival to the ER, the patient is confused and unable to provide meaningful history. She is complaining of generalized abdominal pain. She is not on any anticoagulation or antiplatelet therapy. Patient denies any chest pain or shortness of breath or lightheadedness prior to her fall. ROS: as above PHYSICAL EXAM: Constitutional: Patient appears in no acute distress. HENT: Head: Normocephalic and atraumatic. Eyes: EOMI, PERRL Mouth/Throat: Mucous membranes moist. Neck: Trachea midline. Neck supple. No midline cervical spine tenderness to palpation. Cardiovascular: RRR, No murmurs, rubs or gallops. Intact distal pulses. Pulmonary/Chest: No respiratory distress. Breath sounds clear and equal bilaterally. No wheezes or rales. Abdominal: Abdomen soft, no rebound or guarding. Diffuse TTP Musculoskeletal: No edema, tenderness or deformity noted. Skin: Warm and dry. No rash, erythema, pallor or cyanosis Psychiatric: Appropriate mood and affect for situation. Neurological: Alert but confused. CN II-XII grossly intact, moving all extremities equally and fully. MDM: - Vitals signs showed hypertension - History obtained via EMS, given patient's confusion and dementia. History as above. - Chronic conditions affecting care: dementia; HLD; GERD; CKD; HTN - Differential diagnoses include, but are not limited to: Intracranial hemorrhage; CVA; skull fracture; ACS; dysrhythmia; small bowel obstruction - Order placed for continuous cardiac monitoring. At this time, monitor showed rate of 77 bpm with normal sinus rhythm, per my interpretation. - External medical records reviewed. Discharge summary dated 05/2024 was reviewed. Patient was admitted for right sided kidney stone. - EKG interpreted by myself showed normal sinus rhythm. Rate 68 bpm. QT 452. No acute ischemic changes. Noted to have a left bundle branch block, which has been seen on previous EKGs. - Laboratory workup interpreted by myself showed normal WBC; stable electrolytes; normal PT/INR; normal troponin; normal lipase; normal TSH - Bilateral knee x-rays negative for any osseous abnormality, per my interpretation. - CT head wo contrast showed a trace acute subdural hemorrhage along the left convexity. - CT cervical spine wo contrast showed degenerative changes but no acute abnormality. - CT abdomen/pelvis with IV contrast negative for acute pathology. - Patient given 50 mcg IV fentanyl for her abdominal pain control after returning from CT scan. - Had a very thorough discussion with patient and patient's family about options for her acute subdural hematoma. Discussed that we do not have neurosurgery at [facility] and if their wishes were to proceed with surgical interventions if that was deemed necessary on repeat imaging, we would need to get her transferred to a tertiary care facility. However, they report that they would not want the patient to have surgical interventions for an acute intracranial hemorrhage. As such, will admit to hospitalist service here at [facility] for repeat CT imaging and monitoring. - Discussion was had with returned case inspector about patient's case and need for admission - Hospitalist consulted for admission - Patient admitted to [facility] hospitalist service for further evaluation and management. ASSESSMENT AND PLAN: Diagnosis: fall from standing; subdural hematoma; abdominal pain Plan: admit Past Med/Surg History Problem List (Updated 07/31/24 @ 16:06 by Radha Yepez MD) Fall from standing (Acute) Abdominal pain (Acute) Acute subdural hematoma (Acute) Right ureteral calculus History of diverticulitis Hypertension Depression Dementia Vitamin D insufficiency Chronic kidney disease, stage II (mild) Knee pain Anserine bursitis Gait abnormality Osteoporosis, unspecified Gait abnormality Cervicalgia Chronic osteoarthritis (Chronic) GERD without esophagitis (Chronic) Hyperlipidemia (Chronic) Left bundle branch block (Chronic) 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) Pre-diabetes (Chronic) Sensorineural hearing loss (SNHL) of both ears (Chronic) Atherosclerosis of both carotid arteries (Chronic) Hypokalemia (Chronic) Medical History Diverticulitis Hyperlipemia Other cervical disc displacement, mid-cervical region, unspecified level Dementia Abdominal pain, RUQ Carpal tunnel syndrome Chronic sinusitis Fatigue Hoarseness Other and unspecified hyperlipidemia Hypertrophy of both inferior nasal turbinates Primary osteoarthritis, unspecified hand Sleep apnea Stricture of cervix Kidney stones Migraines Vertigo Surgical History History of sinus surgery H/O ovarian cystectomy Status post medial meniscus repair Cervical vertebral fusion History of carpal tunnel surgery History of arthroplasty S/P excision of Flannery's neuroma History of shoulder surgery Family History Father Emphysema lung Asthma Sinusitis Mother Stroke syndrome Brother Stroke syndrome Epilepsy Esophageal cancer Sinusitis Coronary heart disease Sister Sinusitis Breast cancer Thoracic spinal stenosis Aunt Stroke Uncle Stroke Grandmother Cancer Denies family history of Ovarian cancer Prostate cancer Myocardial infarction Lung cancer Colorectal cancer Social History Smoking Status: Unknown if ever smoked Second Hand Exposure: No; Do You Dip or Chew Tobacco: No; Hx Substance Use: No Preferred Language: Icelandic Communication Ability: Effective Communication Ability Comment: daughter reports decreased ability in last few months Visual Impairment: Limited Hearing Ability: Use of Hearing Aid 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 Beliefs That Will Affect Care: None marital status: / Current Living Situation: Personal Care Facility Current Living Situation Comment: Lives at [facility] current occupational status: retired How many Children do You have: 3 Feels Safe at Home: Declines to Answer Childhood Exposure to Second-Hand Smoke: Yes (dad smoked in house ) caffeine: Yes (soda ) Dental Care, Regularly: Yes Physical Activity Frequency: Does not Exercise Seatbelt Use: always Sunscreen Use: Yes (sometimes ) Assistive Devices: None Allergies Allergies Allergy/AdvReac Type Severity Reaction Status Date / Time metronidazole Allergy Unknown CAN'T Verified 07/14/24 13:53 REMEMBER simvastatin [From Zocor] Allergy Unknown CAN'T Verified 07/14/24 13:53 REMEMBER ciprofloxacin [From Cipro] AdvReac Intermediate vertigo Verified 07/14/24 13:53 Home Meds Home Medications Medication Instructions Recorded Confirmed [id number]-[id number]-efpthybu 250 1 tab PO Q6H PRN Migraine Headache 05/05/24 07/31/24 mg-250 mg-65 mg tablet (Excedrin Migraine) cholecalciferol (vitamin D3) 25 25 mcg PO .DAILY@0800 05/05/24 07/31/24 mcg (1,000 unit) tablet (Vitamin D3) donepezil 10 mg tablet 10 mg PO .DAILY@189905/05/24 07/31/24 losartan 50 mg tablet 50 mg PO .DAILY@79905/05/24 07/31/24 memantine 10 mg tablet 10 mg PO DAILY@0800,189905/05/24 07/31/24 naproxen sodium 220 mg tablet 220 mg PO Q12H PRN Pain 05/05/24 07/31/24 potassium chloride 10 mEq 10 meq PO .DAILY@79905/05/24 07/31/24 capsule,extended release quetiapine 25 mg tablet 25 mg PO .DAILY@189905/05/24 07/31/24 rosuvastatin 10 mg tablet 10 mg PO .DAILY@79905/05/24 07/31/24 sertraline 100 mg tablet 100 mg PO .DAILY@79905/05/24 07/31/24 sertraline 50 mg tablet 50 mg PO .DAILY@79905/05/24 07/31/24 valacyclovir 1 gram tablet 1,000 mg PO .DAILY@79905/05/24 07/31/24 multivitamin 1 tab PO .DAILY@79906/11/24 07/31/24 Results & Data (ED) Vital Signs Vital Signs - 24 hr 07/31/24 10:29 07/31/24 10:42 07/31/24 10:45 Temperature 36.7 C Temperature Source Oral Pulse Rate 88 70 Pulse Rate [Right Finger] Pulse Rate from SpO2 Sensor 70 Pulse Rhythm Regular Pulse Rhythm [Right Finger] Pulse Strength Normal Pulse Strength [Right Finger] Respiratory Rate 20 27 H Respiratory Effort / Characteristics Non-Labored Spontaneous Respiratory Depth Normal Respiratory Pattern Regular Blood Pressure 178/65 H 178/65 H Blood Pressure [Right Arm] Blood Pressure Mean 102 88 Blood Pressure Mean [Right Arm] Blood Pressure Position Sitting Blood Pressure Position [Right Arm] Pulse Oximetry 95 98 Oxygen Delivery Method Room Air Sepsis Recent Fever Within 48 Hours No Sepsis New/Unexplained Change in Mental Status No Sepsis Action Taken by Nursing No Action Required 07/31/24 10:48 07/31/24 10:51 07/31/24 10:54 Temperature 36.7 C Temperature Source Oral Pulse Rate 72 73 Pulse Rate [Right Finger] 88 Pulse Rate from SpO2 Sensor 72 Pulse Rhythm Pulse Rhythm [Right Finger] Regular Pulse Strength Pulse Strength [Right Finger] Normal Respiratory Rate 28 H 20 Respiratory Effort / Characteristics Non-Labored Spontaneous Respiratory Depth Normal Respiratory Pattern Regular Blood Pressure Blood Pressure [Right Arm] 178/65 H Blood Pressure Mean Blood Pressure Mean [Right Arm] 102 Blood Pressure Position Blood Pressure Position [Right Arm] Sitting Pulse Oximetry 97 95 Oxygen Delivery Method Room Air Sepsis Recent Fever Within 48 Hours Sepsis New/Unexplained Change in Mental Status Sepsis Action Taken by Nursing 07/31/24 11:00 07/31/24 11:03 07/31/24 11:04 Temperature Temperature Source Pulse Rate 72 78 Pulse Rate [Right Finger] Pulse Rate from SpO2 Sensor 71 Pulse Rhythm Regular Pulse Rhythm [Right Finger] Pulse Strength Pulse Strength [Right Finger] Respiratory Rate 20 20 Respiratory Effort / Characteristics Respiratory Depth Respiratory Pattern Blood Pressure 149/76 H Blood Pressure [Right Arm] Blood Pressure Mean 115 Blood Pressure Mean [Right Arm] Blood Pressure Position Blood Pressure Position [Right Arm] Pulse Oximetry 96 94 Oxygen Delivery Method Room Air Sepsis Recent Fever Within 48 Hours Sepsis New/Unexplained Change in Mental Status Sepsis Action Taken by Nursing 07/31/24 11:18 07/31/24 11:31 07/31/24 11:45 Temperature Temperature Source Pulse Rate 66 70 Pulse Rate [Right Finger] Pulse Rate from SpO2 Sensor 67 69 Pulse Rhythm Pulse Rhythm [Right Finger] Pulse Strength Pulse Strength [Right Finger] Respiratory Rate 16 18 Respiratory Effort / Characteristics Respiratory Depth Respiratory Pattern Blood Pressure 147/64 H Blood Pressure [Right Arm] Blood Pressure Mean 80 Blood Pressure Mean [Right Arm] Blood Pressure Position Blood Pressure Position [Right Arm] Pulse Oximetry 96 94 Oxygen Delivery Method Room Air Sepsis Recent Fever Within 48 Hours Sepsis New/Unexplained Change in Mental Status Sepsis Action Taken by Nursing 07/31/24 12:03 07/31/24 12:03 07/31/24 12:30 Temperature Temperature Source Pulse Rate 69 61 Pulse Rate [Right Finger] Pulse Rate from SpO2 Sensor 70 62 Pulse Rhythm Pulse Rhythm [Right Finger] Pulse Strength Pulse Strength [Right Finger] Respiratory Rate 16 16 Respiratory Effort / Characteristics Respiratory Depth Respiratory Pattern Blood Pressure 162/77 H Blood Pressure [Right Arm] Blood Pressure Mean 101 Blood Pressure Mean [Right Arm] Blood Pressure Position Blood Pressure Position [Right Arm] Pulse Oximetry 93 97 Oxygen Delivery Method Room Air Sepsis Recent Fever Within 48 Hours Sepsis New/Unexplained Change in Mental Status Sepsis Action Taken by Nursing 07/31/24 12:30 07/31/24 12:57 07/31/24 13:01 Temperature Temperature Source Pulse Rate 75 Pulse Rate [Right Finger] Pulse Rate from SpO2 Sensor 72 Pulse Rhythm Pulse Rhythm [Right Finger] Pulse Strength Pulse Strength [Right Finger] Respiratory Rate 22 Respiratory Effort / Characteristics Respiratory Depth Respiratory Pattern Blood Pressure 144/84 H 167/70 H Blood Pressure [Right Arm] Blood Pressure Mean 91 89 Blood Pressure Mean [Right Arm] Blood Pressure Position Blood Pressure Position [Right Arm] Pulse Oximetry 97 Oxygen Delivery Method Room Air Sepsis Recent Fever Within 48 Hours Sepsis New/Unexplained Change in Mental Status Sepsis Action Taken by Nursing 07/31/24 13:03 07/31/24 13:45 07/31/24 15:45 Temperature Temperature Source Pulse Rate 62 77 Pulse Rate [Right Finger] 70 Pulse Rate from SpO2 Sensor 61 Pulse Rhythm Pulse Rhythm [Right Finger] Pulse Strength Pulse Strength [Right Finger] Respiratory Rate 23 24 14 Respiratory Effort / Characteristics Respiratory Depth Respiratory Pattern Blood Pressure Blood Pressure [Right Arm] 140/69 Blood Pressure Mean Blood Pressure Mean [Right Arm] 92 Blood Pressure Position Blood Pressure Position [Right Arm] Pulse Oximetry 97 96 Oxygen Delivery Method Room Air Room Air Sepsis Recent Fever Within 48 Hours Sepsis New/Unexplained Change in Mental Status Sepsis Action Taken by Nursing Laboratory Data 07/31/24 12:05 07/31/24 12:05 Lab Results 07/31/24 07/31/24 Range/Units 12:05 Unknown WBC 6.25 (4.8-10.8) K/ul RBC 4.24 (4.20-5.40) M/uL Hgb 13.3 (12.0-16.0) g/dl Hct 38.8 (37.0-47.0) % MCV 91.5 (80.0-100.0) fL MCH 31.4 (25.0-34.0) pg MCHC 34.3 (32.0-36.0) g/dL RDW Std Deviation 42.1 (36.4-46.3) fL RDW Coeff of Major 12.5 (11.5-14.5) % Plt Count 194 (130-400) K/uL MPV 9.1 L (9.4-12.4) fL Immature Gran % (Auto) 0.2 % Neut % (Auto) 76.6 % Lymph % (Auto) 13.8 % [place] % (Auto) 7.5 % Eos % (Auto) 1.3 % Baso % (Auto) 0.6 % Neut # (Auto) 4.79 (1.40-6.50) K/uL Lymph # (Auto) 0.86 L (1.20-3.40) K/uL Newton # (Auto) 0.47 (0.11-0.59) K/uL Eos # (Auto) 0.08 (0.00-0.50) K/uL Baso # (Auto) 0.04 (0.00-0.20) K/uL Immature Gran # (Auto) 0.01 (0.01-0.20) K/uL PT 10.7 (9.0-12.0) Seconds INR 1.0 (0.9-1.1) Sodium 140 (136-145) mmol/L Potassium 4.0 (3.5-5.1) mmol/L Chloride 107 (98-107) mmol/L Carbon Dioxide 26 (21-32) mmol/L Anion Gap 7 (3-11) BUN 16 (6-23) mg/dl Creatinine 0.74 (0.6-1.2) mg/dl Est Cr Clr Drug Dosing 53.9 ml/min Est GFR ( Amer) 85.0 ml/min Est GFR (Non-Af Amer) 73.4 ml/min BUN/Creatinine Ratio 21.6 H (10-20) Glucose 95 (70-99(Fasting)) mg/dl Calcium 9.3 (8.6-10.3) mg/dl Magnesium 2.0 (1.7-2.4) mg/dl Total Bilirubin 0.5 (0.2-1.0) mg/dl AST 17 (13-39) U/L ALT 14 (7-52) U/L Alkaline Phosphatase 103 (34-104) U/L Troponin I High Sens 3.5 (0-14) pg/ml Total Protein 6.5 (6.0-8.3) gm/dl Albumin 4.2 (3.4-5.0) gm/dl Globulin 2.3 L (2.5-4.0) gm/dl Albumin/Globulin Ratio 1.8 (0.9-2) Lipase 64 (11-82) U/L TSH 1.532 (0.300-4.500) uIu/ml Urine Color Yellow Urine Appearance Clear (Clear) Urine pH 8.5 H (4.5-7.5) Ur Specific [place] 1.013 (1.000-1.030) Urine Protein Negative (Negative) Urine Glucose (UA) Negative (Negative) Urine Ketones Negative (Negative) Urine Blood Negative (Negative) Urine Nitrite Negative (Negative) Urine Bilirubin Negative (Negative) Urine Urobilinogen Negative (Negative) Ur Leukocyte Esterase Trace H (Negative) Urine WBC (Auto) 0-5 (0-5) /hpf Urine RBC (Auto) 0-2 (0-2) /hpf U Hyaline Cast (Auto) 0-2 (0-2) /lpf U Epithel Cells (Auto) 0-2 (0-2) /hpf Urine Bacteria (Auto) 2+ H (None Seen) Administered Medications Discontinued Medications Fentanyl Citrate (Fentanyl Citrate Pf 100 Mcg/2 Ml Vial) 50 mcg IV NOW STA Stop: 07/31/24 13:30 Last Admin: 07/31/24 13:34 Dose: 50 mcg Documented By: ASHOK Ioversol (Optiray 320 100ml) 94 ml IV ONCE ONE Stop: 07/31/24 13:20 Last Admin: 07/31/24 13:20 Dose: 94 ml Documented By: EDK Imaging Data Radiologist's Impression: Abdomen/Pelvis CT 07/31/24 11:04 CT OF THE ABDOMEN AND PELVIS WITH CONTRAST CLINICAL HISTORY: Abdominal pain. Fall. COMPARISON STUDY: CT of the abdomen and pelvis June 11, 2024. KUB July 03, 2024 TECHNIQUE: Following IV administration of 94 mL of Optiray, axial images of the abdomen and pelvis were obtained from the lung bases to the proximal femurs. Images were reviewed in the axial, sagittal, and coronal planes. IV contrast was administered without complication. Automated exposure control was utilized for the study. A dose lowering technique was utilized adhering to the principles of ALARA. FINDINGS: No hemoperitoneum or pneumoperitoneum is present. There is no evidence for traumatic injury to the liver, spleen, adrenal glands, kidneys or pancreas. Several small right renal calculi are present. There are no ureteral calculi. There is no hydronephrosis. There are bilateral renal parapelvic cysts. No biliary or pancreatic ductal dilatation. No evidence for a bowel obstruction. Colonic diverticulosis. No evidence for acute diverticulitis. Caliber and wall thickness of small and large bowel are normal. No acute lumbar spine, pelvic or hip fracture is present. IMPRESSION: 1. No acute traumatic findings within the abdomen or pelvis. 2. Colonic diverticulosis. No evidence for acute diverticulitis. 3. No bowel obstruction. No bowel wall thickening. ACT 112: Negative or not required by law. Electronically signed by: Dg Lacy M.D. 07/31/2024 1:[address] 07/31/24 11:04 CT cervical spine wo con CLINICAL HISTORY: fall from stnading TECHNIQUE: Multidetector row helical CT of the cervical spine was performed without administration of intravenous contrast. Coronal and sagittal reformations were obtained. Automated dose lowering techniques and/or adjustment according to patient size were utilized for this exam. Comparison: Comparison is made to CT cervical spine 11/06/2022 FINDINGS: No acute fractures or subluxations are identified. Degenerative changes are seen in the visualized spine. The alignment is normal. Soft tissues are unremarkable. IMPRESSION: Degenerative changes without evidence of acute bony injury. ACT 112: Negative or not required by law. Electronically signed by: Jaime Thurston M.D. 07/31/2024 1:[address] 07/31/24 11:04 CT SCAN OF THE BRAIN WITHOUT IV CONTRAST CLINICAL HISTORY: Fall. COMPARISON STUDY: CT of the brain dated 09/06/2023. TECHNIQUE: Unenhanced axial CT scan of the brain is performed from the vertex to the skull base. A dose lowering technique was utilized adhering to the principles of ALARA. FINDINGS: Brain parenchyma: There is trace acute subdural hemorrhage along the left convexity. This is best seen on axial image #19 and measures up to 3 mm in thickness. There is no associated mass effect. No additional foci of acute hemorrhage are identified. There is age-related involutional change noting [id number] subcortical and periventricular microangiopathic disease. There is no midline shift or evidence of acute territorial ischemia by CT criteria. Peñaloza-white matter differentiation is preserved. There is a tiny chronic lacunar infarct in the left cerebellar hemisphere. Ventricles, sulci, cisterns: Prominent secondary to involutional change. Intracranial vasculature: There is atherosclerotic calcification of the cavernous carotid and vertebral arteries. Calvarium: The skeletal structures are osteopenic. No depressed calvarial fracture is seen. Sinuses and mastoids: The visualized paranasal sinuses are clear. The mastoid air cells are well pneumatized. Orbits: The bony orbits are grossly intact. There are bilateral ocular lens implants. IMPRESSION: 1. There is trace acute subdural hemorrhage along the left convexity. There is no associated mass effect. 2. No additional foci of hemorrhage are seen. 3. There is no midline shift or evidence of acute territorial ischemia by CT criteria. ACT 112: Negative or not required by law. Electronically signed by: Reggie Hogan M.D. 07/31/2024 1:57 PM Knee X-Ray 07/31/24 11:04 RIGHT KNEE 3 VIEWS CLINICAL HISTORY: Fall with right knee injury. FINDINGS: AP, crosstable lateral, and sunrise views of the right knee are compared to study dated 08/09/2021. The skeletal structures are osteopenic. There is no radiographic evidence of acute fracture. There is moderate to severe tricompartmental degenerative joint space narrowing. Chondrocalcinosis is noted in the medial and lateral compartments. There are large marginal osteophytes and patellar enthesophytes. Bony overgrowth is seen along the dorsal aspect of the tibial plateau. No joint effusion is seen. The overlying soft tissues are within normal limits. IMPRESSION: 1. No acute bony abnormality is identified. 2. Osteopenia with degenerative change and chondrocalcinosis as above. Electronically signed by: Reggie Hogan M.D. 07/31/2024 12:43 PM Knee X-Ray 07/31/24 11:04 XR knee LT 3V CLINICAL HISTORY: knee pain s/p fall TECHNIQUE: 3 views of the left knee were obtained. Comparison: None available at the time of this dictation. FINDINGS: There is no evidence of an acute fracture. Degenerative changes are seen in the knee joint. No joint effusion is seen. No soft tissue abnormality is seen. IMPRESSION: No evidence of acute osseous injury. ACT 112: Negative or not required by law. Electronically signed by: Jaime Thurston M.D. 07/31/2024 12:30 PM Discharge Plan Visit Data Chief Complaint: Fall Stated Complaint: fall ED Provider: Radha Yepez Discharge Problem: Acute subdural hematoma, Abdominal pain, Fall from standing Forms Stand Alone Forms: [facility] Prescriptions Prescriptions: No Action multivitamin Tablet 1 tab PO .DAILY@0800 losartan 50 mg Tablet 50 mg PO .DAILY@0800 quetiapine 25 mg tablet 25 mg PO .DAILY@1900 potassium chloride 10 mEq Capsule, Extended Release 10 meq PO .DAILY@0800 valacyclovir 1 gram Tablet 1,000 mg PO .DAILY@0800 donepezil 10 mg Tablet 10 mg PO .DAILY@1900 sertraline 100 mg Tablet 100 mg PO .DAILY@0800 Rx Instructions: Take 100mg w/ 50mg tablet to equal 150mg by mouth every morning. naproxen sodium 220 mg Tablet 220 mg PO Q12H PRN (Reason: Pain) sertraline 50 mg Tablet 50 mg PO .DAILY@0800 Rx Instructions: Take 50mg w/ 100mg tablet to equal 150mg by mouth every morning. Excedrin Migraine 250-250-65 mg Tablet 1 tab PO Q6H PRN (Reason: Migraine Headache) rosuvastatin 10 mg Tablet 10 mg PO .DAILY@0800 memantine 10 mg Tablet 10 mg PO DAILY@0800,1900 cholecalciferol (vitamin D3) [Vitamin D3] 25 mcg (1,000 unit) Tablet 25 mcg PO .DAILY@0800 Referrals Referrals: Jasmin Chase [Primary Care Provider] -
[2024-07-31 12:22] LABS: Basophils # (auto) 0.04 K/uL (0.00-0.20); Basophils % (auto) 0.6 %; Eosinophils # (auto) 0.08 K/uL (0.00-0.50); Eosinophils % (auto) 1.3 %; Hematocrit (blood only) 38.8 % (37.0-47.0); Hemoglobin 13.3 g/dl (12.0-16.0); Immature Granulocytes # (auto) 0.01 K/uL (0.01-0.20); Immature Granulocytes % (auto) 0.2 %; Lymphocytes # (auto) 0.86 K/uL (1.20-3.40); Lymphocytes % (auto) 13.8 %; Mean Corpuscular Hemoglobin 31.4 pg (25.0-34.0); Mean Corpuscular Hgb Conc 34.3 g/dL (32.0-36.0); Mean Corpuscular Volume 91.5 fL (80.0-100.0); Mean Platelet Volume 9.1 fL (9.4-12.4); Monocytes # (auto) 0.47 K/uL (0.11-0.59); Monocytes % (auto) 7.5 %; Neutrophils # (auto) 4.79 K/uL (1.40-6.50); Neutrophils % (auto) 76.6 %; Platelet Count 194 K/uL (130-400); RDW Coefficient of Variation 12.5 % (11.5-14.5); RDW Standard Deviation 42.1 fL (36.4-46.3); Red Blood Count 4.24 M/uL (4.20-5.40); White Blood Count 6.25 K/ul (4.8-10.8)
--- NOTE | 2024-07-31 12:32 | XRay Report ---
XR knee LT 3V CLINICAL HISTORY: knee pain s/p fall TECHNIQUE: 3 views of the left knee were obtained. Comparison: None available at the time of this dictation. FINDINGS: There is no evidence of an acute fracture. Degenerative changes are seen in the knee joint. No joint effusion is seen. No soft tissue abnormality is seen. IMPRESSION: No evidence of acute osseous injury. ACT 112: Negative or not required by law. Electronically signed by: Jaime Thurston M.D. 07/31/2024 12:30 PM
[2024-07-31 12:38] LABS: Albumin Globulin Ratio 1.8 (0.9-2); Albumin Level 4.2 gm/dl (3.4-5.0); BUN Creatinine Ratio 21.6 (10-20); Bilirubin,Total 0.5 mg/dl (0.2-1.0); Calcium 9.3 mg/dl (8.6-10.3); Creatinine Clr Calc Pharmacy 53.9 ml/min; Est GFR (Non-African American) 73.4 ml/min; Globulin 2.3 gm/dl (2.5-4.0); Total Protein 6.5 gm/dl (6.0-8.3)
[2024-07-31 12:44] LABS: Troponin I High Sensitivity 3.5 pg/ml (0-14)
--- NOTE | 2024-07-31 12:44 | XRay Report ---
RIGHT KNEE 3 VIEWS CLINICAL HISTORY: Fall with right knee injury. FINDINGS: AP, crosstable lateral, and sunrise views of the right knee are compared to study dated 08/09/2021. The skeletal structures are osteopenic. There is no radiographic evidence of acute fracture. There is moderate to severe tricompartmental degenerative joint space narrowing. Chondrocalcinosis is noted in the medial and lateral compartments. There are large marginal osteophytes and patellar enth esophytes. Bony overgrowth is seen along the dorsal aspect of the tibial plateau. No joint effusion i s seen. The overlying soft tissues are within normal limits. IMPRESSION: 1. No acute bony abnormality is identified. 2. Osteopenia with degenerative change and chondrocalcinosis as above. Electronically signed by: Reggie Hogan M.D. 07/31/2024 12:43 PM
[2024-07-31 12:46] LABS: Prothrombin Time 10.7 Seconds (9.0-12.0)
[2024-07-31 12:53] LABS: Thyroid Stimulating Hormone 1.532 uIu/ml (0.300-4.500)
[2024-07-31] MEDS: OPTIRAY 320 100ml IV ONE (13:20)
[2024-07-31] MEDS: fentaNYL citrate PF 100 MCG/2 ML VIAL IV STA (13:34)
--- NOTE | 2024-07-31 13:36 | CT Scan Report ---
CT cervical spine wo con CLINICAL HISTORY: fall from stnading TECHNIQUE: Multidetector row helical CT of the cervical spine was performed without administration of intravenous contrast. Coronal and sagittal reformations were obtained. Automated dose lowering techn iques and/or adjustment according to patient size were utilized for this exam. Comparison: Comparison is made to CT cervical spine 11/06/2022 FINDINGS: No acute fractures or subluxations are identified. Degenerative changes are seen in the visualized sp ine. The alignment is normal. Soft tissues are unremarkable. IMPRESSION: Degenerative changes without evidence of acute bony injury. ACT 112: Negative or not required by law. Electronically signed by: Jaime Thurston M.D. 07/31/2024 1:34 PM
--- NOTE | 2024-07-31 13:44 | CT Scan Report ---
CT OF THE ABDOMEN AND PELVIS WITH CONTRAST CLINICAL HISTORY: Abdominal pain. Fall. COMPARISON STUDY: CT of the abdomen and pelvis June 11, 2024. KUB July 03, 2024 TECHNIQUE: Following IV administration of 94 mL of Optiray, axial images of the abdomen and pelvis we re obtained from the lung bases to the proximal femurs. Images were reviewed in the axial, sagittal, and coronal planes. IV contrast was administered without complication. Automated exposure control wa s utilized for the study. A dose lowering technique was utilized adhering to the principles of ALARA . FINDINGS: No hemoperitoneum or pneumoperitoneum is present. There is no evidence for traumatic injury to the liver, spleen, adrenal glands, kidneys or pancreas. Several small right renal calculi are pre sent. There are no ureteral calculi. There is no hydronephrosis. There are bilateral renal parapelvic cysts. No biliary or pancreatic ductal dilatation. No evidence for a bowel obstruction. Colonic dive rticulosis. No evidence for acute diverticulitis. Caliber and wall thickness of small and large bowel are normal. No acute lumbar spine, pelvic or hip fracture is present. IMPRESSION: 1. No acute traumatic findings within the abdomen or pelvis. 2. Colonic diverticulosis. No evidence for acute diverticulitis. 3. No bowel obstruction. No bowel wall thickening. ACT 112: Negative or not required by law. Electronically signed by: Dg Lacy M.D. 07/31/2024 1:41 PM
--- NOTE | 2024-07-31 13:59 | CT Scan Report ---
CT SCAN OF THE BRAIN WITHOUT IV CONTRAST CLINICAL HISTORY: Fall. COMPARISON STUDY: CT of the brain dated 09/06/2023. TECHNIQUE: Unenhanced axial CT scan of the brain is performed from the vertex to the skull base. A do se lowering technique was utilized adhering to the principles of ALARA. FINDINGS: Brain parenchyma: There is trace acute subdural hemorrhage along the left convexity. This is best see n on axial image #19 and measures up to 3 mm in thickness. There is no associated mass effect. No add itional foci of acute hemorrhage are identified. There is age-related involutional change noting mild -to-moderate subcortical and periventricular microangiopathic disease. There is no midline shift or e vidence of acute territorial ischemia by CT criteria. Peñaloza-white matter differentiation is preserved. There is a tiny chronic lacunar infarct in the left cerebellar hemisphere. Ventricles, sulci, cisterns: Prominent secondary to involutional change. Intracranial vasculature: There is atherosclerotic calcification of the cavernous carotid and vertebr al arteries. Calvarium: The skeletal structures are osteopenic. No depressed calvarial fracture is seen. Sinuses and mastoids: The visualized paranasal sinuses are clear. The mastoid air cells are well pneu matized. Orbits: The bony orbits are grossly intact. There are bilateral ocular lens implants. IMPRESSION: 1. There is trace acute subdural hemorrhage along the left convexity. There is no associated mass eff ect. 2. No additional foci of hemorrhage are seen. 3. There is no midline shift or evidence of acute territorial ischemia by CT criteria. ACT 112: Negative or not required by law. Electronically signed by: Reggie Hogan M.D. 07/31/2024 1:57 PM
[2024-07-31 14:21] LABS: Appearance Urine Clear (Clear); Bacteria Urine Automated 2+ (None Seen); Bilirubin Urine Negative (Negative); Blood Urine Negative (Negative); Cast Urine Automated 0-2 /lpf (0-2); Color Urine Yellow; Epithelial Cell Urine Auto 0-2 /hpf (0-2); Glucose Urine UA Negative (Negative); Ketones Urine Negative (Negative); Leukocyte Esterase Urine Trace (Negative); Nitrite Urine Negative (Negative); Protein Urine Negative (Negative); RBC Urine Automated 0-2 /hpf (0-2); Specific Gravity Urine 1.013 (1.000-1.030); Urobilinogen Urine Negative (Negative); WBC Urine Automated 0-5 /hpf (0-5); pH Urine 8.5 (4.5-7.5)
--- NOTE | 2024-07-31 16:38 | History & Physical Report ---
Date of Service July 31, 2024 Assessment & Plan (1) Fall from standing: Plan: Fall CThead with trace subdural hematoma Repeat CT: Stable CTC-spine: No bony injury Left knee x-ray: No acute findings Right knee x-ray: No acute findings CTA/P: No acute traumatic findings of the abdomen/pelvis (2) Acute subdural hematoma: Plan: Trace subdural hematoma, traumatic. Stable on interval imaging. Was of care reviewed with patient and her family. Does not desire transfer where surgical services are available for worsening, patient would want comfort measures if she were to clinically deteriorate Seizure prophylaxis deferred. No prior history of seizure, no evidence of seizure activity Patient is not on any anticoagulants or blood thinners requiring reversal (3) Dementia: Plan: Dementia Continue donepezil/memantine Continue Seroquel, sertraline (4) Hypertension: Plan: Hypertension Continue losartan Plan DVT prophylaxis: Pharmacal prophylaxis contraindicated in setting of subdural hematoma CODE STATUS: DNR/DNI Disposition: PCU History of Present Illness Primary Care Provider: Jasmin Bhatt Orville Mujica (Linda) is an 84-year-old female with a history of CKD, dementia who is a dementia unit resident to reportedly was running to escape sat unit when she tripped and fell landing on her knees and striking her head. Patient is confused and unable to provide history at bedside to ER provider. CThead shows a trace subdural hemorrhage along the left convexity, no midline shift or ischemia. Case was reviewed with patient's family by the ER provider who were clear that patient would not want surgical interventions under any circumstance and including if her scans were to worsen. Kin discussion was had that if the bleed progressed or worsened that it was likely that patient would and family notes at that time that patient would want to be [employer] rather than of any a types at aggressive interventions. As such patient was subsequently referred for admission with an interval CT to be performed at 1630 hrs. Seen at the bedside with her son present. History is limited by dementia, patient is a dementia unit resident. Reportedly was running from the unit when she tripped and fell and struck her head. At time bedside she is in no acute distress, awakens easily and is pleasant but a poor historian and falls back asleep. On afternoon reassessment she is much more alert. Prominent memory issues but is oriented to name. Denies pain. Pleasantly confused. Reviewed case extensively with patient's son. They report that he had discussed with the ER regarding management and potential goals and they are understanding that the brain bleed was fairly small and was unlikely to require transfer. Did discuss that while unlikely a brain bleed is a potentially life-threatening and catastrophic event for which if a patient is to have surgical intervention time is a critical factor and delays with thing such as transport or [employer] being unable to fly can cause significant delays and typically if there is a concern that a bleed is acute or could worsen a patient that might want surgical intervention will typically be transferred to a facility where those services are available. Her son expresses a appreciation of this conversation and notes he was not completely aware of this part of the decision making. After considering this son notes that if she were to have a worsening bleed that aggressive surgical mentions and hematoma evacuation are not something that would be within Cornelia's goals of care and as such agree with admission here and do not want to pursue any type of transfer. If she were to clinically worsen then patient will want to switch to [employer] goals at that time. Allergies Allergy/AdvReac Type Severity Reaction Status Date / Time metronidazole Allergy Unknown CAN'T Verified 07/14/24 13:53 REMEMBER simvastatin [From Zocor] Allergy Unknown CAN'T Verified 07/14/24 13:53 REMEMBER ciprofloxacin [From Cipro] AdvReac Intermediate vertigo Verified 07/14/24 13:53 Home Medications Medication Instructions Recorded Confirmed Type ujxfvep-[id number]-ksjiwugu 250 1 tab PO Q6H PRN Migraine Headache 05/05/24 07/31/24 History mg-250 mg-65 mg tablet (Excedrin Migraine) cholecalciferol (vitamin D3) 25 25 mcg PO .DAILY@79905/05/24 07/31/24 History mcg (1,000 unit) tablet (Vitamin D3) donepezil 10 mg tablet 10 mg PO .DAILY@189905/05/24 07/31/24 History losartan 50 mg tablet 50 mg PO .DAILY@79905/05/24 07/31/24 History memantine 10 mg tablet 10 mg PO DAILY@0800,1900 05/05/24 07/31/24 History naproxen sodium 220 mg tablet 220 mg PO Q12H PRN Pain 05/05/24 07/31/24 History potassium chloride 10 mEq 10 meq PO .DAILY@79905/05/24 07/31/24 History capsule,extended release quetiapine 25 mg tablet 25 mg PO .DAILY@189905/05/24 07/31/24 History rosuvastatin 10 mg tablet 10 mg PO .DAILY@79905/05/24 07/31/24 History sertraline 100 mg tablet 100 mg PO .DAILY@79905/05/24 07/31/24 History sertraline 50 mg tablet 50 mg PO .DAILY@79905/05/24 07/31/24 History valacyclovir 1 gram tablet 1,000 mg PO .DAILY@79905/05/24 07/31/24 History multivitamin 1 tab PO .DAILY@79906/11/24 07/31/24 History Past Med/Surg History Problem List (Updated 07/31/24 @ 16:06 by Radha Yepez MD) Fall from standing (Acute) Abdominal pain (Acute) Acute subdural hematoma (Acute) Right ureteral calculus History of diverticulitis Hypertension Depression Dementia Vitamin D insufficiency Chronic kidney disease, stage II (mild) Knee pain Anserine bursitis Gait abnormality Osteoporosis, unspecified Gait abnormality Cervicalgia Chronic osteoarthritis (Chronic) GERD without esophagitis (Chronic) Hyperlipidemia (Chronic) Left bundle branch block (Chronic) 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) Pre-diabetes (Chronic) Sensorineural hearing loss (SNHL) of both ears (Chronic) Atherosclerosis of both carotid arteries (Chronic) Hypokalemia (Chronic) Medical History Diverticulitis Hyperlipemia Other cervical disc displacement, mid-cervical region, unspecified level Dementia Abdominal pain, RUQ Carpal tunnel syndrome Chronic sinusitis Fatigue Hoarseness Other and unspecified hyperlipidemia Hypertrophy of both inferior nasal turbinates Primary osteoarthritis, unspecified hand Sleep apnea Stricture of cervix Kidney stones Migraines Vertigo Surgical History History of sinus surgery H/O ovarian cystectomy Status post medial meniscus repair Cervical vertebral fusion History of carpal tunnel surgery History of arthroplasty S/P excision of Flannery's neuroma History of shoulder surgery Family History Father Emphysema lung Asthma Sinusitis Mother Stroke syndrome Brother Stroke syndrome Epilepsy Esophageal cancer Sinusitis Coronary heart disease Sister Sinusitis Breast cancer Thoracic spinal stenosis Aunt Stroke Uncle Stroke Grandmother Cancer Denies family history of Ovarian cancer Prostate cancer Myocardial infarction Lung cancer Colorectal cancer Social History Smoking Status: Unknown if ever smoked Second Hand Exposure: No; Do You Dip or Chew Tobacco: No; Hx Substance Use: No Preferred Language: Northern Irish Communication Ability: Effective Communication Ability Comment: daughter reports decreased ability in last few months Visual Impairment: Limited Hearing Ability: Use of Hearing Aid Web Knitter Required: No Beliefs That Will Affect Care: None marital status: / Current Living Situation: Personal Care Facility Current Living Situation Comment: Lives at [facility] current occupational status: retired How many Children do You have: 3 Feels Safe at Home: Declines to Answer Childhood Exposure to Second-Hand Smoke: Yes (dad smoked in house ) caffeine: Yes (soda ) Dental Care, Regularly: Yes Physical Activity Frequency: Does not Exercise Seatbelt Use: always Sunscreen Use: Yes (sometimes ) Assistive Devices: None Physical Exam Physical Exam: General: Somnolent. Awakens transiently to voice. Denies pain. oriented to name only HEENT: Atraumatic, normocephalic. MAGDALENO.. Pulm: CTAB A&P. -wheezes, -rales, -rhonchi. Symmetrical chest rise. No increased work of breathing. No respiratory distress. Cardiac: RRR, -mrg. Radial pulses intact and symmetrical. Abdominal: Nontender, nondistended, soft. BS present. Results & Data Results & Data Vital Signs (Past 12 Hours) Vital Signs Temp Pulse Pulse Resp BP BP Pulse Ox 07/31/24 16:00 64 14 135/67 94 07/31/24 15:45 70 14 140/69 96 07/31/24 13:45 77 24 07/31/24 13:03 62 23 97 07/31/24 13:01 167/70 H 07/31/24 12:57 75 22 97 07/31/24 12:30 144/84 H 07/31/24 12:30 61 16 97 07/31/24 12:03 69 16 93 07/31/24 12:03 162/77 H 07/31/24 11:45 70 18 94 07/31/24 11:31 147/64 H 07/31/24 11:18 66 16 96 07/31/24 11:04 78 20 94 07/31/24 11:03 72 20 96 07/31/24 11:00 149/76 H 07/31/24 10:54 36.7 C 88 20 178/65 H 95 07/31/24 10:51 73 07/31/24 10:48 72 28 H 97 07/31/24 10:45 70 27 H 98 07/31/24 10:42 178/65 H 07/31/24 10:29 36.7 C 88 20 178/65 H 95 O2 Del Method 07/31/24 16:00 Room Air 07/31/24 15:45 Room Air 07/31/24 13:45 07/31/24 13:03 Room Air 07/31/24 13:01 07/31/24 12:57 Room Air 07/31/24 12:30 07/31/24 12:30 Room Air 07/31/24 12:03 07/31/24 12:03 07/31/24 11:45 Room Air 07/31/24 11:31 07/31/24 11:18 07/31/24 11:04 Room Air 07/31/24 11:03 07/31/24 11:00 07/31/24 10:54 Room Air 07/31/24 10:51 07/31/24 10:48 07/31/24 10:45 07/31/24 10:42 07/31/24 10:29 Room Air PG Care Time/CCT Total # of Minutes Spent Total Time Spent with Patient: Total time spent is greater than 50% in coordination of care (as documented) at patient's floor/unit and/or counseling patient: Coding Level of Care Code 14926 INT INP/OBS CARE 3/75MIN Diagnoses Fall from standing W19.XXXA Acute subdural hematoma S06.5XAA Dementia F03.90 Essential hypertension I10 Hypertension type: essential hypertension (4) Hypertension Hypertension type: essential hypertension Qualified Code(s): I10 - Essential (primary) hypertension
--- NOTE | 2024-07-31 18:51 | CT Scan Report ---
CT head/brain wo con CLINICAL HISTORY: repeat s/p 6 hours from fall with SDH Technique: Contiguous axial CT images of the head were acquired from the base of the skull to the paul beverly without intravenous contrast administration. Images were viewed in brain, subdural [facility]. Automated dose lowering techniques and/or adjustment according to patient size were utilized for this exam. Comparison: Comparison is made to CT head 07/31/2024 Findings: Interval stability of a 3 mm left subpectoral hemorrhage. No new hemorrhage is seen. Imaged portions of the paranasal sinuses and mastoid air cells are clear. The orbits appear normal. There are no acute fractures of the calvaria or scalp swelling. Impression: Stable trace left subdural hemorrhage. No new hemorrhage is seen. ACT 112: Negative or not required by law. Electronically signed by: Jaime Thurston M.D. 07/31/2024 6:50 PM
[2024-07-31] MEDS ORDERED: LORazepam 2 MG/1 ML VIAL IV PRN (21:13)
[2024-07-31] MEDS: PNEUMOCOCCAL VACCINE (PCV20) 20-VAL CONJ-DIP CRM/PF 0.5 ML SYR IM ONE (21:42)
[2024-07-31] MEDS ORDERED: NAPROXEN 250 MG TAB PO PRN (21:46)
[2024-07-31] MEDS: QUEtiapine FUMARATE 25 MG TABLET PO SCH (21:48)
[2024-07-31] MEDS: MEMANTINE HCL 10 MG TAB PO SCH (21:48)
[2024-07-31] MEDS: DONEPEZIL HCL 10 MG TAB PO SCH (21:48)
--- NOTE | 2024-07-31 22:44 | Electrocardiogram Report ---
Test Reason : Blood Pressure : */* mmHG Vent. Rate : 68 BPM Atrial Rate : 68 BPM P-R Int : 178 ms QRS Dur : 124 ms QT Int : 452 ms P-R-T Axes : 66 -5 91 degrees QTcB Int : 480 ms Normal sinus rhythm Left bundle branch block Abnormal ECG When compared with ECG of 11-Jun-2024 12:57, Premature ventricular complexes are no longer Present Confirmed by Regino Jefferson ([id number]) on 07/31/2024 10:44:04 PM Referred By: REFERRED SELF Confirmed By: Regino Jefferson
[2024-07-31] MEDS: SODIUM CHLORIDE 0.9% 250 ML IV ONE (23:14)
[2024-08-01] MEDS: SERTRALINE HCL 100 MG TABLET PO SCH (07:49)
[2024-08-01] MEDS: ROSUVASTATIN CALCIUM 10 MG TAB PO SCH (07:49)
[2024-08-01] MEDS: MULTIVITAMIN TAB PO SCH (07:49)
[2024-08-01] MEDS: POTASSIUM CHLORIDE 10 MEQ TABCR PO SCH (07:49)
[2024-08-01] MEDS: LOSARTAN POTASSIUM 50 MG TAB PO SCH (07:49)
[2024-08-01] MEDS: CHOLECALCIFEROL 25 MCG (1000 UNITS) TAB PO SCH (07:49)
[2024-08-01] MEDS: SERTRALINE HCL 50 MG TABLET PO SCH (07:49)
--- NOTE | 2024-08-01 10:01 | Hospitalist Progress Note ---
Date of Service August 01, 2024 Assessment & Plan (1) Fall from standing: (2) Acute subdural hematoma: (3) Dementia: (4) Hypertension: Plan # Fall CThead with trace subdural hematoma Repeat CT: Stable CTC-spine: No bony injury Left knee x-ray: No acute findings Right knee x-ray: No acute findings CTA/P: No acute traumatic findings of the abdomen/pelvis # Acute subdural hematoma: Trace subdural hematoma, traumatic. Stable on interval imaging. Was of care reviewed with patient and her family. Does not desire transfer where surgical services are available for worsening, patient would want comfort measures if she were to clinically deteriorate Seizure prophylaxis deferred. No prior history of seizure, no evidence of seizure activity Patient is not on any anticoagulants or blood thinners requiring reversal # Dementia Continue donepezil/memantine Continue Seroquel, sertraline # Hypertension Continue losartan Dispo DVT prophylaxis: Pharmacal prophylaxis contraindicated in setting of subdural hematoma CODE STATUS: DNR/DNI Disposition: PCU Admission and Anticipated Discharge Date Admission Date: July 31, 2024 Supervising Physician Co-Signing Physician Notes I personally examined the patient and verified all menjivar points of history and exam, discussed case, and agree with decision making with Dr Jordan Seems to be feeling okay. No headache. Daughter present at the bedside and voices no concerns. Updated patient and daughter to the best my ability. Vitals noted, in general she is awake and alert pleasant no distress. Breathing unlabored no accessory muscle use good effort. Skin without rashes pallor or icterus. No focal neurodeficits. Small traumatic subdural hematomaappears to be clinically stable. Radiographically stable yesterday. PT/OT eval and treat. At the bedside seems like she is likely to be appropriate for return to personal care. Follow into tomorrow. Pharmacologic DVT prophylaxis obviously contraindicated due to subdural hematoma Subjective Patient seen and evaluated at bedside this morning. No acute events overnight. No acute complaints or concerns this am. States feeling well and desires dc Review of Systems Review of Systems: reviewed, per HPI Physical Exam Physical Exam: Constitutional: well-appearing, no acute distress HEENT: NCAT, no conjunctival injection CV: clinically well perfused Resp: no increased WOB GI: non-distended MSK: no gross deformities appreciated Skin: warm, dry, no rash appreciated Neuro: alert, no focal neurologic deficit appreciated Results & Data Results & Data Vital Signs (Past 12 Hours) Vital Signs Temp Pulse Pulse Pulse Resp BP BP 08/01/24 07:18 36.6 C 59 L 19 128/63 08/01/24 00:12 61 90/55 L 07/31/24 23:23 36.6 C 65 18 95/57 L 94/53 L 07/31/24 22:07 71 Pulse Ox O2 Del Method 08/01/24 07:18 94 Room Air 08/01/24 00:12 07/31/24 23:23 94 Room Air 07/31/24 22:07 Resident Activity Tracking Resident Involvement: Resident Care Provided Care Provided: Adult Hospital Medicine (4) Hypertension Hypertension type: essential hypertension Qualified Code(s): I10 - Essential (primary) hypertension
--- NOTE | 2024-08-01 14:13 | Billing Data ---
Date of Service August 01, 2024 Coding Level of Care Code 09538 SUB INP/OBS CARE
[2024-08-01] MEDS: ACETAMINOPHEN 325 MG TAB PO PRN (15:57)
[2024-08-01] MEDS ORDERED: LORazepam 2 MG/1 ML VIAL IV PRN (17:29)
--- NOTE | 2024-08-01 17:41 | CT Scan Report ---
CT SCAN OF THE BRAIN WITHOUT IV CONTRAST CLINICAL HISTORY: Change in mental status. Subdural hemorrhage. COMPARISON STUDY: CT scans of the brain dated 07/31/2024. TECHNIQUE: Unenhanced axial CT scan of the brain is performed from the vertex to the skull base. A do se lowering technique was utilized adhering to the principles of ALARA. FINDINGS: Brain parenchyma: PA and seen is trace acute subdural hemorrhage along the left convexity. This is be st seen on axial image #16 and measures up to 3 mm in thickness. There is no associated mass effect. No additional foci of acute hemorrhage are identified. There is age-related involutional change notin g [id number]-tn-[id number] subcortical and periventricular microangiopathic disease. There is no midline shif t or evidence of acute territorial ischemia by CT criteria. Peñaloza-white matter differentiation is pres erved. There is a tiny chronic lacunar infarct in the left cerebellar hemisphere. Ventricles, sulci, cisterns: Prominent secondary to involutional change. Intracranial vasculature: There is atherosclerotic calcification of the cavernous carotid and vertebr al arteries. Calvarium: The skeletal structures are osteopenic. No depressed calvarial fracture is seen. Sinuses and mastoids: The visualized paranasal sinuses are clear. The mastoid air cells are well pneu matized. Orbits: The bony orbits are grossly intact. There are bilateral ocular lens implants. IMPRESSION: 1. There is unchanged appearance of trace subdural hemorrhage along the left convexity. There is no a ssociated mass effect. 2. No new or enlarging hemorrhage is seen. 3. There is no midline shift or evidence of acute territorial ischemia by CT criteria. ACT 112: Negative or not required by law. Electronically signed by: Reggie Hogan M.D. 08/01/2024 5:38 PM
--- NOTE | 2024-08-02 10:25 | Hospitalist Progress Note ---
Date of Service August 02, 2024 Assessment & Plan (1) Fall from standing: (2) Acute subdural hematoma: (3) Dementia: (4) Hypertension: Plan # Fall CThead with trace subdural hematoma Repeat CT: Stable CTC-spine: No bony injury Left knee x-ray: No acute findings Right knee x-ray: No acute findings CTA/P: No acute traumatic findings of the abdomen/pelvis - PT/OT # Acute subdural hematoma: Trace subdural hematoma, traumatic. Stable on interval imaging. Was of care reviewed with patient and her family. Does not desire transfer where surgical services are available for worsening, patient would want comfort measures if she were to clinically deteriorate Seizure prophylaxis deferred. No prior history of seizure, no evidence of seizure activity Patient is not on any anticoagulants or blood thinners requiring reversal # Dementia Continue donepezil/memantine Continue Seroquel, sertraline # Hypertension Continue losartan Dispo DVT prophylaxis: Pharmacal prophylaxis contraindicated in setting of subdural hematoma CODE STATUS: DNR/DNI Disposition: PCU Admission and Anticipated Discharge Date Admission Date: July 31, 2024 Supervising Physician Co-Signing Physician Notes I personally examined the patient and verified all menjivar points of history and exam, discussed case, and agree with decision making with Dr Jordan son present. no new problems today. pt mostly resting during the time i am in the room. Vitals noted, in general she is resting and in no distress. Breathing unlabored no accessory muscle use good effort. Skin without rashes pallor or icterus. No focal neurodeficits. Small traumatic subdural hematomaappears to be clinically stable. Radiographically stable again yesterday - d/w family AMS almost certainly delirium. PT/OT eval and treat. hopefully can return to [facility] tomorrow after PT eval and as long as [facility] can take her back - but expect this will likely be the case. Pharmacologic DVT prophylaxis obviously contraindicated due to subdural hematoma Subjective Patient seen and evaluated at bedside this morning. No acute events overnight. No acute complaints or concerns this am. States feeling well Review of Systems Review of Systems: reviewed, per HPI Physical Exam Physical Exam: Constitutional: well-appearing, no acute distress HEENT: NCAT, no conjunctival injection CV: clinically well perfused Resp: no increased WOB GI: non-distended MSK: no gross deformities appreciated Skin: warm, dry, no rash appreciated Neuro: alert, no focal neurologic deficit appreciated Results & Data Results & Data Vital Signs (Past 12 Hours) Vital Signs Temp Pulse Resp BP Pulse Ox O2 Del Method 08/02/24 08:19 36.6 C 67 18 141/75 H 95 Room Air 08/02/24 04:00 36.6 C 61 18 126/70 93 Room Air 08/01/24 23:29 Room Air 08/01/24 23:09 36.5 C 62 18 119/68 95 Room Air Resident Activity Tracking Resident Involvement: Resident Care Provided Care Provided: Adult Hospital Medicine (4) Hypertension Hypertension type: essential hypertension Qualified Code(s): I10 - Essential (primary) hypertension
--- NOTE | 2024-08-02 15:52 | Billing Data ---
Date of Service August 02, 2024 Coding Level of Care Code 86502 SUB INP/OBS CARE
[2024-08-02 20:00] VITALS: RESP 18
[2024-08-03 04:13] VITALS: TEMP 97.9; O2SAT 93
--- NOTE | 2024-08-03 16:07 | Discharge Summary ---
Date of Service August 03, 2024 Admission HPI Per Admitting Provider Brunilda "Kathleen Mujica is an 84-year-old female with a history of CKD, dementia who is a dementia unit resident to reportedly was running to escape sat unit when she tripped and fell landing on her knees and striking her head. Patient is confused and unable to provide history at bedside to ER provider. CThead shows a trace subdural hemorrhage along the left convexity, no midline shift or ischemia. Case was reviewed with patient's family by the ER provider who were clear that patient would not want surgical interventions under any circumstance and including if her scans were to worsen. 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 As such patient was subsequently referred for admission with an interval CT to be performed at 1630 hrs. Seen at the bedside with her son present. History is limited by dementia, patient is a dementia unit resident. Reportedly was running from the unit when she tripped and fell and struck her head. At time bedside she is in no acute distress, awakens easily and is pleasant but a poor historian and falls back asleep. On afternoon reassessment she is much more alert. Prominent memory issues but is oriented to name. Denies pain. Pleasantly confused. Reviewed case extensively with patient's son. They report that he had discussed with the ER regarding management and potential goals and they are understanding that the brain bleed was fairly small and was unlikely to require transfer. Did discuss that while unlikely a brain bleed is a potentially life-threatening and catastrophic event for which if a patient is to have surgical intervention time is a critical factor and delays with thing such as transport or [employer] being unable to fly can cause significant delays and typically if there is a concern that a bleed is acute or could worsen a patient that might want surgical intervention will typically be transferred to a facility where those services are available. Her son expresses a appreciation of this conversation and notes he was not completely aware of this part of the decision making. After considering this son notes that if she were to have a worsening bleed that aggressive surgical mentions and hematoma evacuation are not something that would be within Cornelia's goals of care and as such agree with admission here and do not want to pursue any type of transfer. 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 Admission Exam Per Admitting Provider General: Somnolent. Awakens transiently to voice. Denies pain. oriented to n osei only HEENT: Atraumatic, normocephalic. MAGDALENO.. Pulm: CTAB A&P. -wheezes, -rales, -rhonchi. Symmetrical chest rise. No increased work of breathing. No respiratory distress. Cardiac: RRR, -mrg. Radial pulses intact and symmetrical. Abdominal: Nontender, nondistended, soft. BS present. Principal Diagnosis Mechanical fall resulting in Subdural Hematoma Discharge Exam General: awake and alert, afebrile, NAD CV: RRR no r/m/g Pulm: CTA b/l, normal respiratory effort GI: soft, non distended, non tender MSK: able to move both arms and legs symmetrically, no swelling or calf tenderness in b/l lE Discharge Data Allergies Allergy/AdvReac Type Severity Reaction Status Date / Time metronidazole Allergy Unknown CAN'T Verified 07/14/24 13:53 REMEMBER simvastatin [From Zocor] Allergy Unknown CAN'T Verified 07/14/24 13:53 REMEMBER ciprofloxacin [From Cipro] AdvReac Intermediate vertigo Verified 07/14/24 13:53 Consultations 07/31/24 16:05 ED Decision to Admit Stat Ordered Studies 07/31/24 11:04 CT Abd and Pelvis [CT abd pelvis IV con only] Stat CT cervical spine wo con Stat CT head/brain wo con Stat 07/31/24 16:07 CT head/brain wo con Stat 08/01/24 16:52 CT head/brain wo con Stat Hospital Course (1) Fall from standing: (2) Acute subdural hematoma: (3) Dementia: (4) Hypertension: Plan # Fall # Acute Subdural Hematoma CThead with trace subdural hematoma, which was stable in repeat CT CTC-spine: No bony injury Left knee x-ray: No acute findings Right knee x-ray: No acute findings CTA/P: No acute traumatic findings of the abdomen/pelvis Plan of care reviewed with patient and her family. Did not desire transfer where surgical services are available for worsening, patient would want comfort measures if she were to clinically deteriorate - PT stated patient was okay to return to [facility]. Will discharge back to [facility] today. # Dementia Continue donepezil/memantine Continue Seroquel, sertraline # Hypertension Continue losartan Will discharge to [facility] today. Total Time Total Time Spent Total Time Spent (In Minutes): As per attending attestation. Discharge Plan Discharge Items Patient Disposition: Personal Residential Reason For Visit: FALL, SUBDURAL STABLE ON REPEAT IMAGING Discharge Diagnosis: Fall, Stable Subdural Hematoma Activity: Per Instructions section Non-emergency contact: Primary Care Provider Call non-emergency contact if: your symptoms worsen, your pain is worsening and your temperature is above 101 [facility] [place] [facility] - Diet: Regular Addtl Attending Provider Instructions: You were admitted after sustaining a fall that resulted in a small blood accumulation in your head, this is called a subdural hematoma. After discussing with you and your family with regards to goals and plan of care, no surgical intervention was pursued. Given that repeat CT of your head did not show significant change in size and physical therapy believed you to be fit to return to [facility] [place], we will be discharging you today to return to the Personal Residential. A discharge summary will be sent to your primary care physician to ensure continuity of care. Please bring this discharge summary with you to your next office appointment so that your provider can review it at that time. Follow-up appointments: Keep all your follow-up appointments as already scheduled. If you cannot make an appointment, notify your provider. Medications: Your medication list has been reviewed and reconciled upon discharge to ensure accuracy and continuity of care. An updated list of all your medications is included with your hospital discharge paperwork. Please review this list closely, and make note of any changes. Take your medications as instructed; do not skip a dose of your medicines. Make sure all of your doctors know every medicine you are taking (including llef-wgs-xudulij medicines, vitamins, and supplements). Call your primary care provider before taking any new medicines (including over- the-counter medicines, vitamins, and supplements), because some of these may interact with your current medications, or may make your symptoms worse. Tell your primary care provider if you cannot afford your medications. CONTACT YOUR PRIMARY CARE PROVIDER if you experience any of the following: Worsening of symptoms Fever, chills, or fatigue Difficulty following your treatment plan, or difficulty taking medications CALL 911 OR GO TO THE EMERGENCY DEPARTMENT if you experience any of the following: Sudden, severe abdominal pain or nausea/vomiting Severe chest pain, or chest pain that radiates (moves) to your jaw or arm Sudden, severe shortness of breath or difficulty breathing Thank you for allowing us to participate in your care. Pending Studies at Discharge: No Stand-Alone Forms: [facility] PF, Smoking Cessation Skilled Items Patient informed of condition?: Yes DNR: Yes Discharge Level of Care: Other Communicable Disease: No Discharge Prognosis: Stable Lines: None Urinary Catheter: No Medications and DC Order Prescriptions: Continued multivitamin Tablet 1 tab PO .DAILY@0800 losartan 50 mg Tablet 50 mg PO .DAILY@0800 quetiapine 25 mg tablet 25 mg PO .DAILY@1900 potassium chloride 10 mEq Capsule, Extended Release 10 meq PO .DAILY@0800 valacyclovir 1 gram Tablet 1,000 mg PO .DAILY@0800 donepezil 10 mg Tablet 10 mg PO .DAILY@1900 sertraline 100 mg Tablet 100 mg PO .DAILY@0800 Rx Instructions: Take 100mg w/ 50mg tablet to equal 150mg by mouth every morning. naproxen sodium 220 mg Tablet 220 mg PO Q12H PRN (Reason: Pain) sertraline 50 mg Tablet 50 mg PO .DAILY@0800 Rx Instructions: Take 50mg w/ 100mg tablet to equal 150mg by mouth every morning. Excedrin Migraine 250-250-65 mg Tablet 1 tab PO Q6H PRN (Reason: Migraine Headache) rosuvastatin 10 mg Tablet 10 mg PO .DAILY@0800 memantine 10 mg Tablet 10 mg PO DAILY@0800,1900 cholecalciferol (vitamin D3) [Vitamin D3] 25 mcg (1,000 unit) Tablet 25 mcg PO .DAILY@0800 Discharge Orders: Discharge Order (Routine); Ordered 08/03/24 Ordered By: Giselle Odom Admission Data Admit Date/Time: 07/31/24 20:08 Attending Provider: Cory Ga Admit Provider: Leonidas Burris Primary Care Provider: Jasmin Chase Other Providers: Leonidas Burris Other Interventions: Discharge Summary Assessment (RN) Last Done: 08/03/24 16:15 Supervising Physician Co-Signing Physician Notes Attending attestation Pt seen and examined in concert with Dr. Odom. In agreement with the documented findings as noted in the resident documentation with any exceptions or additions as noted here. Resting comfortably in bed without complaint at mental status baseline per son at bedside. On examination, S1/S2 nl RRR no MCG. CTAB. Abd NT/ND BS+ve Acute subdural hematoma s/p fall - returned to baseline per spouse - agree w/ return [facility] Else see resident documentation as noted. Total attending physician time spent with this patient's care on the day of discharge: 32 minutes. Resident Activity Tracking Resident Involvement: Resident Care Provided Care Provided: Adult Hospital Medicine
[2024-08-03 16:16] VITALS: BP 110/66; PULSE 64
== END 2024-08-03 16:58 | disposition home or self-care (01) | DRG 87 ==
LOC: ED 10:37 → SUATTDRO 20:08 → 2S 20:08 → INTOOBSV 20:08 → 2S 21:03 → 2W 08-01 18:41

== ENCOUNTER 2025-01-18 22:04 | Inpatient (IN) ==
[2025-01-18 22:25] VITALS: TEMP 98.1
--- NOTE | 2025-01-18 22:37 | Emergency Department Note ---
Impression & Plan Torsades de pointes, Dementia, Ventricular tachycardia, Fall, Closed fracture of right clavicle, Acute head trauma ED Provider Note NAME: VERN ISLAS AGE: 84 SEX: F : 1940 ARRIVES VIA: Ambulance INFORMANT: [Patient][ems, son] ED PROVIDER(S): [Reggie Carlos MD] CHIEF COMPLAINT: Fall HISTORY OF PRESENT ILLNESS: The patient is an 84-year-old female with dementia. She by report, had an unwitnessed fall today. She struck the right side of her head. She was complaining of neck pain, back pain, right shoulder pain and some abdominal pain. She was brought for evaluation. Of note, she is not on blood thinning agents. In route, she received a small amount of IV fentanyl without relief of discomfort. She has been falling more lately. As per the son, she was evaluated for a fall about 3 weeks ago. PMHx/PSHx/Social Hx: See Below PHYSICAL EXAM: Primary Survey Airway: Intact Breathing: Breath sounds equal bilaterally. No respiratory distress Circulation: Skin warm, capillary refill less than 2 seconds Disability: Pupils equal and reactive to light Motor Function: Moves all extremities. Sensory: No deficits Secondary Survey GEN: Well developed and well-nourished HEAD: The patient does have a hematoma forming to the right temporal scalp. No laceration requiring repair. EYES: Pupils round and reactive to light, conjunctiva clear, extraocular movements intact ENT: No fluid in external acoustic canals, nares patent, oropharynx clear NECK: Midline trachea, stiff collar in place. HEART: Regular rate and rhythm. Heart tones distant. LUNGS: Clear to auscultation bilaterally CHEST: Chest wall non-tender, no bruising/deformity ABD: No contusions, soft, diffusely tender, no significant distention. No contusions. PELVIS: Stable to rock BACK: No step offs or deformities. EXT: She is quite painful with palpation of the right shoulder. There is no dislocation clinically. Movement of this right shoulder causes discomfort. No evidence for right upper extremity neurovascular compromise. NEURO: Awake, anxious, moves all extremities. DIFFERENTIAL DIAGNOSIS: Intracranial bleeding, spinal injury, chest or abdominal trauma, shoulder dislocation or fracture. Anemia, dysrhythmia, among others. EMERGENCY DEPARTMENT PROCEDURES: Cervical spine was clinically cleared at 0140. MEDICAL DECISION MAKING: There is no leukocytosis or worrisome anemia. There is a normal platelet count. No coagulopathy. No renal failure or significant electrolyte abnormality. No concerning liver enzyme elevation. No pancreatitis. ECG showed a type II second-degree AV block. The rate was slow at around 45. No ST elevation or evidence for acute ischemia. Cardiac enzyme testing x 1 was not consistent with acute cardiac injury. Urinalysis is pending. Chest x-ray portable did not show any acute traumatic injury to the chest, no pneumonia. Pelvis film did not show any acute fracture or hip dislocation. Right shoulder film showed a right distal clavicle fracture. No humeral head fracture or dislocation. Patient was ordered for IV morphine for pain, IV Zofran for nausea. She eventually received a dose of IV Phenergan for additional nausea control. She was given a 500 cc saline bolus. She had a right arm sling placed. The patient during her stay had a run of torsades and ventricular tachycardia. She was unresponsive. A code was called. The patient underwent CPR for a few seconds. She very quickly regained spontaneous circulation when the ventricular tachycardia resolved. She became interactive and never required any type of airway support. With the findings of ventricular tachycardia and torsades, she was given 2 g of IV magnesium over 10 to 15 minutes. She received a bolus of IV amiodarone and was placed on amiodarone drip. I talked about the patient's dysrhythmia with the son. He spoke with his family. The patient is to be a DNR. No additional CPR is to be performed, she is to be made comfortable. She is not to be intubated. CT imaging was performed given her trauma. Brain CT showed no acute bleed or mass effect. C-spine CT showed no acute fracture. Lumbar spine CT showed no acute fracture. Thoracic spine CT showed no acute fracture. CT of the chest, abdomen pelvis did not show any acute traumatic injury. The patient is more comfortable since being medicated with morphine. She is more comfortable since having the right arm placed in a sling. Patient very likely had her fall today because of dysrhythmia. As per the son, she has been falling lately and certainly, the falls may be cardiac in etiology. In short, no serious trauma from the fall. She has a distal right clavicle fracture which should heal with conservative measures only. There has been no recurrence of the torsades or V. tach since the administration of the magnesium and the initiation of the amiodarone drip. She has been showing a type II second degree AV block but is asymptomatic with this bradycardic rhythm. She is not hypotensive. Admission is warranted. I spoke with the correctional case records supervisor. I spoke with the on- call hospitalist. Prior/Outside records/notes reviewed: Today's EMS notes describing her presentation and transport to this hospital. ECG per my interpretation: Indication was fall. The ECG shows a type II second-degree AV block. Every other atrial beat is not conducted. 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 No acute ST elevation. QTc was 430. Continuous Cardiac Monitoring per my interpretation: An order was placed for continuous cardiac monitoring. The monitor shows a rate of 45 with type II secondary AV block. Imaging/x-ray results per my interpretation: Chest x-ray shows some chronic change, there was no acute rib fracture or pneumothorax. Pelvis film did not show any acute fracture or hip dislocation. Right shoulder film showed a distal right clavicle fracture. There was no humeral fracture or dislocation to the humeral head. Chronic Medical/Social conditions affecting care: Dementia, advanced age. Care/Management discussed with: Case management, the on-call hospitalist. Level of care consideration(s): After review of the information above and other included data: --I believe the patient requires escalation of care to admission Critical Care Note: I have personally spent 63 minutes of critical care time in the direct management of this patient. This includes bedside care, interpretation of diagnostic studies, and testing, discussion with consultants, patient, and family members, and other required patient management activities. This 63 minutes is in excess of all separately billable procedures. DISPOSITION: Admission Past Med/Surg History Problem List Acute head trauma (Acute) Closed fracture of right clavicle (Acute) Fall (Acute) Ventricular tachycardia (Acute) Dementia (Acute) Torsades de pointes (Acute) Renal cyst (Chronic) Kidney stones (Chronic) Nausea & vomiting (Acute) Abdominal pain (Acute) Fall from standing (Acute) Hyperlipidemia Depression Essential (primary) hypertension Unresponsive episode (Acute) Constipation (Acute) Abdominal pain Dementia (Acute) Depression Vitamin D insufficiency Chronic kidney disease, stage II (mild) Osteoporosis, unspecified Chronic osteoarthritis (Chronic) GERD without esophagitis (Chronic) Hyperlipidemia (Chronic) Left bundle branch block (Chronic) Pre-diabetes (Chronic) Sensorineural hearing loss (SNHL) of both ears (Chronic) Atherosclerosis of both carotid arteries (Chronic) Medical History Right ureteral calculus Osteoporosis Atherosclerosis Fall from standing Abdominal pain Acute subdural hematoma History of diverticulitis Dementia Knee pain Anserine bursitis Gait abnormality Gait abnormality Cervicalgia Hypertension Osteopenia after menopause Hypokalemia Kidney stone on right side Diverticulitis Hyperlipemia Other cervical disc displacement, mid-cervical region, unspecified level Dementia Abdominal pain, RUQ Carpal tunnel syndrome Chronic sinusitis Fatigue Hoarseness Other and unspecified hyperlipidemia Hypertrophy of both inferior nasal turbinates Primary osteoarthritis, unspecified hand Sleep apnea Stricture of cervix Migraines Vertigo Surgical History (System 09/21/24 @ 11:14 by Sandra Harper) History of sinus surgery H/O ovarian cystectomy Status post medial meniscus repair Cervical vertebral fusion History of carpal tunnel surgery History of arthroplasty S/P excision of Flannery's neuroma History of shoulder surgery Family History Father Emphysema lung Asthma Sinusitis Mother Stroke syndrome Brother Stroke syndrome Epilepsy Esophageal cancer Sinusitis Coronary heart disease Sister Sinusitis Breast cancer Thoracic spinal stenosis Aunt Stroke Uncle Stroke Grandmother Cancer Denies family history of Ovarian cancer Prostate cancer Myocardial infarction Lung cancer Colorectal cancer Social History Smoking Status: Never smoker Second Hand Exposure: No; Do You Dip or Chew Tobacco: No; Hx Alcohol Use: No Hx Substance Use: No Preferred Language: Occitan Communication Ability: Effective Communication Ability Comment: daughter reports decreased ability in last few months Visual Impairment: Limited Hearing Ability: Use of Hearing Aid Dishwasher Preparer Required: No Beliefs That Will Affect Care: None marital status: / Current Living Situation: [facility] Current Living Situation Comment: [facility] current occupational status: retired How many Children do You have: 3 Feels Safe at Home: Yes Childhood Exposure to Second-Hand Smoke: Yes (dad smoked in house ) caffeine: Yes (soda ) Dental Care, Regularly: Yes Physical Activity Frequency: Does not Exercise Seatbelt Use: always Sunscreen Use: Yes (sometimes ) Assistive Devices: None and Cane Allergies Allergies Allergy/AdvReac Type Severity Reaction Status Date / Time metronidazole Allergy Unknown CAN'T Verified 01/18/25 23:32 REMEMBER simvastatin [From Zocor] Allergy Unknown CAN'T Verified 01/18/25 23:32 REMEMBER ciprofloxacin [From Cipro] AdvReac Intermediate vertigo Verified 01/18/25 23:32 Home Meds Home Medications Medication Instructions Recorded Confirmed [id number] 250 1 tab PO Q6H PRN Migraine Headache 05/05/24 01/18/25 mg-250 mg-65 mg tablet (Excedrin Migraine) cholecalciferol (vitamin D3) 25 25 mcg PO QAM 05/05/24 01/18/25 mcg (1,000 unit) tablet (Vitamin D3) donepezil 10 mg tablet 10 mg PO QPM 05/05/24 01/18/25 naproxen sodium 220 mg tablet 220 mg PO Q12H PRN Pain 05/05/24 01/18/25 quetiapine 25 mg tablet 37.5 mg PO .DAILY @ 1700 05/05/24 01/18/25 rosuvastatin 10 mg tablet 10 mg PO QAM 05/05/24 01/18/25 multivitamin 1 tab PO QAM 06/11/24 01/18/25 memantine 10 mg tablet 10 mg PO BID 09/13/24 01/18/25 potassium chloride 10 mEq 10 meq PO QAM 09/13/24 01/18/25 capsule,extended release quetiapine 25 mg tablet 12.5 mg PO QAM 09/13/24 01/18/25 valacyclovir 1 gram tablet 1,000 mg PO QAM 09/13/24 01/18/25 polyethylene glycol 3350 17 17 g PO DAILY PRN Constipation 01/18/25 01/18/25 gram/dose oral powder (Miralax) sennosides 8.6 mg tablet (senna) 8.6 mg PO QAM 01/18/25 01/18/25 Results & Data (ED) Vital Signs Vital Signs - 24 hr 01/18/25 22:10 01/18/25 22:13 01/18/25 22:14 Temperature 36.7 C Temperature Source Temporal Artery Scan Pulse Rate 87 47 L 45 L Pulse Rate [Apical] Pulse Rhythm [Apical] Pulse Strength [Apical] Respiratory Rate 18 Respiratory Effort / Characteristics Respiratory Depth Respiratory Pattern Blood Pressure 156/102 H Blood Pressure [Left Arm] Blood Pressure Mean 120 Blood Pressure Mean [Left Arm] Blood Pressure Position [Left Arm] Pulse Oximetry 99 Oxygen Delivery Method Room Air Oxygen Flow Rate Sepsis Recent Fever Within 48 Hours No Sepsis New/Unexplained Change in Mental Status No Sepsis Action Taken by Nursing No Action Required 01/18/25 22:31 01/18/25 22:36 01/18/25 22:54 Temperature Temperature Source Pulse Rate 46 L 45 L Pulse Rate [Apical] Pulse Rhythm [Apical] Pulse Strength [Apical] Respiratory Rate 24 20 Respiratory Effort / Characteristics Respiratory Depth Respiratory Pattern Blood Pressure 150/97 H Blood Pressure [Left Arm] Blood Pressure Mean 135 Blood Pressure Mean [Left Arm] Blood Pressure Position [Left Arm] Pulse Oximetry 97 97 Oxygen Delivery Method Room Air Room Air Oxygen Flow Rate Sepsis Recent Fever Within 48 Hours Sepsis New/Unexplained Change in Mental Status Sepsis Action Taken by Nursing 01/18/25 23:01 01/18/25 23:08 01/18/25 23:09 Temperature Temperature Source Pulse Rate 62 107 H Pulse Rate [Apical] Pulse Rhythm [Apical] Pulse Strength [Apical] Respiratory Rate 17 Respiratory Effort / Characteristics Respiratory Depth Respiratory Pattern Blood Pressure 169/103 H Blood Pressure [Left Arm] Blood Pressure Mean 121 Blood Pressure Mean [Left Arm] Blood Pressure Position [Left Arm] Pulse Oximetry Oxygen Delivery Method Oxygen Flow Rate Sepsis Recent Fever Within 48 Hours Sepsis New/Unexplained Change in Mental Status Sepsis Action Taken by Nursing 01/18/25 23:21 01/19/25 00:00 Temperature Temperature Source Pulse Rate 44 L Pulse Rate [Apical] 46 L Pulse Rhythm [Apical] Irregular Pulse Strength [Apical] Normal Respiratory Rate 20 16 Respiratory Effort / Characteristics Non-Labored Spontaneous Respiratory Depth Normal Respiratory Pattern Regular Blood Pressure Blood Pressure [Left Arm] 138/54 L Blood Pressure Mean Blood Pressure Mean [Left Arm] 82 Blood Pressure Position [Left Arm] Lying Pulse Oximetry 93 91 Oxygen Delivery Method Room Air Nasal Cannula Oxygen Flow Rate 3 Sepsis Recent Fever Within 48 Hours Sepsis New/Unexplained Change in Mental Status Sepsis Action Taken by [facility] Medications Current Medication List: was personally reviewed by me Laboratory Data Attestation: I reviewed the patient's lab results. 01/18/25 22:25 01/18/25 22:25 Lab Results 01/18/25 01/18/25 Range/Units 22:25 22:32 WBC 7.74 (4.8-10.8) K/ul RBC 4.54 (4.20-5.40) M/uL Hgb 14.7 (12.0-16.0) g/dl POC Hgb 13.9 (12.0-16.0) g/dl Hct 40.6 (37.0-47.0) % POC Hct 41 (37-47) % MCV 89.4 (80.0-100.0) fL MCH 32.4 (25.0-34.0) pg MCHC 36.2 H (32.0-36.0) g/dL RDW Std Deviation 41.1 (36.4-46.3) fL RDW Coeff of Major 12.5 (11.5-14.5) % Plt Count 195 (130-400) K/uL MPV 9.3 L (9.4-12.4) fL Immature Gran % (Auto) 0.4 % Neut % (Auto) 70.8 % Lymph % (Auto) 20.9 % [place] % (Auto) 6.6 % Eos % (Auto) 0.8 % Baso % (Auto) 0.5 % Neut # (Auto) 5.48 (1.40-6.50) K/uL Lymph # (Auto) 1.62 (1.20-3.40) K/uL [place] # (Auto) 0.51 (0.11-0.59) K/uL Eos # (Auto) 0.06 (0.00-0.50) K/uL Baso # (Auto) 0.04 (0.00-0.20) K/uL Immature Gran # (Auto) 0.03 (0.01-0.20) K/uL PT 11.1 (9.0-12.0) Seconds INR 1.0 (0.9-1.1) APTT 25 (21-31) Seconds PTT Ratio 0.9 POC Sodium 141 (135-144) mmol/L Sodium 139 (136-145) mmol/L POC Potassium 3.5 (3.3-5.0) mmol/L Potassium 3.6 (3.5-5.1) mmol/L POC Chloride 104 (101-112) mmol/L Chloride 105 (98-107) mmol/L Carbon Dioxide 24 (21-32) mmol/L POC Total CO2 23 L (24-31) mmol/L Anion Gap 10 (3-11) POC Anion Gap 18.0 (16-25) mmol/L POC BUN 16 (7-18) mg/dl BUN 16 (6-23) mg/dl Creatinine 0.85 (0.6-1.2) mg/dl POC Creatinine 0.8 (0.6-1.3) mg/dl Est Cr Clr Drug Dosing 46.3 ml/min eGFR 66.68 BUN/Creatinine Ratio 18.8 (10-20) Glucose 114 H (70-99(Fasting)) mg/dl POC Glucose (other) 112 H (70-99) mg/dl Calcium 9.7 (8.6-10.3) mg/dl POC Ioniz Calcium Celine 1.11 L (1.12-1.32) mmol/l Magnesium 1.9 (1.7-2.4) mg/dl Total Bilirubin 0.5 (0.2-1.0) mg/dl AST 20 (13-39) U/L ALT 16 (7-52) U/L Alkaline Phosphatase 85 (34-104) U/L Troponin I High Sens 8.5 (0-14) pg/ml Total Protein 7.0 (6.0-8.3) gm/dl Albumin 4.4 (3.4-5.0) gm/dl Globulin 2.6 (2.5-4.0) gm/dl Albumin/Globulin Ratio 1.7 (0.9-2) Lipase 55 (11-82) U/L Administered Medications Amiodarone HCl/Dextrose (Nexterone / D5w) 360 mg in 200 mls @ 33.333 mls/hr IV ONE ONE; Protocol Stop: 01/19/25 05:15 Last Admin: 01/18/25 23:27 Dose: 1 mg/min, 33.3 mls/hr Documented By: CARSON Co-signed By: JEEVAN Morphine Sulfate (Morphine Sulfate 2 Mg/Ml Carp) 2 mg IV Q15M PRN PRN Reason: Pain Stop: 02/01/25 23:15 Last Admin: 01/19/25 00:10 Dose: 2 mg Documented By: CARSON Discontinued Medications Amiodarone HCl/Dextrose (Amiodarone 150mg / 100ml D5w) Confirm Administered Dose 150 mg IV .STK-MED ONE Stop: 01/18/25 23:11 Last Admin: 01/18/25 23:21 Dose: 150 mg Documented By: CARSON Co-signed By: REINA Amiodarone HCl (Amiodarone Hcl Inj 50 Mg/Ml 3 Ml Vial) Confirm Administered Dose 150 mg IV .STK-MED ONE Stop: 01/18/25 23:10 Last Admin: 01/18/25 23:21 Dose: Not Given Documented By: CARSON Sodium Chloride (Nss) 500 mls @ 999 mls/hr IV .Q31M ONE Stop: 01/18/25 23:01 Last Infusion: 01/18/25 23:10 Dose: Infused Documented By: Admin: 01/18/25 22:39 Dose: 999 mls/hr Documented By: REINA Promethazine HCl (Phenergan) 6.25 mg in 50.25 mls @ 201 mls/hr IV NOW STA Stop: 01/19/25 00:39 Last Infusion: 01/19/25 00:42 Dose: Infused Documented By: Admin: 01/19/25 00:27 Dose: 201 mls/hr Documented By: CARSON Ioversol (Optiray 320 100ml) 100 ml IV ONCE ONE Stop: 01/19/25 00:26 Last Admin: 01/19/25 00:25 Dose: 93 ml Documented By: NANCY Magnesium Sulfate/Dextrose (Magnesium Sulfate 1gm / D5w Bag) Confirm Administered Dose 2 gm IV .STK-MED ONE Stop: 01/18/25 23:11 Last Admin: 01/18/25 23:21 Dose: 2 gm Documented By: CARSON Morphine Sulfate (Morphine Sulfate 4 Mg/Ml 1 Ml Carp\Vial) 4 mg IV NOW STA Stop: 01/18/25 22:32 Last Admin: 01/18/25 22:39 Dose: 4 mg Documented By: REINA Ondansetron HCl (Ondansetron Inj 2 Mg/Ml 2 Ml Vial) 4 mg IV NOW STA Stop: 01/18/25 22:32 Last Admin: 01/18/25 22:39 Dose: 4 mg Documented By: REINA Promethazine HCl (Promethazine 6.25 Mg/50.25 Ml Nss) Confirm Administered Dose 6.25 mg IV .STK-MED ONE Stop: 01/19/25 00:27 Last Admin: 01/19/25 00:29 Dose: Not Given Documented By: W Imaging Data Radiologist's Impression: Chest X-Ray 01/18/25 22:21 Exam(s): XR CXR 1 VIEW EXAM: XR Chest, 1 View CLINICAL HISTORY: Trauma. TECHNIQUE: Frontal view of the chest. COMPARISON: No relevant prior studies available. FINDINGS: Lungs: No definite pulmonary contusive injury or focal consolidation. Pleural space: No definite pleural effusion or pneumothorax, accounting for limitations with supine technique. Heart: Unremarkable. No cardiomegaly. Mediastinum: No evidence for mediastinal widening. No tracheal deviation. Bones/joints: An oblique fracture is noted involving the lateral aspect of the right clavicle. The osseous structures otherwise appear intact. IMPRESSION: An oblique fracture is noted involving the lateral aspect of the right clavicle. No other acute osseous traumatic injury identified on this portable examination. No radiographic evidence for pulmonary contusive injury, pleural effusion or pneumothorax. Electronically signed by: Tristan Rivera MD 01/19/25 01:09 AM Pelvis X-Ray 01/18/25 22:21 Exam(s): XR PELVIS, 1-2 views EXAM: XR Pelvis, 1 or 2 Views CLINICAL HISTORY: Trauma. TECHNIQUE: Frontal view of the pelvis. COMPARISON: No relevant prior studies available. FINDINGS: Bones/joints: Incidental moderately severe degenerative changes of the lumbar spine. No acute fracture. No dislocation. Soft tissues: Unremarkable. IMPRESSION: Negative radiographic evaluation of the pelvis. Electronically signed by: Tristan Rivera MD 01/19/25 01:10 AM Abdomen/Pelvis CT 01/18/25 22:31 EXAM: CT abd pelvis IV con only CLINICAL HISTORY: trauma TECHNIQUE: Contiguous axial images were obtained from the level of the diaphragm to the pubic symphysis with intravenous contrast. Coronal and sagittal reconstructions were likewise performed and indicated to increase the sensitivity for detecting clinically relevant pathology. If IV contrast material had not been administered, the likelihood of detecting abnormalities relevant to the patient's condition would have been substantially decreased. CT scan was performed according to ALARA (as low as reasonable achievable). COMPARISON: 01/05/2025 04:31:00 PUTTY AND CAULKING SUPERVISOR FINDINGS: The liver is normal in size and attenuation. No focal liver lesions are seen. There is no intra or extrahepatic biliary ductal dilatation. Hepatic vasculature is patent. The gallbladder is present. The spleen, pancreas, and adrenal glands are unremarkable. The kidneys are normal in size and attenuation. There is no hydronephrosis or perinephric fat stranding. Few tiny concretions are noted in right kidney. The ureters are normal in caliber and no ureteral calculi are seen. The bladder is normal in contour. Pelvic viscera are unremarkable. No focal or diffuse bowel wall thickening or evidence of bowel obstruction is identified. No evidence of inflamed appendix. Abdominal and pelvic vasculature is patent. No adenopathy or fluid collections are seen. No aggressive appearing osseous lesions are identified. Multiple small uncomplicated sigmoid colonic diverticulosis IMPRESSION: Few tiny concretions are noted in right kidney.-stable. Multiple small uncomplicated sigmoid colonic diverticulosis -stable. No other new interval abnormality since prior study. Electronically signed by Fernando Fuller 01-19-2025 01:[address] 01/18/25 22:31 EXAM: CT cervical spine wo con CLINICAL HISTORY: trauma TECHNIQUE: Computed tomography of the cervical spine performed without intravenous contrast. Contiguous axial images were obtained from the skull base to T2, with sagittal and coronal reformatted images reconstructed from the axial data. CT scan was performed according to ALARA (as low as reasonable achievable). COMPARISON: 02/2025 04:30:00 PUTTY AND CAULKING SUPERVISOR. FINDINGS: Loss of cervical lordosis - suggest possibility of muscle spasm/positional. Degenerative changes involving cervical spine in the form of multilevel marginal osteophytes, disc space reduction and facetal arthrosis. Left sided partial laminectomy is noted through C5 and C6 level. Partial fusion of C5 and C6 vertebral body. Cervical vertebral bodies are normal in height and alignment, with no evidence of fracture or subluxation. Lateral masses of C1 are symmetrical, and the dens is intact. Prevertebral soft tissues are not widened. The remaining suprahyoid and infrahyoid soft tissues in the neck are unremarkable. Posterior uncovertebral arthrosis is noted at C5-C6 and C6-C7 levels which indenting ventral thecal sac and causes bilateral neuroforaminal narrowing. Thyroid gland appears unremarkable. IMPRESSION: 1.No acute fracture or subluxation in the cervical spine. 2.Cervical spondylosis. 3.No other new interval abnormality since prior study. Electronically signed by Fernando Fuller 01-19-2025 01:[address] 01/18/25 22:31 EXAM: CT chest diagnostic w con CLINICAL HISTORY: trauma TECHNIQUE: Contiguous axial images were obtained from the neck base through the upper abdomen following intravenous administration of contrast material. If IV contrast material had not been administered, the likelihood of detecting abnormalities relevant to the patient's condition would have been substantially decreased. In addition, sagittal and coronal reconstructions were performed. CT scan was performed according to ALARA (as low as reasonable achievable). COMPARISON: None. FINDINGS: Multiple subpleural atelectatic bands are noted involving bilateral lower lobe. Rest of lungs are clear, The central airways are patent. There are no pleural effusions. No pneumothorax is seen. No axillary, hilar, or mediastinal adenopathy is identified. The visualized thyroid is unremarkable. The heart, aorta, and pulmonary arteries are of normal size and configuration. No pericardial effusion is identified. Imaged portions of the upper abdomen are unremarkable. No aggressive appearing osseous lesions are identified. Old fracture of left fourth rib. Comminuted mildly displaced fracture involving lateral end of right clavicle. IMPRESSION: 1.Multiple subpleural atelectatic bands are noted involving bilateral lower lobe. 2.Comminuted mildly displaced fracture involving lateral end of right clavicle. 3.No obvious acute trauma related intrathoracic abnormality seen. Electronically signed by Fernando Fuller 01-19-2025 01:[address] 01/18/25 22:31 EXAM: CT head/brain wo con CLINICAL HISTORY: trauma TECHNIQUE: Multiple axial images are obtained from the skull base to the vertex without contrast. CT scan was performed according to ALARA (as low as reasonable achievable). 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 No evidence of space occupying lesion, hemorrhage, edema, mass effect, midline shift, extra axial collection, or hydrocephalus is noted. Basal cisterns are symmetric and normal in size and configuration. There are scattered periventricular hypodensities as can be seen with chronic microvascular ischemic changes. The alcala-white matter differentiation is preserved. Visualized paranasal sinuses and mastoid air cells are well aerated. Orbital contents are within normal limits. Bony structures are intact. Scalp hematoma is noted in right frontal region.-new IMPRESSION: 1. No evidence of acute intracranial abnormality is demonstrated. 2. Chronic microvascular ischemic changes. 3. Cerebral atrophy. 4. Scalp hematoma is noted in right frontal region.-new finding. No other new interval abnormality since prior study. Electronically signed by Fernando Fuller 01-19-2025 01:[address] 01/18/25 22:31 EXAM: CT lumbar spine w con CLINICAL HISTORY: trauma TECHNIQUE: Multiple contiguous axial images were obtained through the lumbar spine without IV contrast. Sagittal and coronal reformatted images were obtained from the axial data. CT scan was performed according to ALARA (as low as reasonable achievable). COMPARISON: None. FINDINGS: Loss of lumbar lordosis - suggest possibility of muscle spasm/positional. Degenerative changes involving lumbar spine in the form of multilevel marginal osteophytes, disc space reduction and facetal arthrosis. Vacuum phenomenon are noted involving multiple intervertebral disc Mild retrolisthesis of L2 over L3 vertebra. Mild anterolisthesis of L4 over L5 vertebra. Lumbar vertebral bodies are maintained in height and alignment. No vertebral destructive changes are seen. Posterior disc osteophyte complex is noted through L1-L2 to L5-S1 level which indenting ventral thecal sac and causes bilateral lateral recess and neural foraminal narrowing at respective levels. Paravertebral soft tissues are unremarkable. Diffuse atherosclerotic calcifications are noted involving visualized abdominal aorta with multifocal ectasia. IMPRESSION: 1. Lumbar spondylosis. 2. No obvious acute trauma related abnormality seen. Electronically signed by Fernando Fuller 01-19-2025 01:41 AM Shoulder X-Ray 01/18/25 22:31 Exam(s): XR SHOULDER, 2+ views EXAM: XR Right Shoulder Complete, 2 or More Views CLINICAL HISTORY: fall. TECHNIQUE: Two or more views of the right shoulder. COMPARISON: No relevant prior studies available. FINDINGS: Bones/joints: Predominately nondisplaced oblique fracture involving the lateral aspect of the right clavicle. The acromioclavicular joint is maintained. The scapula and humerus are intact. The regional ribs are intact. No dislocation. Soft tissues: Unremarkable. IMPRESSION: Predominately nondisplaced oblique fracture involving the lateral aspect of the right clavicle. The acromioclavicular joint is maintained. Electronically signed by: Tristan Rivera MD 01/19/25 01:[address] 01/18/25 22:31 EXAM: CT thoracic spine w con CLINICAL HISTORY: trauma TECHNIQUE: Multiple contiguous axial images were obtained through the thoracic spine without IV contrast. Sagittal and coronal reformatted images were obtained from the axial data. CT scan was performed according to ALARA (as low as reasonable achievable). COMPARISON: None. FINDINGS: Degenerative changes involving thoracic spine in the form of multilevel marginal osteophytes, disc space reduction and facetal arthrosis. The alignment of the thoracic spine is maintained.Thoracic vertebral bodies are maintained in height and alignment. No vertebral destructive changes are seen.C7-T1: No disc bulge. No canal stenosis. No neuroforaminal narrowing. T1-T2: No disc bulge. No canal stenosis. No neuroforaminal narrowing. T2-T3: No disc bulge. No canal stenosis. No neuroforaminal narrowing. T3-T4: No disc bulge. No canal stenosis. No neuroforaminal narrowing. T4-T5: No disc bulge. No canal stenosis. No neuroforaminal narrowing. T5-T6: Disc osteophyte complex, indenting ventral thecal sac and causing bilateral neural foraminal narrowing. T6-T7: No disc bulge. No canal stenosis. No neuroforaminal narrowing. T7-T8: No disc bulge. No canal stenosis. No neuroforaminal narrowing. T8-T9: No disc bulge. No canal stenosis. No neuroforaminal narrowing. T9-T10: No disc bulge. No canal stenosis. No neuroforaminal narrowing. T10-T11: Disc osteophyte complex, indenting ventral thecal sac and causing bilateral neural foraminal narrowing. T11-T12: No disc bulge. No canal stenosis. No neuroforaminal narrowing.Paravertebral soft tissues are unremarkable. Visualized lung parenchyma appears unremarkable. IMPRESSION: Thoracic spondylosis changes. No obvious acute trauma related abnormality seen. Electronically signed by Fernando Fuller 01-19-2025 01:55 AM Discharge Plan Visit Data Chief Complaint: Fall Stated Complaint: FALL, BACK, NECK AND SHOULDER PAIN ED Provider: Reggie Carlos Discharge Problem: Torsades de pointes, Dementia, Ventricular tachycardia, Fall, Closed fracture of right clavicle, Acute head trauma Patient Disposition: Admitted As Inpatient Condition: Serious Forms Stand Alone Forms: [facility] Prescriptions Prescriptions: No Action multivitamin Tablet 1 tab PO QAM sennosides [senna] 8.6 mg Tablet 8.6 mg PO QAM polyethylene glycol 3350 [Miralax] 17 gram/dose Powder 17 g PO DAILY PRN (Reason: Constipation) quetiapine 25 mg tablet 37.5 mg PO .DAILY @ 1700 donepezil 10 mg Tablet 10 mg PO QPM Rx Instructions: @ 1900 naproxen sodium 220 mg Tablet 220 mg PO Q12H PRN (Reason: Pain) Excedrin Migraine 250-250-65 mg Tablet 1 tab PO Q6H PRN (Reason: Migraine Headache) rosuvastatin 10 mg Tablet 10 mg PO QAM cholecalciferol (vitamin D3) [Vitamin D3] 25 mcg (1,000 unit) Tablet 25 mcg PO QAM quetiapine 25 mg tablet 12.5 mg PO QAM potassium chloride 10 mEq capsule, extended release 10 meq PO QAM valacyclovir 1 gram tablet 1,000 mg PO QAM memantine 10 mg tablet 10 mg PO BID Referrals Referrals: Jasmin Chase [Primary Care Provider] - Discharge Problem: Dementia Qualifiers: Dementia type: unspecified type Dementia severity: moderate Dementia behavioral or psychological symptom: with agitation Qualified Code(s): F03.B11 - Unspecified dementia, moderate, with agitation Fall Qualifiers: Encounter type: initial encounter Qualified Code(s): W19.XXXA - Unspecified fall, initial encounter Closed fracture of right clavicle Qualifiers: Encounter type: initial encounter Clavicle location: lateral end Fracture alignment: displaced Qualified Code(s): S42.031A - Displaced fracture of lateral end of right clavicle, initial encounter for closed fracture Acute head trauma Qualifiers: Encounter type: initial encounter Qualified Code(s): S09.90XA - Unspecified injury of head, initial encounter
[2025-01-18] MEDS: ONDANSETRON INJ 2 MG/ML 2 ML VIAL IV STA (22:39)
[2025-01-18] MEDS: MoRPHine SULFATE 4 MG/ML 1 ML CARP\\VIAL IV STA (22:39)
[2025-01-18] MEDS: SODIUM CHLORIDE 0.9% 500 ML IV ONE (22:39)
[2025-01-18 22:45] LABS: Basophils # (auto) 0.04 K/uL (0.00-0.20); Basophils % (auto) 0.5 %; Eosinophils # (auto) 0.06 K/uL (0.00-0.50); Eosinophils % (auto) 0.8 %; Hematocrit (blood only) 40.6 % (37.0-47.0); Hemoglobin 14.7 g/dl (12.0-16.0); Immature Granulocytes # (auto) 0.03 K/uL (0.01-0.20); Immature Granulocytes % (auto) 0.4 %; Lymphocytes # (auto) 1.62 K/uL (1.20-3.40); Lymphocytes % (auto) 20.9 %; Mean Corpuscular Hemoglobin 32.4 pg (25.0-34.0); Mean Corpuscular Hgb Conc 36.2 g/dL (32.0-36.0); Mean Corpuscular Volume 89.4 fL (80.0-100.0); Mean Platelet Volume 9.3 fL (9.4-12.4); Monocytes # (auto) 0.51 K/uL (0.11-0.59); Monocytes % (auto) 6.6 %; Neutrophils # (auto) 5.48 K/uL (1.40-6.50); Neutrophils % (auto) 70.8 %; Platelet Count 195 K/uL (130-400); RDW Coefficient of Variation 12.5 % (11.5-14.5); RDW Standard Deviation 41.1 fL (36.4-46.3); Red Blood Count 4.54 M/uL (4.20-5.40); White Blood Count 7.74 K/ul (4.8-10.8)
[2025-01-18 22:45] LABS: iSTAT Creatinine 0.8 mg/dl (0.6-1.3); iSTAT Hemoglobin 13.9 g/dl (12.0-16.0); iSTAT Ionized Calcium 1.11 mmol/l (1.12-1.32); iSTAT Potassium 3.5 mmol/L (3.3-5.0)
[2025-01-18 22:59] LABS: Albumin Globulin Ratio 1.7 (0.9-2); Albumin Level 4.4 gm/dl (3.4-5.0); BUN Creatinine Ratio 18.8 (10-20); Bilirubin,Total 0.5 mg/dl (0.2-1.0); Calcium 9.7 mg/dl (8.6-10.3); Creatinine Clr Calc Pharmacy 46.3 ml/min; Globulin 2.6 gm/dl (2.5-4.0); Magnesium 1.9 mg/dl (1.7-2.4); Potassium 3.6 mmol/L (3.5-5.1)
[2025-01-18 23:06] LABS: Troponin I High Sensitivity 8.5 pg/ml (0-14)
[2025-01-18] MEDS ORDERED: 0.2 MICRON FILTER SET 1 EACH IV ONE (23:16)
[2025-01-18] MEDS: MAGNESIUM SULFATE 1GM / D5W BAG IV ONE (23:21)
[2025-01-18] MEDS: AMIODARONE 150MG / 100ML D5W IV ONE (23:21)
[2025-01-18] MEDS: AMIODARONE HCL INJ 50 MG/ML 3 ML VIAL IV ONE (23:21)
[2025-01-18] MEDS: AMIODARONE / D5W 360 MG/200 ML BAG IV ONE (23:27)
[2025-01-19 00:10] LABS: Partial Thromboplastin Ratio 0.9; Partial Thromboplastin Time 25 Seconds (21-31); Prothrombin Time 11.1 Seconds (9.0-12.0)
[2025-01-19] MEDS: MoRPHine SULFATE 2 MG/ML CARP IV PRN ×2 (00:10→14:06)
[2025-01-19] MEDS: OPTIRAY 320 100ml IV ONE (00:25)
[2025-01-19] MEDS: PROMETHAZINE 6.25 MG/50.25 ML BAG IV STA (00:27)
[2025-01-19] MEDS: PROMETHAZINE 6.25 MG/50.25 ML NSS IV ONE (00:29)
--- NOTE | 2025-01-19 01:09 | XRay Report ---
Exam(s): XR CXR 1 VIEW EXAM: XR Chest, 1 View CLINICAL HISTORY: Trauma. TECHNIQUE: Frontal view of the chest. COMPARISON: No relevant prior studies available. FINDINGS: Lungs: No definite pulmonary contusive injury or focal consolidation. Pleural space: No definite pleural effusion or pneumothorax, accounting for limitations with supine technique. Heart: Unremarkable. No cardiomegaly. Mediastinum: No evidence for mediastinal widening. No tracheal deviation. Bones/joints: An oblique fracture is noted involving the lateral aspect of the right clavicle. The osseous structures otherwise appear intact. IMPRESSION: An oblique fracture is noted involving the lateral aspect of the right clavicle. No other acute osseous traumatic injury identified on this portable examination. No radiographic evidence for pulmonary contusive injury, pleural effusion or pneumothorax. Electronically signed by: Tristan Rivera MD 01/19/25 01:09 AM
--- NOTE | 2025-01-19 01:10 | XRay Report ---
Exam(s): XR PELVIS, 1-2 views EXAM: XR Pelvis, 1 or 2 Views CLINICAL HISTORY: Trauma. TECHNIQUE: Frontal view of the pelvis. COMPARISON: No relevant prior studies available. FINDINGS: Bones/joints: Incidental moderately severe degenerative changes of the lumbar spine. No acute fracture. No dislocation. Soft tissues: Unremarkable. IMPRESSION: Negative radiographic evaluation of the pelvis. Electronically signed by: Tristan Rivera MD 01/19/25 01:10 AM
--- NOTE | 2025-01-19 01:12 | XRay Report ---
Exam(s): XR SHOULDER, 2+ views EXAM: XR Right Shoulder Complete, 2 or More Views CLINICAL HISTORY: fall. TECHNIQUE: Two or more views of the right shoulder. COMPARISON: No relevant prior studies available. FINDINGS: Bones/joints: Predominately nondisplaced oblique fracture involving the lateral aspect of the right clavicle. The acromioclavicular joint is maintained. The scapula and humerus are intact. The regional ribs are intact. No dislocation. Soft tissues: Unremarkable. IMPRESSION: Predominately nondisplaced oblique fracture involving the lateral aspect of the right clavicle. The acromioclavicular joint is maintained. Electronically signed by: Tristan Rivera MD 01/19/25 01:10 AM
--- NOTE | 2025-01-19 01:35 | CT Scan Report ---
EXAM: CT cervical spine wo con CLINICAL HISTORY: trauma TECHNIQUE: Computed tomography of the cervical spine performed without intravenous contrast. Contiguous axial images were obtained from the skull base to T2, with sagittal and coronal reformatted images reconstructed from the axial data. CT scan was performed according to ALARA (as low as reasonable achievable). 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 FINDINGS: Loss of cervical lordosis - suggest possibility of muscle spasm/positional. Degenerative changes involving cervical spine in the form of multilevel marginal osteophytes, disc space reduction and facetal arthrosis. Left sided partial laminectomy is noted through C5 and C6 level. Partial fusion of C5 and C6 vertebral body. Cervical vertebral bodies are normal in height and alignment, with no evidence of fracture or subluxation. Lateral masses of C1 are symmetrical, and the dens is intact. Prevertebral soft tissues are not widened. The remaining suprahyoid and infrahyoid soft tissues in the neck are unremarkable. Posterior uncovertebral arthrosis is noted at C5-C6 and C6-C7 levels which indenting ventral thecal sac and causes bilateral neuroforaminal narrowing. Thyroid gland appears unremarkable. IMPRESSION: 1.No acute fracture or subluxation in the cervical spine. 2.Cervical spondylosis. 3.No other new interval abnormality since prior study. Electronically signed by Fernando Fuller 01-19-2025 01:35 AM
--- NOTE | 2025-01-19 01:39 | CT Scan Report ---
EXAM: CT head/brain wo con CLINICAL HISTORY: trauma TECHNIQUE: Multiple axial images are obtained from the skull base to the vertex without contrast. CT scan was performed according to ALARA (as low as reasonable achievable). 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 No evidence of space occupying lesion, hemorrhage, edema, mass effect, midline shift, extra axial collection, or hydrocephalus is noted. Basal cisterns are symmetric and normal in size and configuration. There are scattered periventricular hypodensities as can be seen with chronic microvascular ischemic changes. The alcala-white matter differentiation is preserved. Visualized paranasal sinuses and mastoid air cells are well aerated. Orbital contents are within normal limits. Bony structures are intact. Scalp hematoma is noted in right frontal region.-new IMPRESSION: 1. No evidence of acute intracranial abnormality is demonstrated. 2. Chronic microvascular ischemic changes. 3. Cerebral atrophy. 4. Scalp hematoma is noted in right frontal region.-new finding. No other new interval abnormality since prior study. Electronically signed by Fernando Fuller 01-19-2025 01:38 AM
--- NOTE | 2025-01-19 01:41 | CT Scan Report ---
EXAM: CT lumbar spine w con CLINICAL HISTORY: trauma TECHNIQUE: Multiple contiguous axial images were obtained through the lumbar spine without IV contrast. Sagittal and coronal reformatted images were obtained from the axial data. CT scan was performed according to ALARA (as low as reasonable achievable). COMPARISON: None. FINDINGS: Loss of lumbar lordosis - suggest possibility of muscle spasm/positional. Degenerative changes involving lumbar spine in the form of multilevel marginal osteophytes, disc space reduction and facetal arthrosis. Vacuum phenomenon are noted involving multiple intervertebral disc Mild retrolisthesis of L2 over L3 vertebra. Mild anterolisthesis of L4 over L5 vertebra. Lumbar vertebral bodies are maintained in height and alignment. No vertebral destructive changes are seen. Posterior disc osteophyte complex is noted through L1-L2 to L5-S1 level which indenting ventral thecal sac and causes bilateral lateral recess and neural foraminal narrowing at respective levels. Paravertebral soft tissues are unremarkable. Diffuse atherosclerotic calcifications are noted involving visualized abdominal aorta with multifocal ectasia. IMPRESSION: 1. Lumbar spondylosis. 2. No obvious acute trauma related abnormality seen. Electronically signed by Fernando Fuller 01-19-2025 01:41 AM
--- NOTE | 2025-01-19 01:52 | CT Scan Report ---
EXAM: CT chest diagnostic w con CLINICAL HISTORY: trauma TECHNIQUE: Contiguous axial images were obtained from the neck base through the upper abdomen following intravenous administration of contrast material. If IV contrast material had not been administered, the likelihood of detecting abnormalities relevant to the patient's condition would have been substantially decreased. In addition, sagittal and coronal reconstructions were performed. CT scan was performed according to ALARA (as low as reasonable achievable). COMPARISON: None. FINDINGS: Multiple subpleural atelectatic bands are noted involving bilateral lower lobe. Rest of lungs are clear, The central airways are patent. There are no pleural effusions. No pneumothorax is seen. No axillary, hilar, or mediastinal adenopathy is identified. The visualized thyroid is unremarkable. The heart, aorta, and pulmonary arteries are of normal size and configuration. No pericardial effusion is identified. Imaged portions of the upper abdomen are unremarkable. No aggressive appearing osseous lesions are identified. Old fracture of left fourth rib. Comminuted mildly displaced fracture involving lateral end of right clavicle. IMPRESSION: 1.Multiple subpleural atelectatic bands are noted involving bilateral lower lobe. 2.Comminuted mildly displaced fracture involving lateral end of right clavicle. 3.No obvious acute trauma related intrathoracic abnormality seen. Electronically signed by Fernando Fuller 01-19-2025 01:52 AM
--- NOTE | 2025-01-19 01:56 | CT Scan Report ---
EXAM: CT thoracic spine w con CLINICAL HISTORY: trauma TECHNIQUE: Multiple contiguous axial images were obtained through the thoracic spine without IV contrast. Sagittal and coronal reformatted images were obtained from the axial data. CT scan was performed according to ALARA (as low as reasonable achievable). COMPARISON: None. FINDINGS: Degenerative changes involving thoracic spine in the form of multilevel marginal osteophytes, disc space reduction and facetal arthrosis. The alignment of the thoracic spine is maintained.Thoracic vertebral bodies are maintained in height and alignment. No vertebral destructive changes are seen.C7-T1: No disc bulge. No canal stenosis. No neuroforaminal narrowing. T1-T2: No disc bulge. No canal stenosis. No neuroforaminal narrowing. T2-T3: No disc bulge. No canal stenosis. No neuroforaminal narrowing. T3-T4: No disc bulge. No canal stenosis. No neuroforaminal narrowing. T4-T5: No disc bulge. No canal stenosis. No neuroforaminal narrowing. T5-T6: Disc osteophyte complex, indenting ventral thecal sac and causing bilateral neural foraminal narrowing. T6-T7: No disc bulge. No canal stenosis. No neuroforaminal narrowing. T7-T8: No disc bulge. No canal stenosis. No neuroforaminal narrowing. T8-T9: No disc bulge. No canal stenosis. No neuroforaminal narrowing. T9-T10: No disc bulge. No canal stenosis. No neuroforaminal narrowing. T10-T11: Disc osteophyte complex, indenting ventral thecal sac and causing bilateral neural foraminal narrowing. T11-T12: No disc bulge. No canal stenosis. No neuroforaminal narrowing.Paravertebral soft tissues are unremarkable. Visualized lung parenchyma appears unremarkable. IMPRESSION: Thoracic spondylosis changes. No obvious acute trauma related abnormality seen. Electronically signed by Fernando Fuller 01-19-2025 01:55 AM
--- NOTE | 2025-01-19 01:58 | CT Scan Report ---
EXAM: CT abd pelvis IV con only CLINICAL HISTORY: trauma TECHNIQUE: Contiguous axial images were obtained from the level of the diaphragm to the pubic symphysis with intravenous contrast. Coronal and sagittal reconstructions were likewise performed and indicated to increase the sensitivity for detecting clinically relevant pathology. If IV contrast material had not been administered, the likelihood of detecting abnormalities relevant to the patient's condition would have been substantially decreased. CT scan was performed according to ALARA (as low as reasonable achievable). 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 No focal liver lesions are seen. There is no intra or extrahepatic biliary ductal dilatation. Hepatic vasculature is patent. The gallbladder is present. The spleen, pancreas, and adrenal glands are unremarkable. The kidneys are normal in size and attenuation. There is no hydronephrosis or perinephric fat stranding. Few tiny concretions are noted in right kidney. The ureters are normal in caliber and no ureteral calculi are seen. The bladder is normal in contour. Pelvic viscera are unremarkable. No focal or diffuse bowel wall thickening or evidence of bowel obstruction is identified. No evidence of inflamed appendix. Abdominal and pelvic vasculature is patent. No adenopathy or fluid collections are seen. No aggressive appearing osseous lesions are identified. Multiple small uncomplicated sigmoid colonic diverticulosis IMPRESSION: Few tiny concretions are noted in right kidney.-stable. Multiple small uncomplicated sigmoid colonic diverticulosis -stable. No other new interval abnormality since prior study. Electronically signed by Fernando Fuller 01-19-2025 01:57 AM
--- NOTE | 2025-01-19 02:13 | History & Physical Report ---
Date of Service January 19, 2025 Assessment & Plan (1) Closed fracture of right clavicle: (2) Torsades de pointes: (3) Essential (primary) hypertension: (4) Hyperlipidemia: (5) GERD without esophagitis: Plan 84yo female with history of dementia, HTN, HLP presenting with unwitnessed fall resulting in right clavicle fracture. Patient with Type II heart block and a brief episode of torsades in the ER. #Closed fracture of right clavicle -Admit to medical with telemetry -Maintain arm sling -Pain control with Tylenol PRN #Torsades de pointes - patient received 3 chest compressions as well as magnesium and Amiodarone. Has remained in NSR and Type II heart block since with no further episodes of VT -Telemetry monitoring -Electrolyte repletion - K and Ca ordered -Repeat Mg in AM -Continue Amiodarone gtt for now -Cardiology consultation appreciated *Family does wish to pursue a less aggressive approach to patient care given patient's dementia and overall decline over the last several months. Doubtful that family will opt for pacemaker. #Dementia -Continue Aricept and Namenda -Frequent orientation -Continue Seroquel #Hyperlipidemia -Continue Crestor History of Present Illness Chief Complaint: fall, arrhythmia Primary Care Provider: [facility] Brunilda Krause is an 84yo female with history of dementia, HTN, HLP and GERD presenting from [facility] with frequent falls. Patient's son is at bedside and assists with history. Patient has had at least 3 falls in the last several weeks. Patient had an unwitnessed fall today and has been complaining of significant neck pain, back pain and right shoulder pain. Her son reports that she has been very dizzy for the last 3 weeks and has been very unsteady on her feet. No additional complaints - son denies report of fever, chills, chest pain, palpitations, abdominal pain, nausea, vomiting, diarrhea. She has been eating and drinking fairly well. In the ER patient was noted to be in NSR as well as Type II 2nd degree. She did have a brief run of what appeared to be polymorphic ventricular tachycardia during which she was unresponsive. She received three chest compressions with return to NSR. She was given IV Magnesium as well as Amiodarone. ER Course: Amiodarone Magnesium Morphine NSS Zofran Allergies Allergy/AdvReac Type Severity Reaction Status Date / Time metronidazole Allergy Unknown CAN'T Verified 01/18/25 23:32 REMEMBER simvastatin [From Zocor] Allergy Unknown CAN'T Verified 01/18/25 23:32 REMEMBER ciprofloxacin [From Cipro] AdvReac Intermediate vertigo Verified 01/18/25 23:32 Home Medications Medication Instructions Recorded Confirmed Type [id number] 250 1 tab PO Q6H PRN Migraine Headache 05/05/24 01/18/25 History mg-250 mg-65 mg tablet (Excedrin Migraine) cholecalciferol (vitamin D3) 25 25 mcg PO QAM 05/05/24 01/18/25 History mcg (1,000 unit) tablet (Vitamin D3) donepezil 10 mg tablet 10 mg PO QPM 05/05/24 01/18/25 History naproxen sodium 220 mg tablet 220 mg PO Q12H PRN Pain 05/05/24 01/18/25 History quetiapine 25 mg tablet 37.5 mg PO .DAILY @ 1700 05/05/24 01/18/25 History rosuvastatin 10 mg tablet 10 mg PO QAM 05/05/24 01/18/25 History multivitamin 1 tab PO QAM 06/11/24 01/18/25 History memantine 10 mg tablet 10 mg PO BID 09/13/24 01/18/25 History potassium chloride 10 mEq 10 meq PO QAM 09/13/24 01/18/25 History capsule,extended release quetiapine 25 mg tablet 12.5 mg PO QAM 09/13/24 01/18/25 History valacyclovir 1 gram tablet 1,000 mg PO QAM 09/13/24 01/18/25 History polyethylene glycol 3350 17 17 g PO DAILY PRN Constipation 01/18/25 01/18/25 History gram/dose oral powder (Miralax) sennosides 8.6 mg tablet (senna) 8.6 mg PO QAM 01/18/25 01/18/25 History Past Med/Surg History Problem List Acute head trauma (Acute) Closed fracture of right clavicle (Acute) Fall (Acute) Ventricular tachycardia (Acute) Dementia (Acute) Torsades de pointes (Acute) Renal cyst (Chronic) Kidney stones (Chronic) Nausea & vomiting (Acute) Abdominal pain (Acute) Fall from standing (Acute) Hyperlipidemia Depression Essential (primary) hypertension Unresponsive episode (Acute) Constipation (Acute) Abdominal pain Dementia (Acute) Depression Vitamin D insufficiency Chronic kidney disease, stage II (mild) Osteoporosis, unspecified Chronic osteoarthritis (Chronic) GERD without esophagitis (Chronic) Hyperlipidemia (Chronic) Left bundle branch block (Chronic) Pre-diabetes (Chronic) Sensorineural hearing loss (SNHL) of both ears (Chronic) Atherosclerosis of both carotid arteries (Chronic) Medical History Right ureteral calculus Osteoporosis Atherosclerosis Fall from standing Abdominal pain Acute subdural hematoma History of diverticulitis Dementia Knee pain Anserine bursitis Gait abnormality Gait abnormality Cervicalgia Hypertension Osteopenia after menopause Hypokalemia Kidney stone on right side Diverticulitis Hyperlipemia Other cervical disc displacement, mid-cervical region, unspecified level Dementia Abdominal pain, RUQ Carpal tunnel syndrome Chronic sinusitis Fatigue Hoarseness Other and unspecified hyperlipidemia Hypertrophy of both inferior nasal turbinates Primary osteoarthritis, unspecified hand Sleep apnea Stricture of cervix Migraines Vertigo Surgical History History of sinus surgery H/O ovarian cystectomy Status post medial meniscus repair Cervical vertebral fusion History of carpal tunnel surgery History of arthroplasty S/P excision of Flannery's neuroma History of shoulder surgery Family History Father Emphysema lung Asthma Sinusitis Mother Stroke syndrome Brother Stroke syndrome Epilepsy Esophageal cancer Sinusitis Coronary heart disease Sister Sinusitis Breast cancer Thoracic spinal stenosis Aunt Stroke Uncle Stroke Grandmother Cancer Denies family history of Ovarian cancer Prostate cancer Myocardial infarction Lung cancer Colorectal cancer Social History Smoking Status: Never smoker Second Hand Exposure: No; Do You Dip or Chew Tobacco: No; Hx Alcohol Use: No Hx Substance Use: No Preferred Language: Tanzanian Communication Ability: Effective Communication Ability Comment: daughter reports decreased ability in last few months Visual Impairment: Limited Hearing Ability: Use of Hearing Aid Automatic Winder Operator Required: No Beliefs That Will Affect Care: None marital status: / Current Living Situation: Senior Care Current Living Situation Comment: [facility] current occupational status: retired How many Children do You have: 3 Feels Safe at Home: Yes Childhood Exposure to Second-Hand Smoke: Yes (dad smoked in house ) caffeine: Yes (soda ) Dental Care, Regularly: Yes Physical Activity Frequency: Does not Exercise Seatbelt Use: always Sunscreen Use: Yes (sometimes ) Assistive Devices: None and Cane Review of Systems Review of Systems: All systems reviewed & are unremarkable except as noted in HPI & below Physical Exam Physical Exam: General: patient with dementia, answers yes and no, follows commands Skin: warm, dry, intact, no rashes or lesions HEENT: NC/AT, PERRL, EOMI, anicteric sclera, conjunctiva without injection, external ear normal to inspection and nontender, nares patent, moist mucus membranes, dentition intact, no oropharyngeal lesions, neck supple, trachea midline, no LAD, no thyromegaly, no JVD Heart: +S1/S2, regular, bradycardic, no m/r/g Lungs: equal air entry bilaterally, no rales/rhonchi/wheezes +right scapular pain Abd: +BS, soft, NT/ND, no masses/organomegaly/ascites Ext: warm, 2+ pulses in UE/LE bilaterally, no clubbing/cyanosis or edema Neuro: nonfocal Results & Data Results & Data Vital Signs (Past 12 Hours) Vital Signs Temp Pulse Pulse Resp BP BP Pulse Ox 01/19/25 00:00 46 L 16 138/54 L 91 01/18/25 23:21 44 L 20 93 01/18/25 23:09 107 H 17 01/18/25 23:08 62 01/18/25 23:01 169/103 H 01/18/25 22:54 45 L 20 97 01/18/25 22:36 46 L 24 97 01/18/25 22:31 150/97 H 01/18/25 22:14 45 L 01/18/25 22:13 36.7 C 47 L 18 156/102 H 99 01/18/25 22:10 87 O2 Del Method O2 Flow Rate 01/19/25 00:00 Nasal Cannula 3 01/18/25 23:21 Room Air 01/18/25 23:09 01/18/25 23:08 01/18/25 23:01 01/18/25 22:54 Room Air 01/18/25 22:36 Room Air 01/18/25 22:31 01/18/25 22:14 01/18/25 22:13 Room Air 01/18/25 22:10 Laboratory Results Laboratory Results WBC 7.74 K/ul (4.8-10.8) 01/18/25 22: RBC 4.54 M/uL (4.20-5.40) 01/18/25 22: Hgb 14.7 g/dl (12.0-16.0) 01/18/25 22: POC Hgb 13.9 g/dl (12.0-16.0) 01/18/25 22:32 Hct 40.6 % (37.0-47.0) 01/18/25: POC Hct 41 % (37-47) 01/18/25 22: MCV 89.4 fL (80.0-100.0) 01/18/25: MCH 32.4 pg (25.0-34.0) 01/18/25: MCHC 36.2 g/dL (32.0-36.0) H 01/18/25: RDW Std Deviation 41.1 fL (36.4-46.3) 01/18/25: RDW Coeff of Major 12.5 % (11.5-14.5) 01/18/25: Plt Count 195 K/uL (130-400) 01/18/25: MPV 9.3 fL (9.4-12.4) L 01/18/25: Immature Gran % (Auto) 0.4 % 01/18/25: Neut % (Auto) 70.8 % 01/18/25: Lymph % (Auto) 20.9 % 01/18/25: [place] % (Auto) 6.6 % 01/18/25: Eos % (Auto) 0.8 % 01/18/25: Baso % (Auto) 0.5 % 01/18/25: Neut # (Auto) 5.48 K/uL (1.40-6.50) 03/17/25 22:25 Lymph # (Auto) 1.62 K/uL (1.20-3.40) 01/18/25 22:25 [place] # (Auto) 0.51 K/uL (0.11-0.59) 01/18/25 22:25 Eos # (Auto) 0.06 K/uL (0.00-0.50) 01/18/25 22:25 Baso # (Auto) 0.04 K/uL (0.00-0.20) 01/18/25 22:25 Immature Gran # (Auto) 0.03 K/uL (0.01-0.20) 01/18/25 22:25 PT 11.1 Seconds (9.0-12.0) 01/18/25 22:25 INR 1.0 (0.9-1.1) 01/18/25 22:25 APTT 25 Seconds (21-31) 01/18/25 22:25 PTT Ratio 0.9 01/18/25 22:25 POC Sodium 141 mmol/L (135-144) 01/18/25 22:32 Sodium 139 mmol/L (136-145) 01/18/25 22:25 POC Potassium 3.5 mmol/L (3.3-5.0) 01/18/25 22:32 Potassium 3.6 mmol/L (3.5-5.1) 01/18/25 22:25 POC Chloride 104 mmol/L (101-112) 01/18/25 22:32 Chloride 105 mmol/L (98-107) 01/18/25 22:25 Carbon Dioxide 24 mmol/L (21-32) 01/18/25 22:25 POC Total CO2 23 mmol/L (24-31) L 01/18/25 22:32 Anion Gap 10 (3-11) 01/18/25 22:25 POC Anion Gap 18.0 mmol/L (16-25) 01/18/25 22:32 POC BUN 16 mg/dl (7-18) 01/18/25 22:32 BUN 16 mg/dl (6-23) 01/18/25 22:25 Creatinine 0.85 mg/dl (0.6-1.2) 01/18/25 22:25 POC Creatinine 0.8 mg/dl (0.6-1.3) 01/18/25 22:32 Est Cr Clr Drug Dosing 46.3 ml/min 01/18/25 22:25 eGFR 66.68 01/18/25 22: BUN/Creatinine Ratio 18.8 (10-20) 01/18/25 22:25 Glucose 114 mg/dl (70-99(Fasting)) H 01/18/25 22: POC Glucose (other) 112 mg/dl (70-99) H 01/18/25 22:32 Calcium 9.7 mg/dl (8.6-10.3) 01/18/25 22: POC Ioniz Calcium Celine 1.11 mmol/l (1.12-1.32) L 01/18/25: Phosphorus 2.5 mg/dl (2.5-4.9) 01/18/25: Magnesium 1.9 mg/dl (1.7-2.4) 01/18/25: Total Bilirubin 0.5 mg/dl (0.2-1.0) 01/18/25: AST 20 U/L (13-39) 01/18/25 22: ALT 16 U/L (7-52) 01/18/25 22: Alkaline Phosphatase 85 U/L (34-104) 01/18/25: Troponin I High Sens 8.5 pg/ml (0-14) 01/18/25: Total Protein 7.0 gm/dl (6.0-8.3) 01/18/25: Albumin 4.4 gm/dl (3.4-5.0) 01/18/25: Globulin 2.6 gm/dl (2.5-4.0) 01/18/25 22: Albumin/Globulin Ratio 1.7 (0.9-2) 01/18/25: Lipase 55 U/L (11-82) 01/18/25 22:25 Impressions Chest X-Ray 01/18/25 22:21 Exam(s): XR CXR 1 VIEW EXAM: XR Chest, 1 View CLINICAL HISTORY: Trauma. TECHNIQUE: Frontal view of the chest. COMPARISON: No relevant prior studies available. FINDINGS: Lungs: No definite pulmonary contusive injury or focal consolidation. Pleural space: No definite pleural effusion or pneumothorax, accounting for limitations with supine technique. Heart: Unremarkable. No cardiomegaly. Mediastinum: No evidence for mediastinal widening. No tracheal deviation. Bones/joints: An oblique fracture is noted involving the lateral aspect of the right clavicle. The osseous structures otherwise appear intact. IMPRESSION: An oblique fracture is noted involving the lateral aspect of the right clavicle. No other acute osseous traumatic injury identified on this portable examination. No radiographic evidence for pulmonary contusive injury, pleural effusion or pneumothorax. Electronically signed by: Tristan Rivera MD 01/19/25 01:09 AM Pelvis X-Ray 01/18/25 22:21 Exam(s): XR PELVIS, 1-2 views EXAM: XR Pelvis, 1 or 2 Views CLINICAL HISTORY: Trauma. TECHNIQUE: Frontal view of the pelvis. COMPARISON: No relevant prior studies available. FINDINGS: Bones/joints: Incidental moderately severe degenerative changes of the lumbar spine. No acute fracture. No dislocation. Soft tissues: Unremarkable. IMPRESSION: Negative radiographic evaluation of the pelvis. Electronically signed by: Tristan Rivera MD 01/19/25 01:10 AM Abdomen/Pelvis CT 01/18/25 22:31 EXAM: CT abd pelvis IV con only CLINICAL HISTORY: trauma TECHNIQUE: Contiguous axial images were obtained from the level of the diaphragm to the pubic symphysis with intravenous contrast. Coronal and sagittal reconstructions were likewise performed and indicated to increase the sensitivity for detecting clinically relevant pathology. If IV contrast material had not been administered, the likelihood of detecting abnormalities relevant to the patient's condition would have been substantially decreased. CT scan was performed according to ALARA (as low as reasonable achievable). COMPARISON: 01/05/2025 04:31:00 [place] FINDINGS: The liver is normal in size and attenuation. No focal liver lesions are seen. There is no intra or extrahepatic biliary ductal dilatation. Hepatic vasculature is patent. The gallbladder is present. The spleen, pancreas, and adrenal glands are unremarkable. The kidneys are normal in size and attenuation. There is no hydronephrosis or perinephric fat stranding. Few tiny concretions are noted in right kidney. The ureters are normal in caliber and no ureteral calculi are seen. The bladder is normal in contour. Pelvic viscera are unremarkable. No focal or diffuse bowel wall thickening or evidence of bowel obstruction is identified. No evidence of inflamed appendix. Abdominal and pelvic vasculature is patent. No adenopathy or fluid collections are seen. No aggressive appearing osseous lesions are identified. Multiple small uncomplicated sigmoid colonic diverticulosis IMPRESSION: Few tiny concretions are noted in right kidney.-stable. Multiple small uncomplicated sigmoid colonic diverticulosis -stable. No other new interval abnormality since prior study. Electronically signed by Fernando Fuller 01-19-2025 01:[address] 01/18/25 22:31 EXAM: CT cervical spine wo con CLINICAL HISTORY: trauma TECHNIQUE: Computed tomography of the cervical spine performed without intravenous contrast. Contiguous axial images were obtained from the skull base to T2, with sagittal and coronal reformatted images reconstructed from the axial data. CT scan was performed according to ALARA (as low as reasonable achievable). COMPARISON: 02/2025 04:30:00 [place]. FINDINGS: Loss of cervical lordosis - suggest possibility of muscle spasm/positional. Degenerative changes involving cervical spine in the form of multilevel marginal osteophytes, disc space reduction and facetal arthrosis. Left sided partial laminectomy is noted through C5 and C6 level. Partial fusion of C5 and C6 vertebral body. Cervical vertebral bodies are normal in height and alignment, with no evidence of fracture or subluxation. Lateral masses of C1 are symmetrical, and the dens is intact. Prevertebral soft tissues are not widened. The remaining suprahyoid and infrahyoid soft tissues in the neck are unremarkable. Posterior uncovertebral arthrosis is noted at C5-C6 and C6-C7 levels which indenting ventral thecal sac and causes bilateral neuroforaminal narrowing. Thyroid gland appears unremarkable. IMPRESSION: 1.No acute fracture or subluxation in the cervical spine. 2.Cervical spondylosis. 3.No other new interval abnormality since prior study. Electronically signed by Fernando Fuller 01-19-2025 01:[address] 01/18/25 22:31 EXAM: CT chest diagnostic w con CLINICAL HISTORY: trauma TECHNIQUE: Contiguous axial images were obtained from the neck base through the upper abdomen following intravenous administration of contrast material. If IV contrast material had not been administered, the likelihood of detecting abnormalities relevant to the patient's condition would have been substantially decreased. In addition, sagittal and coronal reconstructions were performed. CT scan was performed according to ALARA (as low as reasonable achievable). COMPARISON: None. FINDINGS: Multiple subpleural atelectatic bands are noted involving bilateral lower lobe. Rest of lungs are clear, The central airways are patent. There are no pleural effusions. No pneumothorax is seen. No axillary, hilar, or mediastinal adenopathy is identified. The visualized thyroid is unremarkable. The heart, aorta, and pulmonary arteries are of normal size and configuration. No pericardial effusion is identified. Imaged portions of the upper abdomen are unremarkable. No aggressive appearing osseous lesions are identified. Old fracture of left fourth rib. Comminuted mildly displaced fracture involving lateral end of right clavicle. IMPRESSION: 1.Multiple subpleural atelectatic bands are noted involving bilateral lower lobe. 2.Comminuted mildly displaced fracture involving lateral end of right clavicle. 3.No obvious acute trauma related intrathoracic abnormality seen. Electronically signed by Fernando Fuller 01-19-2025 01:[address] 01/18/25 22:31 EXAM: CT head/brain wo con CLINICAL HISTORY: trauma TECHNIQUE: Multiple axial images are obtained from the skull base to the vertex without contrast. CT scan was performed according to ALARA (as low as reasonable achievable). COMPARISON: 04:11:34 [place]. FINDINGS: There is cerebral atrophy. No evidence of space occupying lesion, hemorrhage, edema, mass effect, midline shift, extra axial collection, or hydrocephalus is noted. Basal cisterns are symmetric and normal in size and configuration. There are scattered periventricular hypodensities as can be seen with chronic microvascular ischemic changes. The alcala-white matter differentiation is preserved. Visualized paranasal sinuses and mastoid air cells are well aerated. Orbital contents are within normal limits. Bony structures are intact. Scalp hematoma is noted in right frontal region.-new IMPRESSION: 1. No evidence of acute intracranial abnormality is demonstrated. 2. Chronic microvascular ischemic changes. 3. Cerebral atrophy. 4. Scalp hematoma is noted in right frontal region.-new finding. No other new interval abnormality since prior study. Electronically signed by Fernando Fuller 01-19-2025 01:[address] 01/18/25 22:31 EXAM: CT lumbar spine w con CLINICAL HISTORY: trauma TECHNIQUE: Multiple contiguous axial images were obtained through the lumbar spine without IV contrast. Sagittal and coronal reformatted images were obtained from the axial data. CT scan was performed according to ALARA (as low as reasonable achievable). COMPARISON: None. FINDINGS: Loss of lumbar lordosis - suggest possibility of muscle spasm/positional. Degenerative changes involving lumbar spine in the form of multilevel marginal osteophytes, disc space reduction and facetal arthrosis. Vacuum phenomenon are noted involving multiple intervertebral disc Mild retrolisthesis of L2 over L3 vertebra. Mild anterolisthesis of L4 over L5 vertebra. Lumbar vertebral bodies are maintained in height and alignment. No vertebral destructive changes are seen. Posterior disc osteophyte complex is noted through L1-L2 to L5-S1 level which indenting ventral thecal sac and causes bilateral lateral recess and neural foraminal narrowing at respective levels. Paravertebral soft tissues are unremarkable. Diffuse atherosclerotic calcifications are noted involving visualized abdominal aorta with multifocal ectasia. IMPRESSION: 1. Lumbar spondylosis. 2. No obvious acute trauma related abnormality seen. Electronically signed by Fernando Fuller 01-19-2025 01:41 AM Shoulder X-Ray 01/18/25 22:31 Exam(s): XR SHOULDER, 2+ views EXAM: XR Right Shoulder Complete, 2 or More Views CLINICAL HISTORY: fall. TECHNIQUE: Two or more views of the right shoulder. COMPARISON: No relevant prior studies available. FINDINGS: Bones/joints: Predominately nondisplaced oblique fracture involving the lateral aspect of the right clavicle. The acromioclavicular joint is maintained. The scapula and humerus are intact. The regional ribs are intact. No dislocation. Soft tissues: Unremarkable. IMPRESSION: Predominately nondisplaced oblique fracture involving the lateral aspect of the right clavicle. The acromioclavicular joint is maintained. Electronically signed by: Tristan Rivera MD 01/19/25 01:[address] 01/18/25 22:31 EXAM: CT thoracic spine w con CLINICAL HISTORY: trauma TECHNIQUE: Multiple contiguous axial images were obtained through the thoracic spine without IV contrast. Sagittal and coronal reformatted images were obtained from the axial data. CT scan was performed according to ALARA (as low as reasonable achievable). COMPARISON: None. FINDINGS: Degenerative changes involving thoracic spine in the form of multilevel marginal osteophytes, disc space reduction and facetal arthrosis. The alignment of the thoracic spine is maintained.Thoracic vertebral bodies are maintained in height and alignment. No vertebral destructive changes are seen.C7-T1: No disc bulge. No canal stenosis. No neuroforaminal narrowing. T1-T2: No disc bulge. No canal stenosis. No neuroforaminal narrowing. T2-T3: No disc bulge. No canal stenosis. No neuroforaminal narrowing. T3-T4: No disc bulge. No canal stenosis. No neuroforaminal narrowing. T4-T5: No disc bulge. No canal stenosis. No neuroforaminal narrowing. T5-T6: Disc osteophyte complex, indenting ventral thecal sac and causing bilateral neural foraminal narrowing. T6-T7: No disc bulge. No canal stenosis. No neuroforaminal narrowing. T7-T8: No disc bulge. No canal stenosis. No neuroforaminal narrowing. T8-T9: No disc bulge. No canal stenosis. No neuroforaminal narrowing. T9-T10: No disc bulge. No canal stenosis. No neuroforaminal narrowing. T10-T11: Disc osteophyte complex, indenting ventral thecal sac and causing bilateral neural foraminal narrowing. T11-T12: No disc bulge. No canal stenosis. No neuroforaminal narrowing.Paravertebral soft tissues are unremarkable. Visualized lung parenchyma appears unremarkable. IMPRESSION: Thoracic spondylosis changes. No obvious acute trauma related abnormality seen. Electronically signed by Fernando Fuller 01-19-2025 01:55 AM PG Care Time/CCT Total # of Minutes Spent Total Time Spent with Patient: Total time spent is greater than 50% in coordination of care (as documented) at patient's floor/unit and/or counseling patient: Coding Level of Care Code 56115 INT INP/OBS CARE MIN Diagnoses Closed fracture of right clavicle S42.031A Clavicle location: lateral end Encounter type: initial encounter Fracture alignment: displaced Torsades de pointes I47.21 Essential (primary) hypertension I10 Hyperlipidemia E78.5 GERD without esophagitis K21.9 (1) Closed fracture of right clavicle Clavicle location: lateral end Encounter type: initial encounter Fracture alignment: displaced Qualified Code(s): S42.031A - Displaced fracture of lateral end of right clavicle, initial encounter for closed fracture
[2025-01-19] MEDS ORDERED: 0.2 MICRON FILTER SET 1 EACH IV ONE (03:06)
[2025-01-19] MEDS ORDERED: POLYETHYLENE (MIRALAX) 17 GM PACK PO PRN (03:06)
[2025-01-19] MEDS: AMIODARONE / D5W 360 MG/200 ML BAG IV ONE (03:26)
[2025-01-19 03:33] LABS: Phosphorus 2.5 mg/dl (2.5-4.9)
[2025-01-19] MEDS: CALCIUM GLUCONATE 1,000 MG/60 ML BAG IV STA (03:42)
[2025-01-19] MEDS: AMIODARONE / D5W 360 MG/200 ML BAG IV SCH (04:57)
[2025-01-19] MEDS: POTASSIUM CHLORIDE CRTAB 20 MEQ TABCR PO STA (04:58)
[2025-01-19 06:58] LABS: Hematocrit (blood only) 37.7 % (37.0-47.0); Hemoglobin 12.8 g/dl (12.0-16.0); Mean Corpuscular Hemoglobin 30.8 pg (25.0-34.0); Mean Corpuscular Volume 90.8 fL (80.0-100.0); Mean Platelet Volume 9.2 fL (9.4-12.4); Platelet Count 181 K/uL (130-400); RDW Coefficient of Variation 12.6 % (11.5-14.5); RDW Standard Deviation 41.7 fL (36.4-46.3); Red Blood Count 4.15 M/uL (4.20-5.40); White Blood Count 9.98 K/ul (4.8-10.8)
[2025-01-19 08:11] LABS: Magnesium 2.2 mg/dl (1.7-2.4); Potassium 3.6 mmol/L (3.5-5.1)
[2025-01-19 08:16] LABS: Creatinine Clr Calc Pharmacy 58.7 ml/min
[2025-01-19] MEDS: QUEtiapine FUMARATE 25 MG TABLET PO SCH ×2 (08:37→16:55)
[2025-01-19] MEDS: MEMANTINE HCL 10 MG TAB PO SCH (08:37)
[2025-01-19] MEDS: valACYclovir HCL 500 MG TABLET PO SCH (08:37)
[2025-01-19] MEDS: ROSUVASTATIN CALCIUM 10 MG TAB PO SCH (08:38)
[2025-01-19] MEDS: ONDANSETRON INJ 2 MG/ML 2 ML VIAL ONE (08:38)
[2025-01-19] MEDS: SENNA 8.6 MG TAB PO SCH (08:38)
[2025-01-19] MEDS ORDERED: AMIODARONE / D5W 360 MG/200 ML BAG IV SCH (09:05)
[2025-01-19] MEDS: ONDANSETRON INJ 2 MG/ML 2 ML VIAL IV STA (09:13)
--- NOTE | 2025-01-19 09:24 | Cardiology Consultation ---
Date of Consultation January 19, 2025 History of Present Illness Attending Physician: Chad Naylor MD Allergies Allergy/AdvReac Type Severity Reaction Status Date / Time metronidazole Allergy Unknown CAN'T Verified 01/18/25 23:32 REMEMBER simvastatin [From Zocor] Allergy Unknown CAN'T Verified 01/18/25 23:32 REMEMBER ciprofloxacin [From Cipro] AdvReac Intermediate vertigo Verified 01/18/25 23:32 Home Medications Medication Instructions Recorded Confirmed Type leavnkq-tflqbcldnhlqm-tjxkydtc 250 1 tab PO Q6H PRN Migraine Headache 05/05/24 01/18/25 History mg-250 mg-65 mg tablet (Excedrin Migraine) cholecalciferol (vitamin D3) 25 25 mcg PO QAM 05/05/24 01/18/25 History mcg (1,000 unit) tablet (Vitamin D3) donepezil 10 mg tablet 10 mg PO QPM 05/05/24 01/18/25 History naproxen sodium 220 mg tablet 220 mg PO Q12H PRN Pain 05/05/24 01/18/25 History quetiapine 25 mg tablet 37.5 mg PO .DAILY @ 1700 05/05/24 01/18/25 History rosuvastatin 10 mg tablet 10 mg PO QAM 05/05/24 01/18/25 History multivitamin 1 tab PO QAM 06/11/24 01/18/25 History memantine 10 mg tablet 10 mg PO BID 09/13/24 01/18/25 History potassium chloride 10 mEq 10 meq PO QAM 09/13/24 01/18/25 History capsule,extended release quetiapine 25 mg tablet 12.5 mg PO QAM 09/13/24 01/18/25 History valacyclovir 1 gram tablet 1,000 mg PO QAM 09/13/24 01/18/25 History polyethylene glycol 3350 17 17 g PO DAILY PRN Constipation 01/18/25 01/18/25 History gram/dose oral powder (Miralax) sennosides 8.6 mg tablet (senna) 8.6 mg PO QAM 01/18/25 01/18/25 History Patient History Medical History Right ureteral calculus Osteoporosis Atherosclerosis Fall from standing Abdominal pain Acute subdural hematoma History of diverticulitis Dementia Knee pain Anserine bursitis Gait abnormality Gait abnormality Cervicalgia Hypertension Osteopenia after menopause Hypokalemia Kidney stone on right side Diverticulitis Hyperlipemia Other cervical disc displacement, mid-cervical region, unspecified level Dementia Abdominal pain, RUQ Carpal tunnel syndrome Chronic sinusitis Fatigue Hoarseness Other and unspecified hyperlipidemia Hypertrophy of both inferior nasal turbinates Primary osteoarthritis, unspecified hand Sleep apnea Stricture of cervix Migraines Vertigo Surgical History History of sinus surgery H/O ovarian cystectomy Status post medial meniscus repair Cervical vertebral fusion History of carpal tunnel surgery History of arthroplasty S/P excision of Flannery's neuroma History of shoulder surgery Family History Father Emphysema lung Asthma Sinusitis Mother Stroke syndrome Brother Stroke syndrome Epilepsy Esophageal cancer Sinusitis Coronary heart disease Sister Sinusitis Breast cancer Thoracic spinal stenosis Aunt Stroke Uncle Stroke Grandmother Cancer Denies family history of Ovarian cancer Prostate cancer Myocardial infarction Lung cancer Colorectal cancer Social History Smoking Status: Never smoker Second Hand Exposure: No; Do You Dip or Chew Tobacco: No; Hx Alcohol Use: No Hx Substance Use: No Preferred Language: Amharic Communication Ability: Effective Communication Ability Comment: daughter reports decreased ability in last few months Visual Impairment: Limited Hearing Ability: Use of Hearing Aid Public Relations Required: No Beliefs That Will Affect Care: None marital status: / Current Living Situation: Custodial Current Living Situation Comment: [facility] current occupational status: retired How many Children do You have: 3 Other Information That Helps Us Care for You: No Feels Safe at Home: Yes Safety Concerns: Feels Safe At This Time Childhood Exposure to Second-Hand Smoke: Yes (dad smoked in house ) caffeine: Yes (soda ) Dental Care, Regularly: Yes Physical Activity Frequency: Does not Exercise Seatbelt Use: always Sunscreen Use: Yes (sometimes ) Assistive Devices: None and Cane Results & Data Vital Signs (Past 12 Hours) Vital Signs Temp Pulse Pulse Resp BP BP Pulse Ox 01/19/25 08:21 67 20 130/64 96 01/19/25 07:00 63 18 131/60 96 01/19/25 06:12 36.7 C 63 20 100/56 L 96 01/19/25 03:06 65 20 120/62 98 01/19/25 02:45 36 L 01/19/25 02:00 40 L 14 119/63 98 01/19/25 00:00 46 L 16 138/54 L 91 01/18/25 23:21 44 L 20 93 01/18/25 23:09 107 H 17 01/18/25 23:08 62 01/18/25 23:01 169/103 H 01/18/25 22:54 45 L 20 97 01/18/25 22:36 46 L 24 97 01/18/25 22:31 150/97 H 01/18/25 22:14 45 L 01/18/25 22:13 36.7 C 47 L 18 156/102 H 99 01/18/25 22:10 87 O2 Del Method O2 Flow Rate 01/19/25 08:21 Nasal Cannula 3 01/19/25 07:00 Nasal Cannula 2 01/19/25 06:12 Nasal Cannula 3 01/19/25 03:06 Nasal Cannula 3 01/19/25 02:45 01/19/25 02:00 Nasal Cannula 3 01/19/25 00:00 Nasal Cannula 3 01/18/25 23:21 Room Air 01/18/25 23:09 01/18/25 23:08 01/18/25 23:01 01/18/25 22:54 Room Air 01/18/25 22:36 Room Air 01/18/25 22:31 01/18/25 22:14 01/18/25 22:13 Room Air 01/18/25 22:10
--- NOTE | 2025-01-19 09:35 | Cardiology Consultation ---
Date of Consultation January 19, 2025 Assessment & Plan (1) Polymorphic ventricular tachycardia: (2) Left bundle branch block: (3) Syncope and collapse: Plan Will check ECHO to assess LV function. Cont IV amio for now-can transition to po amio later today. Repeat troponin added to repeated labs. DNR status Would not perform other cardiac testing at this time Further medical therapy depending on ECHO results and EF History of Present Illness Reason for Consultation: polymorphic VT Requesting Physician: Dr. Faiza Rojas Attending Physician: Chad Naylor MD History of Present Illness Cornelia Krause is an 84 y/o woman with a hx of LBBB on ECG with multiple episodes of falls and "unresponsive episodes, resides in [place] who presents to the ER after same with right clavicle fracture. While here noted to have developed polymorphic VT, rec'd short course of CPR, was given IV magnesium as well as started on IV amiodarone. She has significant dementia. He son was contacted by the ER and her DNR code status was confirmed by the ER. She is resting comfortably at this time, answers some questions, denies CP or SOB. Her right arm is in a sling. Seen by ortho-no surgery required. Baseline ECG shows NSR LBBB. Prior ECG from earlier in January shows same, but has significant ST elevation in V1-V2.. That admission was also for a fall. Allergies Allergy/AdvReac Type Severity Reaction Status Date / Time metronidazole Allergy Unknown CAN'T Verified 01/18/25 23:32 REMEMBER simvastatin [From Zocor] Allergy Unknown CAN'T Verified 01/18/25 23:32 REMEMBER ciprofloxacin [From Cipro] AdvReac Intermediate vertigo Verified 01/18/25 23:32 Home Medications Medication Instructions Recorded Confirmed Type riwzcra-hahbyydmwnqfz-osmvzqhk 250 1 tab PO Q6H PRN Migraine Headache 05/05/24 01/18/25 History mg-250 mg-65 mg tablet (Excedrin Migraine) cholecalciferol (vitamin D3) 25 25 mcg PO QAM 05/05/24 01/18/25 History mcg (1,000 unit) tablet (Vitamin D3) donepezil 10 mg tablet 10 mg PO QPM 05/05/24 01/18/25 History naproxen sodium 220 mg tablet 220 mg PO Q12H PRN Pain 05/05/24 01/18/25 History quetiapine 25 mg tablet 37.5 mg PO .DAILY @ 1700 05/05/24 01/18/25 History rosuvastatin 10 mg tablet 10 mg PO QAM 05/05/24 01/18/25 History multivitamin 1 tab PO QAM 06/11/24 01/18/25 History memantine 10 mg tablet 10 mg PO BID 09/13/24 01/18/25 History potassium chloride 10 mEq 10 meq PO QAM 09/13/24 01/18/25 History capsule,extended release quetiapine 25 mg tablet 12.5 mg PO QAM 09/13/24 01/18/25 History valacyclovir 1 gram tablet 1,000 mg PO QAM 09/13/24 01/18/25 History polyethylene glycol 3350 17 17 g PO DAILY PRN Constipation 01/18/25 01/18/25 His tory gram/dose oral powder (Miralax) sennosides 8.6 mg tablet (senna) 8.6 mg PO QAM 01/18/25 01/18/25 History Patient History Medical History Right ureteral calculus Osteoporosis Atherosclerosis Fall from standing Abdominal pain Acute subdural hematoma History of diverticulitis Dementia Knee pain Anserine bursitis Gait abnormality Gait abnormality Cervicalgia Hypertension Osteopenia after menopause Hypokalemia Kidney stone on right side Diverticulitis Hyperlipemia Other cervical disc displacement, mid-cervical region, unspecified level Dementia Abdominal pain, RUQ Carpal tunnel syndrome Chronic sinusitis Fatigue Hoarseness Other and unspecified hyperlipidemia Hypertrophy of both inferior nasal turbinates Primary osteoarthritis, unspecified hand Sleep apnea Stricture of cervix Migraines Vertigo Surgical History History of sinus surgery H/O ovarian cystectomy Status post medial meniscus repair Cervical vertebral fusion History of carpal tunnel surgery History of arthroplasty S/P excision of Flannery's neuroma History of shoulder surgery Family History Father Emphysema lung Asthma Sinusitis Mother Stroke syndrome Brother Stroke syndrome Epilepsy Esophageal cancer Sinusitis Coronary heart disease Sister Sinusitis Breast cancer Thoracic spinal stenosis Aunt Stroke Uncle Stroke Grandmother Cancer Denies family history of Ovarian cancer Prostate cancer Myocardial infarction Lung cancer Colorectal cancer Social History Smoking Status: Never smoker Second Hand Exposure: No; Do You Dip or Chew Tobacco: No; Hx Alcohol Use: No Hx Substance Use: No Preferred Language: Greek Communication Ability: Effective Communication Ability Comment: daughter reports decreased ability in last few months Visual Impairment: Limited Hearing Ability: Use of Hearing Aid Groover Operator Required: No Beliefs That Will Affect Care: None marital status: / Current Living Situation: Skilled Nursing Current Living Situation Comment: [facility] current occupational status: retired How many Children do You have: 3 Other Information That Helps Us Care for You: No Feels Safe at Home: Yes Safety Concerns: Feels Safe At This Time Childhood Exposure to Second-Hand Smoke: Yes (dad smoked in house ) caffeine: Yes (soda ) Dental Care, Regularly: Yes Physical Activity Frequency: Does not Exercise Seatbelt Use: always Sunscreen Use: Yes (sometimes ) Assistive Devices: None and Cane Review of Systems Review of Systems: All systems reviewed & are unremarkable except as noted in HPI & below Physical Exam Physical Exam: resting comfortably Respiratory: decreased BS b/l Cardiovascular: summation gallop SYLVIE at base Results & Data Vital Signs (Past 12 Hours) Vital Signs Temp Pulse Pulse Resp BP BP Pulse Ox 01/19/25 08:21 67 20 130/64 96 01/19/25 07:00 63 18 131/60 96 01/19/25 06:12 36.7 C 63 20 100/56 L 96 01/19/25 03:06 65 20 120/62 98 01/19/25 02:45 36 L 01/19/25 02:00 40 L 14 119/63 98 01/19/25 00:00 46 L 16 138/54 L 91 01/18/25 23:21 44 L 20 93 01/18/25 23:09 107 H 17 01/18/25 23:08 62 01/18/25 23:01 169/103 H 01/18/25 22:54 45 L 20 97 01/18/25 22:36 46 L 24 97 01/18/25 22:31 150/97 H 01/18/25 22:14 45 L 01/18/25 22:13 36.7 C 47 L 18 156/102 H 99 01/18/25 22:10 87 O2 Del Method O2 Flow Rate 01/19/25 08:21 Nasal Cannula 3 01/19/25 07:00 Nasal Cannula 2 01/19/25 06:12 Nasal Cannula 3 01/19/25 03:06 Nasal Cannula 3 01/19/25 02:45 01/19/25 02:00 Nasal Cannula 3 01/19/25 00:00 Nasal Cannula 3 01/18/25 23:21 Room Air 01/18/25 23:09 01/18/25 23:08 01/18/25 23:01 01/18/25 22:54 Room Air 01/18/25 22:36 Room Air 01/18/25 22:31 01/18/25 22:14 01/18/25 22:13 Room Air 01/18/25 22:10 Laboratory Results Abnormal lab results 01/18/25 01/18/25 01/19/25 Range/Units 22:25 22:32 06:31 RBC 4.15 L (4.20-5.40) M/uL MCHC 36.2 H (32.0-36.0) g/dL MPV 9.3 L 9.2 L (9.4-12.4) fL POC Total CO2 23 L (24-31) mmol/L Glucose 114 H 102 H (70-99(Fasting)) mg/dl POC Glucose (other) 112 H (70-99) mg/dl POC Ioniz Calcium Celine 1.11 L (1.12-1.32) mmol/l ECG Additional Comments: ECG NSR LBBB 1st AV
--- NOTE | 2025-01-19 10:19 | Orthopedic Consultation ---
Date of Service January 19, 2025 Assessment & Plan (1) Closed fracture of right clavicle: Assessment: Essentially nondisplaced distal clavicle fracture Plan: I had a long discussion today with the patient about her right shoulder pathology with ample amount time for patient ask any question or stated concerns. All question concerns were answered to the patient satisfaction. This point in time, she does have a nondisplaced distal clavicle fracture to the right shoulder. This is nonoperative in nature and can be treated conservatively. At this time, she should remain in her sling that she was placed in the emergency department and. She will maintain the sling for at least 2 weeks or until she is evaluated by orthopedics. She is to remain nonweightbearing to the right upper extremity. She can continue current pain analgesic regimen at this point. Would recommend working with physical therapy and Occupational Therapy to help with motion of the remaining right upper extremity. She can follow-up with [facility] orthopedics in 2 to 3 weeks for continued postfracture care or sooner if needed. Please reach out to [facility] orthopedics if any questions or concerns were to arise. History of Present Illness Reason for Consultation: . Right clavicle fracture Requesting Physician: . Attending Physician: Chad Naylor MD . Patient is a 84-year-old female with dementia who presents to the emergency department early this morning after sustaining an unwitnessed fall today. She has had multiple falls in the last several weeks. She really does not give a good history today so most of the history today is from previous documentation. At the emergency department, she was accompanied by her son who did give this information to us. Today, she notes that her pain to the right shoulder is present really just with range of motion and to direct touch. She notes that her current pain analgesic regimen is doing quite well. She denies any neck pain, distal extremity pain, numbness/ting, or paresthesias. She denies any other concerns today. Allergies Allergy/AdvReac Type Severity Reaction Status Date / Time metronidazole Allergy Unknown CAN'T Verified 01/18/25 23:32 REMEMBER simvastatin [From Zocor] Allergy Unknown CAN'T Verified 01/18/25 23:32 REMEMBER ciprofloxacin [From Cipro] AdvReac Intermediate vertigo Verified 01/18/25 23:32 Home Medications Medication Instructions Recorded Confirmed Type dsiwpeb-iqognhtoeogyo-jfgnctbr 250 1 tab PO Q6H PRN Migraine Headache 07/02/24 03/17/25 History mg-250 mg-65 mg tablet (Excedrin Migraine) cholecalciferol (vitamin D3) 25 25 mcg PO QAM 05/05/24 01/18/25 History mcg (1,000 unit) tablet (Vitamin D3) donepezil 10 mg tablet 10 mg PO QPM 05/05/24 01/18/25 History naproxen sodium 220 mg tablet 220 mg PO Q12H PRN Pain 05/05/24 01/18/25 History quetiapine 25 mg tablet 37.5 mg PO .DAILY @ 1700 05/05/24 01/18/25 History rosuvastatin 10 mg tablet 10 mg PO QAM 05/05/24 01/18/25 History multivitamin 1 tab PO QAM 06/11/24 01/18/25 History memantine 10 mg tablet 10 mg PO BID 09/13/24 01/18/25 History potassium chloride 10 mEq 10 meq PO QAM 09/13/24 01/18/25 History capsule,extended release quetiapine 25 mg tablet 12.5 mg PO QAM 09/13/24 01/18/25 History valacyclovir 1 gram tablet 1,000 mg PO QAM 09/13/24 01/18/25 History polyethylene glycol 3350 17 17 g PO DAILY PRN Constipation 01/18/25 01/18/25 History gram/dose oral powder (Miralax) sennosides 8.6 mg tablet (senna) 8.6 mg PO QAM 01/18/25 01/18/25 History Past Med/Surg History Problem List (Updated 01/19/25 @ 09:49 by Rosa Padilla, DO) Syncope and collapse Polymorphic ventricular tachycardia Acute head trauma (Acute) Closed fracture of right clavicle (Acute) Fall (Acute) Ventricular tachycardia (Acute) Dementia (Acute) Torsades de pointes (Acute) Renal cyst (Chronic) Kidney stones (Chronic) Nausea & vomiting (Acute) Abdominal pain (Acute) Fall from standing (Acute) Hyperlipidemia Depression Essential (primary) hypertension Unresponsive episode (Acute) Constipation (Acute) Abdominal pain Dementia (Acute) Depression Vitamin D insufficiency Chronic kidney disease, stage II (mild) Osteoporosis, unspecified Chronic osteoarthritis (Chronic) GERD without esophagitis (Chronic) Hyperlipidemia (Chronic) Left bundle branch block (Chronic) Pre-diabetes (Chronic) Sensorineural hearing loss (SNHL) of both ears (Chronic) Atherosclerosis of both carotid arteries (Chronic) Medical History Right ureteral calculus Osteoporosis Atherosclerosis Fall from standing Abdominal pain Acute subdural hematoma History of diverticulitis Dementia Knee pain Anserine bursitis Gait abnormality Gait abnormality Cervicalgia Hypertension Osteopenia after menopause Hypokalemia Kidney stone on right side Diverticulitis Hyperlipemia Other cervical disc displacement, mid-cervical region, unspecified level Dementia Abdominal pain, RUQ Carpal tunnel syndrome Chronic sinusitis Fatigue Hoarseness Other and unspecified hyperlipidemia Hypertrophy of both inferior nasal turbinates Primary osteoarthritis, unspecified hand Sleep apnea Stricture of cervix Migraines Vertigo Surgical History History of sinus surgery H/O ovarian cystectomy Status post medial meniscus repair Cervical vertebral fusion History of carpal tunnel surgery History of arthroplasty S/P excision of Flannery's neuroma History of shoulder surgery Family History Father Emphysema lung Asthma Sinusitis Mother Stroke syndrome Brother Stroke syndrome Epilepsy Esophageal cancer Sinusitis Coronary heart disease Sister Sinusitis Breast cancer Thoracic spinal stenosis Aunt Stroke Uncle Stroke Grandmother Cancer Denies family history of Ovarian cancer Prostate cancer Myocardial infarction Lung cancer Colorectal cancer Social History Smoking Status: Never smoker Second Hand Exposure: No; Do You Dip or Chew Tobacco: No; Hx Alcohol Use: No Hx Substance Use: No Preferred Language: Greek Communication Ability: Effective Communication Ability Comment: daughter reports decreased ability in last few months Visual Impairment: Limited Hearing Ability: Use of Hearing Aid Service Control Operator Required: No Beliefs That Will Affect Care: None marital status: / Current Living Situation: [facility] Current Living Situation Comment: [facility] current occupational status: retired How many Children do You have: 3 Other Information That Helps Us Care for You: No Feels Safe at Home: Yes Safety Concerns: Feels Safe At This Time Childhood Exposure to Second-Hand Smoke: Yes (dad smoked in house ) caffeine: Yes (soda ) Dental Care, Regularly: Yes Physical Activity Frequency: Does not Exercise Seatbelt Use: always Sunscreen Use: Yes (sometimes ) Assistive Devices: None and Cane Review of Systems All systems reviewed & are unremarkable except as noted in HPI & below. Physical Exam . Constitutional: WD/WN, vitals as above no acute distress Musculoskeletal: On physical examination of the right shoulder, no erythema, ecchymosis, edema, or other obvious deformities. She does have direct tenderness over the AC joint. Limited range of motion secondary to discomfort. Range of motion at the elbow, wrist, and all 5 digits intact. +2 radial pulse. Less than 2-second capillary refill. Normal sensation. Neurovascular intact. Results & Data Results & Data Laboratory Results . Diagnostic Findings . Shoulder X-Ray 01/18/25 22:31 Exam(s): XR SHOULDER, 2+ views EXAM: XR Right Shoulder Complete, 2 or More Views CLINICAL HISTORY: fall. TECHNIQUE: Two or more views of the right shoulder. COMPARISON: No relevant prior studies available. FINDINGS: Bones/joints: Predominately nondisplaced oblique fracture involving the lateral aspect of the right clavicle. The acromioclavicular joint is maintained. The scapula and humerus are intact. The regional ribs are intact. No dislocation. Soft tissues: Unremarkable. IMPRESSION: Predominately nondisplaced oblique fracture involving the lateral aspect of the right clavicle. The acromioclavicular joint is maintained. Electronically signed by: Tristan Rivera MD 01/19/25 01:10 AM PG Care Time/CCT Total # of Minutes Spent Total Time Spent with Patient: Total time spent is greater than 50% in coordination of care (as documented) at patient's floor/unit and/or counseling patient: Coding Level of Care Code 43294 IN/OBS CONSULT LVL 3,45M Diagnoses Closed fracture of right clavicle S42.031A Clavicle location: lateral end Encounter type: initial encounter Fracture alignment: displaced Additional Codes Fx Shoulder/Humerus - Clavicle: Clavicle ([id number]) (1) Closed fracture of right clavicle Clavicle location: lateral end Encounter type: initial encounter Fracture alignment: displaced Qualified Code(s): S42.031A - Displaced fracture of lateral end of right clavicle, initial encounter for closed fracture
[2025-01-19] MEDS: SODIUM CHLORIDE 0.9% 500 ML IV ONE (11:03)
[2025-01-19] MEDS: SODIUM CHLORIDE 0.9% 1,000 ML IV SCH (11:03)
[2025-01-19 11:23] LABS: Troponin I High Sensitivity 13.9 pg/ml (0-14)
[2025-01-19 11:59] VITALS: PULSE 67
--- NOTE | 2025-01-19 12:21 | Hospitalist Progress Note ---
Date of Service January 19, 2025 Assessment & Plan (1) Fall: Plan: Mechanical. Uncertain if she experienced a syncopal episode related to the polymorphic ventricular tachycardia. Supportive care. (2) Closed fracture of right clavicle: Plan: Orthopedic consultation and recommendations appreciated. This is nonoperative at this time. Right arm will be kept in a sling. Nonweightbearing status. (3) Polymorphic ventricular tachycardia: Plan: The patient has been seen by cardiology. Cardiac echo is pending. Continue amiodarone drip. Telemetry (4) Essential (primary) hypertension: Plan: Blood pressure is somewhat low this morning, January 19. IV fluid bolus has been ordered along with continuous IV fluids. (5) GERD without esophagitis: Plan: PPI therapy Plan OT and PT assessments have been requested. She probably will need SNF placement at discharge Admission and Anticipated Discharge Date Admission Date: January 19, 2025 Subjective The patient is nauseated this morning. Parenteral Zofran ordered. Orthopedic consultation noted. Her right clavicular fracture is nonoperative and she will wear a sling for the time being and is not in weightbearing status on the right upper extremity for now. OT and PT assessments requested. She has been seen by cardiology who believes she is having polymorphic ventricular tachycardic. She remains on amiodarone drip. Cardiac echo report is pending. Apparently she received several chest compressions while in the ED but currently is not having any significant rib pain. This will be closely followed. Review of Systems 2 Review of Systems: Constitutionalno fever or chills ENTno blurred vision, no double vision, no epistaxis, no sore throat Respiratoryno cough, no wheezing, no shortness of breath Cardiacno chest pain, no syncope GIshe has developed nausea this morning. She denies vomiting, diarrhea, melena, hematochezia GUno urinary retention, no urinary incontinence, no dysuria, no hematuria Musculoskeletalright clavicular tenderness at fracture site. No muscle tenderness Skinno bruising, no rashes, no pruritus Neurono isolated weakness, no paresthesia Psychno depression, no anxiety Physical Exam 2 Physical Exam: General-alert and oriented x3, no fever, no chills HEENT-head atraumatic and normocephalic, pupils equal and reactive to light, extraocular muscles intact Neck-no lymphadenopathy or thyromegaly, trachea midline Chest-clear to auscultation. No rales, wheezing or rhonchi Cardiac-regular rate and rhythm, normal S1 and S2 Abdomen-normal bowel sounds, no hepatosplenomegaly Extremities-no cyanosis, clubbing, or edema. Tenderness to palpation over the right distal clavicle at fracture site Neuro-cranial nerves II through XII intact, motor and sensory function within normal limits, strength symmetrical, no focal deficits Psych-normal affect, normal mood Results & Data Results & Data Vital Signs (Past 12 Hours) Vital Signs Temp Pulse Pulse Resp BP Pulse Ox O2 Del Method 01/19/25 11:58 67 20 113/49 L 97 Nasal Cannula 01/19/25 11:22 68 18 115/50 L 97 Nasal Cannula 01/19/25 10:47 67 20 105/48 L 97 Nasal Cannula 01/19/25 10:46 64 20 76/44 L 97 Nasal Cannula 01/19/25 10:44 63 18 79/49 L 97 Nasal Cannula 01/19/25 10:30 63 18 98/55 L 98 Nasal Cannula 01/19/25 08:21 67 20 130/64 96 Nasal Cannula 01/19/25 07:00 63 18 131/60 96 Nasal Cannula 01/19/25 06:12 36.7 C 63 20 100/56 L 96 Nasal Cannula 01/19/25 03:06 65 20 120/62 98 Nasal Cannula 01/19/25 02:45 36 L 01/19/25 02:00 40 L 14 119/63 98 Nasal Cannula O2 Flow Rate 01/19/25 11:58 3 01/19/25 11:22 3 01/19/25 10:47 3 01/19/25 10:46 3 01/19/25 10:44 3 01/19/25 10:30 3 01/19/25 08:21 3 01/19/25 07:00 2 01/19/25 06:12 3 01/19/25 03:06 3 01/19/25 02:45 01/19/25 02:00 3 Laboratory Results 01/19/25 06:31 01/19/25 06:31 PG Care Time/CCT Total # of Minutes Spent Total Time Spent with Patient: Total time spent is greater than 50% in coordination of care (as documented) at patient's floor/unit and/or counseling patient: Coding Level of Care Code 14673 SUB INP/OBS CARE 3/50MIN Diagnoses Fall W19.XXXA Closed fracture of right clavicle S42.031A Clavicle location: lateral end Encounter type: initial encounter Fracture alignment: displaced Polymorphic ventricular tachycardia I47.29 Essential (primary) hypertension I10 GERD without esophagitis K21.9 (2) Closed fracture of right clavicle Clavicle location: lateral end Encounter type: initial encounter Fracture alignment: displaced Qualified Code(s): S42.031A - Displaced fracture of lateral end of right clavicle, initial encounter for closed fracture
[2025-01-19] MEDS: MoRPHine SULFATE 2 MG/ML CARP IV STA (13:49)
[2025-01-19 14:17] VITALS: BP 120/82; RESP 24; O2SAT 99
--- NOTE | 2025-01-19 14:58 | Electrocardiogram Report ---
Test Reason : Blood Pressure : */* mmHG Vent. Rate : 36 BPM Atrial Rate : 36 BPM P-R Int : 188 ms QRS Dur : 126 ms QT Int : 558 ms P-R-T Axes : 73 2 141 degrees QTcB Int : 431 ms Sinus rhythm with 2:1 AV block Left bundle branch block Abnormal ECG When compared with ECG of 18-Jan-2025 22:11, T wave inversion now evident in Inferior leads T wave inversion more evident in Anterolateral leads Confirmed by Cory Barboza ([id number]) on 01/19/2025 2:58:28 PM [facility] Confirmed By: Cory Barboza
[2025-01-19] MEDS: ACETAMINOPHEN 325 MG TAB PO PRN (16:40)
[2025-01-19] MEDS ORDERED: DONEPEZIL HCL 10 MG TAB PO SCH (21:00)
--- NOTE | 2025-01-20 09:27 | Cardiology Progress Note ---
Date of Service January 20, 2025 Assessment & Plan (1) Polymorphic ventricular tachycardia: (2) Syncope and collapse: (3) Heart block atrioventricular: Admission and Anticipated Discharge Date Admission Date: January 19, 2025 Supervising Physician Co-Signing Physician Notes Discussed with family. Pt to remain DNR/comfort care. Plan for DC back to [place]. Thank you for the consult. Subjective Events of yesterday from ER again reviewed-pt developed significant heart block associated with hypotension necessitating DC of amiodarone. Case was discussed with her Daughter Phyllis. Decision was made to provide comfort care and not pursue further cardiac interventions.She was again se3en today with her son and daughter along with hospice. Plan is to cont comfort care and possibly DC Review of Systems Review of Systems: All systems reviewed & are unremarkable except as noted in HPI & below Physical Exam Physical Exam: no change
--- NOTE | 2025-01-20 11:17 | Discharge Summary ---
Discharge Summary Date of Service January 20, 2025 Principal Dx & Hospital Course #1 = Principal Diagnosis (1) Fall: Mechanical. Uncertain if she experienced a syncopal episode related to the polymorphic ventricular tachycardia. Supportive care. (2) Closed fracture of right clavicle: No planned intervention. Pain control measures as needed. Supportive care. She is comfort measures only at this time. (3) Polymorphic ventricular tachycardia: The patient has been seen by cardiology. She is now comfort measures only on hospice. Amiodarone infusion has been discontinued. 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 No further treatment Plan Discharged today, January 20, to inpatient hospice status Admission HPI Per Admitting Provider Brunilda Krause is an 84yo female with history of dementia, HTN, HLP and GERD presenting from [facility] with frequent falls. Patient's son is at bedside and assists with history. Patient has had at least 3 falls in the last several weeks. Patient had an unwitnessed fall today and has been complaining of significant neck pain, back pain and right shoulder pain. Her son reports that she has been very dizzy for the last 3 weeks and has been very unsteady on her feet. No additional complaints - son denies report of fever, chills, chest pain, palpitations, abdominal pain, nausea, vomiting, diarrhea. She has been eating and drinking fairly well. In the ER patient was noted to be in NSR as well as Type II 2nd degree. She did have a brief run of what appeared to be polymorphic ventricular tachycardia during which she was unresponsive. She received three chest compressions with return to NSR. She was given IV Magnesium as well as Amiodarone. ER Course: Amiodarone Magnesium Morphine NSS Zofran Discharge Exam General-unresponsive. No fever HEENT-head atraumatic and normocephalic, pupils equal and reactive to light, extraocular muscles intact Neck-no lymphadenopathy or thyromegaly, trachea midline Chest-scattered bilateral rhonchi. No rales, no wheezing Cardiac-regular rate and rhythm, normal S1 and S2 Abdomen-normal bowel sounds, no hepatosplenomegaly Extremities-no cyanosis, clubbing, or edema. Tenderness to palpation over the right distal clavicle at fracture site Neuro-cranial nerves II through XII intact, motor and sensory function within normal limits, strength symmetrical with generalized weakness, no focal deficits Psych-normal affect, normal mood Discharge Plan Discharge Items Patient Disposition: Hospice - Medical Facility Reason For Visit: FALLS, ARRHYTHMIA Discharge Diagnosis: Mechanical fall, right clavicular fracture, polymorphic ventricular tachycardia, second-degree AV block Mobitz type II Condition on Discharge: Serious Activity: As commented below Activity Comment: Bedrest Non-emergency contact: Primary Care Provider Call non-emergency contact if: your symptoms worsen Follow-up/Referrals: [facility],Anvik Daniel [Primary Care Provider] - Diet: Regular Addtl Attending Provider Instructions: She is discharged from acute care to inpatient hospice Pending Studies at Discharge: No Stand-Alone Forms: My [facility] Skilled Items Patient informed of condition?: Yes DNR: Yes Discharge Level of Care: Other Communicable Disease: No Discharge Prognosis: Deteriorating Lines: None Urinary Catheter: Yes Medications and DC Order Prescriptions: New fentanyl 12 mcg/hr patch 72 hour 1 patch transdermal Q72H Qty: 5 0RF morphine 2 mg/mL Syringe 1 mg IV Q3H PRNQty: 0 0RF acetaminophen 325 mg Tablet 650 mg PO Q4H PRNQty: 0 0RF Discontinued multivitamin Tablet 1 tab PO QAM sennosides [senna] 8.6 mg Tablet 8.6 mg PO QAM polyethylene glycol 3350 [Miralax] 17 gram/dose Powder 17 g PO DAILY PRN (Reason: Constipation) quetiapine 25 mg tablet 37.5 mg PO .DAILY @ 1700 donepezil 10 mg Tablet 10 mg PO QPM Rx Instructions: @ 1900 naproxen sodium 220 mg Tablet 220 mg PO Q12H PRN (Reason: Pain) Excedrin Migraine 250-250-65 mg Tablet 1 tab PO Q6H PRN (Reason: Migraine Headache) rosuvastatin 10 mg Tablet 10 mg PO QAM cholecalciferol (vitamin D3) [Vitamin D3] 25 mcg (1,000 unit) Tablet 25 mcg PO QAM quetiapine 25 mg tablet 12.5 mg PO QAM potassium chloride 10 mEq capsule, extended release 10 meq PO QAM valacyclovir 1 gram tablet 1,000 mg PO QAM memantine 10 mg tablet 10 mg PO BID Discharge Orders: Discharge Order (Routine); Ordered 01/20/25 Ordered By: Chad Naylor Admission Data Admit Date/Time: 01/19/25 02:11 Attending Provider: Chad Naylor Admit Provider: Faiza Rojas Primary Care Provider: Jasmin Chase Other Providers: Faiza Rojas; [facility] Stay Data Consultations 01/19/25 01:58 ED Decision to Admit Stat Diagnostic Imagining Performed 01/18/25 22:31 CT abd pelvis IV con only Stat CT cervical spine wo con Stat CT chest diagnostic w con Stat CT head/brain wo con Stat CT lumbar spine w con Stat CT thoracic spine w con Stat Pending Results Patient Have Any Pending Studies at Discharge: No Discharge Instructions Given to Patient (Per Discharging Provider) She is discharged from acute care to inpatient hospice Total Time Total Time Spent Total Time Spent (In Minutes): 45 minutes Coding Level of Care Code 28338 INP/OBS DISCH >30 MIN Diagnoses Fall W19.XXXA Closed fracture of right clavicle S42.031A Clavicle location: lateral end Encounter type: initial encounter Fracture alignment: displaced Polymorphic ventricular tachycardia I47.29 Essential (primary) hypertension I10 GERD without esophagitis K21.9
--- NOTE | 2025-01-21 17:40 | Electrocardiogram Report ---
Test Reason : Blood Pressure : */* mmHG Vent. Rate : 69 BPM Atrial Rate : 69 BPM P-R Int : 216 ms QRS Dur : 124 ms QT Int : 570 ms P-R-T Axes : 67 -1 174 degrees QTcB Int : 610 ms Sinus rhythm with 1st degree A-V block Left bundle branch block Abnormal ECG When compared with ECG of 19-Jan-2025 11:41, Vent. rate has increased by 33 bpm QT has lengthened Confirmed by Cory Barboza ([id number]) on 01/21/2025 5:40:36 PM [facility] Confirmed By: Cory Barboza
== END 2025-01-20 12:44 | disposition hospice, inpatient (51) | DRG 563 ==
LOC: ED 22:04 → EDINP 01-19 02:11 → SUATTDRO 01-19 02:11 → 3W 01-19 03:07

== ENCOUNTER 2025-01-20 11:18 | Inpatient (IN) ==
[2025-01-20] MEDS ORDERED: ONDANSETRON INJ 2 MG/ML 2 ML VIAL IV PRN (13:52)
[2025-01-20] MEDS: fentaNYL 12 MCG/HR TDSY TD SCH (15:17)
[2025-01-20] MEDS: MoRPHine SULFATE 2 MG/ML CARP IV PRN (15:19)
[2025-01-20] MEDS: CHECK fentaNYL PATCH PLACEMENT SCH (16:35)
[2025-01-20] MEDS: ACETAMINOPHEN 325 MG TAB PO PRN (17:54)
[2025-01-21] MEDS ORDERED: ATROPINE SULFATE 1% OP SOLN 5 ML BTL SL PRN (02:38)
[2025-01-21] MEDS ORDERED: GLYCOPYRROLATE 0.2 MG/ML VIAL IV PRN (02:38)
[2025-01-21] MEDS ORDERED: ONDANSETRON INJ 2 MG/ML 2 ML VIAL IV PRN (02:38)
[2025-01-21] MEDS: LORazepam 2 MG/1 ML VIAL IV PRN (03:31)
[2025-01-21 07:56] VITALS: BP 149/72; PULSE 87; RESP 18; TEMP 99.3; O2SAT 90
--- NOTE | 2025-01-21 11:49 | Hospitalist Progress Note ---
Date of Service January 21, 2025 Assessment & Plan (1) Closed fracture of right clavicle: Plan: Nonsurgical management. Pain control measures. Right arm in sling. Appreciate orthopedic consultation and recommendations (2) Fall: Plan: Mechanical. Resulting in fracture of the distal right clavicle. Supportive care (3) Polymorphic ventricular tachycardia: Plan: Seen on admission. She was evaluated by cardiology. She was temporarily on an amiodarone drip which has been discontinued due to comfort measures only status at this time (4) Dementia: Plan: Chronic. Supportive care (5) Essential (primary) hypertension: Plan: No further treatment. Comfort measures only (6) Chronic kidney disease, stage II (mild): Plan: No further treatment. Comfort measures only Plan Case management was informed that the patient's is not imminent and she will require placement with hospice services Admission and Anticipated Discharge Date Admission Date: January 20, 2025 Subjective The patient is alert and oriented. Her is not imminent. I messaged case management about looking into placement with hospice. I spoke to her daughter and informed her of this need. Review of Systems Review of Systems: Constitutionalno fever or chills ENTno blurred vision, no double vision, no epistaxis, no sore throat Respiratoryno cough, no wheezing, no shortness of breath Cardiacno palpitations, no chest pain, no syncope Sydni nausea, vomiting, diarrhea, melena, hematochezia GUno urinary retention, no urinary incontinence, no dysuria, no hematuria Musculoskeletalright shoulder bruising and tenderness from distal clavicular fracture Skinno bruising, no rashes, no pruritus Neurogeneralized weakness, no paresthesia, no weakness Psychno depression, no anxiety Physical Exam Physical Exam: General-alert and oriented x3, no fever, no chills HEENT-head atraumatic and normocephalic, pupils equal and reactive to light, extraocular muscles intact Neck-no lymphadenopathy or thyromegaly, trachea midline Chest-clear to auscultation. No rales, wheezing or rhonchi Cardiac-regular rate and rhythm, normal S1 and S2 Abdomen-normal bowel sounds, no hepatosplenomegaly Extremities-right shoulder is bruised Neuro-cranial nerves II through XII intact, motor and sensory function within normal limits, strength symmetrical with generalized weakness, no focal deficits Psych-normal affect, normal mood Results & Data Results & Data Vital Signs (Past 12 Hours) Vital Signs Temp Pulse Resp BP Pulse Ox O2 Del Method 01/21/25 07:55 37.4 C 87 18 149/72 H 90 Room Air 01/21/25 07:15 Room Air PG Care Time/CCT Total # of Minutes Spent Total Time Spent with Patient: Total time spent is greater than 50% in coordination of care (as documented) at patient's floor/unit and/or counseling patient: Coding Level of Care Code 88310 SUB INP/OBS CARE 2/35MIN Diagnoses Closed fracture of right clavicle S42.031A Clavicle location: lateral end Encounter type: initial encounter Fracture alignment: displaced Fall W19.XXXA Encounter type: initial encounter Polymorphic ventricular tachycardia I47.29 Dementia F03.B11 Dementia behavioral or psychological symptom: with agitation Dementia severity: moderate Dementia type: unspecified type Essential (primary) hypertension I10 Chronic kidney disease, stage II (mild) N18.2 (1) Closed fracture of right clavicle Clavicle location: lateral end Encounter type: initial encounter Fracture alignment: displaced Qualified Code(s): S42.031A - Displaced fracture of lateral end of right clavicle, initial encounter for closed fracture (2) Fall Encounter type: initial encounter Qualified Code(s): W19.XXXA - Unspecified fall, initial encounter (4) Dementia Dementia behavioral or psychological symptom: with agitation Dementia severity: moderate Dementia type: unspecified type Qualified Code(s): F03.B11 - Unspecified dementia, moderate, with agitation
[2025-01-22] MEDS: MoRPHine SULFATE 2 MG/ML CARP IV STA (06:22)
--- NOTE | 2025-01-22 11:06 | Discharge Summary ---
Discharge Summary Date of Service January 22, 2025 Principal Dx & Hospital Course #1 = Principal Diagnosis (1) Closed fracture of right clavicle: Nonsurgical management. Pain control measures. Right arm in sling. Appreciate orthopedic consultation and recommendations (2) Fall: Mechanical. Resulting in fracture of the distal right clavicle. Supportive care (3) Polymorphic ventricular tachycardia: Seen on admission. She was evaluated by cardiology. She was temporarily on an amiodarone drip which has been discontinued due to comfort measures only status at this time (4) Dementia: Chronic. Supportive care (5) Essential (primary) hypertension: No further treatment. Comfort measures only (6) Chronic kidney disease, stage II (mild): No further treatment. Comfort measures only Plan She will be discharged to [facility] today, January 22 . Vuong catheter remains in place at discharge. Hospice will continue to provide care for the patient at [facility] Discharge Exam General-alert and oriented x3, no fever, no chills HEENT-head atraumatic and normocephalic, pupils equal and reactive to light, extraocular muscles intact Neck-no lymphadenopathy or thyromegaly, trachea midline Chest-clear to auscultation. No rales, wheezing or rhonchi Cardiac-regular rate and rhythm, normal S1 and S2 Abdomen-normal bowel sounds, no hepatosplenomegaly Extremities-right shoulder is bruised Neuro-cranial nerves II through XII intact, motor and sensory function within normal limits, strength symmetrical with generalized weakness, no focal deficits Psych-normal affect, normal mood Discharge Plan Discharge Items Patient Disposition: Transfer [facility] Reason For Visit: FALLS, ARRHYTHMIA Discharge Diagnosis: Mechanical fall, right clavicular fracture, polymorphic ventricular tachycardia, Mobitz type II second-degree AV block Activity: As commented below Activity Comment: Bed rest Non-emergency contact: Primary Care Provider Call non-emergency contact if: your symptoms worsen Follow-up/Referrals: [facility] [Primary Care Provider] - Diet: Regular Addtl Attending Provider Instructions: Continue hospice care. Continue topical fentanyl patch for pain control. Vuong catheter remains in place. Pending Studies at Discharge: No Stand-Alone Forms: [facility] Skilled Items Patient informed of condition?: Yes DNR: Yes Discharge Level of Care: Skilled Communicable Disease: No Discharge Prognosis: Stable Lines: None Urinary Catheter: Yes Medications and DC Order Prescriptions: New morphine concentrate 100 mg/5 mL (20 mg/mL) Solution 5 mg PO Q4H PRN (Reason: pain) Qty: 10 0RF lorazepam 0.5 mg Tablet 0.5 mg PO Q6H PRN (Reason: anxiety) Qty: 10 0RF fentanyl 12 mcg/hr Patch 72 Hour 1 patch transdermal Q3D Qty: 5 0RF acetaminophen 325 mg Tablet 650 mg PO Q4H PRNQty: 0 0RF Continued fentanyl 12 mcg/hr patch 72 hour 1 patch transdermal Q72H Qty: 5 0RF Discontinued acetaminophen 325 mg Tablet 650 mg PO Q4H PRNQty: 0 0RF morphine 2 mg/mL Syringe 1 mg IV Q3H PRNQty: 0 0RF Discharge Orders: Discharge Order (Routine); Ordered 01/22/25 Ordered By: Chad Naylor Admission Data Admit Date/Time: 01/20/25 12:44 Attending Provider: Chad Naylor Admit Provider: Faiza Rojas Primary Care Provider: Jasmin Chase Other Providers: [facility] Hospital Stay Data Pending Results Patient Have Any Pending Studies at Discharge: No Discharge Instructions Given to Patient (Per Discharging Provider) Continue hospice care. Continue topical fentanyl patch for pain control. Vuong catheter remains in place. Total Time Total Time Spent Total Time Spent (In Minutes): 45 minutes Coding Level of Care Code 67662 INP/OBS DISCH >30 MIN Diagnoses Closed fracture of right clavicle S42.031A Clavicle location: lateral end Encounter type: initial encounter Fracture alignment: displaced Fall W19.XXXA Encounter type: initial encounter Polymorphic ventricular tachycardia I47.29 Dementia F03.B11 Dementia behavioral or psychological symptom: with agitation Dementia severity: moderate Dementia type: unspecified type Essential (primary) hypertension I10 Chronic kidney disease, stage II (mild) N18.2
[2025-01-22] MEDS: LORazepam 0.5 MG TAB PO PRN (13:04)
[2025-01-22] MEDS: MoRPHine SULFATE 10 MG/0.5 ML UDP PO PRN (13:25)
== END 2025-01-22 16:49 | DRG 563 ==
LOC: 3W 12:44